=== PATIENT | female | born 1965 | race Caucasian/White ===

== ENCOUNTER 2016-12-18 11:28 | Inpatient (IN) | payer OTHER ==
[~2016-12-18] VITALS: Ht 152.4 cm; Wt 53.6 kg
[~2016-12-18 11:28] MED LIST: ALBU8.5H3 INH; AZIT500T3 PO; FURO-109 PO; GUAI120S26 PO; IBUP-1542 PO; POTA8CAP PO; SENN-8 PO; TRAM50TA2 PO
--- NOTE | 2016-12-18 11:39 | ERA ---
ER Documentation Chief Complaint Date/Time DATE: 12/18/16 TIME: 11:39 Chief Complaint chest tightness for 2 wks with no associated cough and congestion no n/v HPI The patient is a 51-year-old female, presenting to the ER because of intermittent substernal chest tightness 6/10 for the last 2 weeks, associated with dyspnea. She denies fever, chills, neck pain, chest pain with exertion or vomiting or diaphoresis. He denies abdominal pain, vomiting, dysuria, diarrhea. She does not smoke or drink Past medical history: History of left breast carcinoma undergoing chemotherapy Past surgical history: Left breast lumpectomy ROS All systems reviewed and are negative except as per history of present illness. Medications Home Meds Active Scripts Albuterol Sulfate* (Proair HFA*) 8.5 Gm Hfa.aer.ad, 2 PUFF INH Q4, #1 INHALER Prov:JENNY MEZA PA-C 10/15/16 Tramadol HCl (Tramadol HCl) 50 Mg Tablet, 50 MG PO Q6 Y for PAIN, #20 TAB Prov:COLT CANTU NP 10/03/16 Ibuprofen* (Motrin*) 600 Mg Tab, 600 MG PO Q6H Y for PAIN AND OR ELEVATED TEMP, #30 TAB Prov:COLT CANTU NP 10/03/16 Furosemide* (Lasix*) 40 Mg Tablet, 40 MG PO DAILY, #20 TAB Prov:SOY KC MD 12/21/15 Sennosides/Docusate Sodium* (Senna-S*) 1 Tab Tablet, 2 TAB PO DAILY for 30 Days , TAB Prov:POLO ALEXANDER 10/19/15 Potassium Chloride* (Potassium Chloride*) 8 Meq Capsule.er, 8 MEQ PO DAILY for 30 Days, CAP Prov:BRITANY MEJIAS MD 10/17/15 Discontinued Scripts Ghbalafdhqj-C-Fwpavemhao Hb* (Guaifenesin* DM Syrup) 120 Ml Syrup, 10 ML PO Q4H Y for COUGH, #120 ML Prov:JENNY MEZA PA-C 10/15/16 Ibuprofen* (Motrin*) 600 Mg Tab, 600 MG PO Q6, #30 TAB Prov:JENNY MEZA PA-C 10/15/16 Albuterol Sulfate* (Proair HFA*) 8.5 Gm Hfa.aer.ad, 2 PUFF INH Q4, #1 INHALER Prov:MALLORIE SOUZA 09/15/16 Azithromycin* (Zithromax*) 500 Mg Tablet, 500 MG PO DAILY for 5 Days, TAB Prov:MALLORIE SOUZA 09/15/16 Ibuprofen* (Motrin*) 600 Mg Tab, 600 MG PO Q6H Y for PAIN AND OR ELEVATED TEMP, #30 TAB Prov:MOISSÉ TONY [employer] ATTENDANT 06/07/16 Allergies Allergies: Coded Allergies: No Known Allergy (Verified , 09/15/16) PMhx/Soc History of Surgery: Yes (left sided mastectomy) Anesthesia Reaction: No Hx Neurological Disorder: No Hx Respiratory Disorders: No Hx Cardiac Disorders: No Hx Psychiatric Problems: No Hx Miscellaneous Medical Probl: Yes (breast cancer) Hx Alcohol Use: No Hx Substance Use: No Hx Tobacco Use: No Physical Exam Vitals Vital Signs Date Time Temp Pulse Resp B/P Pulse Ox O2 Delivery O2 Flow Rate FiO2 12/18/16 12:34 97.8 79 18 114/74 98 Room Air 12/18/16 11:30 98.8 45 20 122/81 99 Physical Exam Const: No acute distress. Head: Atraumatic. Eyes: Normal Conjunctiva. ENT: Normal External Ears, Nose and Mouth. Neck: Full range of motion. No meningismus. Resp: Clear to auscultation bilaterally. Cardio: Regular rate and rhythm, no murmurs. Abd: Soft, non distended, normal bowel sounds, non tender. Skin: No petechiae or rashes. Back: No midline or flank tenderness. Ext: No cyanosis, or edema. Neur: Awake and alert. No focal deficit Psych: Normal Mood and Affect. Result Diagram: 12/18/16 1230 12/18/16 1230 Results 24 hrs Laboratory Tests Test 12/18/16 12:30 Activated Partial Thromboplast Time 24.9Sec Anion Gap 17 Basophils # 0.010^3/ul Basophils % 0.6% Blood Urea Nitrogen 14mg/dl Calcium Level 9.3mg/dl Carbon Dioxide Level 26mmol/L Chloride Level 104mmol/L Creatinine 0.61mg/dl Eosinophils # 0.110^3/ul Eosinophils % 1.7% Glucose Level 91mg/dl Hematocrit 41.0% Hemoglobin 13.6g/dl INR International Normalized Ratio 1.01 Lymphocytes # 1.510^3/ul Lymphocytes % 32.3% Magnesium Level 2.2mg/dl Mean Corpuscular Hemoglobin 28.7pg Mean Corpuscular Hemoglobin Concent 33.2g/dl Mean Corpuscular Volume 86.5fl Mean Platelet Volume 9.9fl Monocytes # 0.410^3/ul Monocytes % 7.9% Neutrophils # 2.710^3/ul Neutrophils % 57.3% Nucleated Red Blood Cells # 0.010^3/ul Nucleated Red Blood Cells % 0.0/100WBC Platelet Count 99828^3/UL Potassium Level 4.0mmol/L Prothrombin Time 13.3Sec Prothrombin Time Ratio 1.0 Red Blood Count 4.7410^6/ul Red Cell Distribution Width 17.7% Serum HCG, Qualitative NEGATIVE Sodium Level 143mmol/L Troponin I < 0.012ng/ml White Blood Count 4.710^3/ul Current Medications Medications (Trade) Dose Ordered Sig/Katerin Route PRN Reason Start Time Stop Time Status Last Admin Dose Admin IV Flush 10 ml 10 ml STK-MED ONCE .ROUTE 12/18/16 13:29 12/18/16 13:30 DC 12/18/16 13:52 Sodium Chloride (NS) 100 ml @ ud STK-MED ONCE .ROUTE 12/18/16 13:29 12/18/16 13:30 DC 12/18/16 13:53 Iodixanol (Visipaque Locm) 100 ml STK-MED ONCE .ROUTE 12/18/16 13:29 12/18/16 13:30 DC 12/18/16 13:48 Iodixanol (Visipaque Locm) 50 ml STK-MED ONCE .ROUTE 12/18/16 13:29 12/18/16 13:30 DC 12/18/16 13:48 Procedures/MDM EKG: Read by emergency physician at 11:38 PM Rate/Rhythm: Normal Sinus Rhythm 86 beats/min QRS, ST, T-waves: No ST elevation, no T inversion, PVC, bigeminy Impression: Abnormal EKG EKG: Read by emergency physician at 12:15 PM Rate/Rhythm: Normal Sinus Rhythm 78 beats/min QRS, ST, T-waves: No ST elevation, no T inversion, PVC, low voltage Impression: Abnormal EKG [place] [address] Radiology Main Line: [phone] DIAGNOSTIC IMAGING REPORT Patient: TRINI CARRERA : 1965 Age: 51 Sex: F MR #: [id number] DOS: 12/18/16 1137 Ordering MD: LOULOU CONNELLY MD Location: E/R Room/Bed: PROCEDURE: Chest Radiograph. CLINICAL INDICATION: Chest pain. TECHNIQUE: Single frontal chest radiograph. COMPARISON: Chest radiograph 10/15/2016 FINDINGS: A right chest wall port infusion catheter remains in place. There are small to moderate bilateral pleural effusions with adjacent atelectasis/infiltrate, stable to slightly worsened. Heart size is poorly evaluated. Right axillary clips are present. The bones are intact. IMPRESSION: 1. Bilateral pleural effusions with adjacent atelectasis/infiltrate, stable to slightly worsened when compared to 10/15/2016. 2. Otherwise stable radiographic appearance of the chest. RPTAT: KK .Ranjeet Blakely MD, MD Date Time Electronically viewed and signed by .Ranjeet Blakely MD, MD on 2016 12:34 .B/ CC: LOULOU CONNELLY MD [place] [address] Radiology Main Line: [phone] DIAGNOSTIC IMAGING REPORT Patient: TRINI CARRERA : 1965 Age: 51 Sex: F MR #: [id number] DOS: 12/18/16 1146 Ordering MD: LOULOU CONNELLY MD Location: E/R Room/Bed: PROCEDURE: CT ANGIOGRAPHY CHEST CLINICAL INDICATION: Shortness of breath TECHNIQUE: Volumetrically acquired images of the thorax obtained with intravenous contrast were reformatted in the axial, coronal, and sagittal planes. CTDI = 6.0 mGy; DLP = 212 mGy-cm. 100 cc of Omnipaque 350 was administered. 3D MIP multiplanar reconstructions were performed and evaluated on the workstation. One or more of the following dose reduction technique were used: Automatic exposure control, adjustment of the mA and/or kV according to patient size, and use of iterative reconstruction technique. COMPARISON: Chest x-ray from 12/18/2016. FINDINGS: LOWER NECK AND CHEST WALL: Normal. AIRWAYS: The trachea and large airways are normal. Minimal bronchial wall thickening is seen. LUNGS: There is mild lung scarring seen at the lung bases. Dependent atelectasis is seen. The lungs otherwise clear. No suspicious nodules, masses, or consolidation. PLEURA: Moderate bilateral pleural effusion with associated atelectasis.. LYMPH NODES: No significant axillary, hilar, or mediastinal lymphadenopathy by CT size criteria. CARDIAC: The heart size is normal. No pericardial effusion. VASCULAR: Technically adequate opacification of the pulmonary arteries; no fill defects are seen. The aorta and main pulmonary artery are normal in caliber. OSSEOUS: No suspicious osseous lesions. Limited evaluation of the upper abdomen is unremarkable. IMPRESSION: 1. No pulmonary embolism. 2. Moderate bilateral effusions with associated atelectasis. Minimal bronchial wall thickening may be sequela of bronchitis, asthma, or other nonspecific airway inflammation. RPTAT:PP .Abhishek Gaming MD, MD Date Time Electronically viewed and signed by .Ahbishek Gaming MD, MD on 12/18/2016 13:58 .V/ CC: LOULOU CONNELLY MD MEDICAL MAKING DECISION: The patient is a 51-year-old female, presenting with acute chest pain. She was treated with aspirin 325 mg p.o. and 1 inch of nitroglycerin with good response. The differential diagnoses considered include but are not limited to acute coronary syndrome, acute myocardial infarction, pericarditis, pulmonary embolism, aortic dissection, pneumonia, pleural effusion, pneumothorax, GERD, chest wall pain. Departure Diagnosis: Primary Impression: Chest pain Additional Impression: Bilateral pleural effusion Condition: Stable Comments I discussed the findings with the patient. I discussed the patient with the on- call hospitalist Dr. Rueda who was made aware of the lab, the treatment, the patient condition. The patient is admitted to telemetry at 2:20 PM LOULOU CONNELLY MD Dec 18, 2016 11:39
[2016-12-18 12:34] VITALS: TEMP 97.8
--- NOTE | 2016-12-18 12:34 | RADRPT ---
PROCEDURE: Chest Radiograph. CLINICAL INDICATION: Chest pain. TECHNIQUE: Single frontal chest radiograph. COMPARISON: Chest radiograph 10/15/2016 FINDINGS: A right chest wall port infusion catheter remains in place. There are small to moderate bilateral p leural effusions with adjacent atelectasis/infiltrate, stable to slightly worsened. Heart size is p oorly evaluated. Right axillary clips are present. The bones are intact. IMPRESSION: 1. Bilateral pleural effusions with adjacent atelectasis/infiltrate, stable to slightly worsened wh en compared to 10/15/2016. 2. Otherwise stable radiographic appearance of the chest. RPTAT: KK .Ranjeet Blakely MD, MD Date Time Electronically viewed and signed by .Ranjeet Blakely MD, on 12/18/2016 12:34 .B/
[2016-12-18 12:42] LABS: ADD SCAN DIFF NO
[2016-12-18 12:50] LABS: BASOPHILS % 0.6 % (0.0-2.0); EOSINOPHILS # 0.1 10^3/ul (0.0-0.5); EOSINOPHILS % 1.7 % (0.0-7.0); HEMOGLOBIN 13.6 g/dl (12.0-16.0); LYMPHOCYTES # 1.5 10^3/ul (0.8-2.9); LYMPHOCYTES % 32.3 % (15.0-51.0); MEAN CORPUSCULAR HEMOGLOBIN 28.7 pg (29.0-33.0); MEAN CORPUSCULAR HGB CONC 33.2 g/dl (32.0-37.0); MEAN CORPUSCULAR VOLUME 86.5 fl (82.0-101.0); MEAN PLATELET VOLUME 9.9 fl (7.4-10.4); MONOCYTE # 0.4 10^3/ul (0.3-0.9); MONOCYTES % 7.9 % (0.0-11.0); NEUTROPHIL # 2.7 10^3/ul (1.6-7.5); NEUTROPHILS % 57.3 % (39.0-77.0); PLATELET COUNT 289 10^3/UL (140-415); RED BLOOD COUNT 4.74 10^6/ul (4.20-5.40); RED CELL DISTRIBUTION WIDTH 17.7 % (11.5-14.5); WHITE BLOOD COUNT 4.7 10^3/ul (4.8-10.8)
[2016-12-18 12:55] LABS: CHLORIDE 104 mmol/L (97-110)
[2016-12-18 12:56] LABS: INR 1.01; PROTIME 13.3 Sec (12.2-14.2); SODIUM 143 mmol/L (135-144)
[2016-12-18 12:57] LABS: PARTIAL THROMBOPLASTIN TIME 24.9 Sec (25.0-35.0)
[2016-12-18 12:58] LABS: CREATININE 0.61 mg/dl (0.44-1.00)
[2016-12-18 12:59] LABS: ANION GAP 17 (8-16); BLOOD UREA NITROGEN 14 mg/dl (7-20); CALCIUM 9.3 mg/dl (8.4-10.2); CARBON DIOXIDE 26 mmol/L (21-31); GLUCOSE 91 mg/dl (70-220)
[2016-12-18 13:19] LABS: TROPONIN-I < 0.012 ng/ml (0.00-0.12)
[2016-12-18] MEDS ORDERED: IODIXANOL LOCM 100 ML BTL ONE (13:29)
[2016-12-18] MEDS ORDERED: IODIXANOL LOCM 50 ML BTL ONE (13:29)
[2016-12-18] MEDS ORDERED: SOD CHLORIDE 0.9% 100 ML ONE (13:29)
--- NOTE | 2016-12-18 13:58 | RADRPT ---
PROCEDURE: CT ANGIOGRAPHY CHEST CLINICAL INDICATION: Shortness of breath TECHNIQUE: Volumetrically acquired images of the thorax obtained with intravenous contrast were re formatted in the axial, coronal, and sagittal planes. CTDI = 6.0 mGy; DLP = 212 mGy-cm. 100 cc of O mnipaque 350 was administered. 3D MIP multiplanar reconstructions were performed and evaluated on t workstation. One or more of the following dose reduction technique were used: Automatic exposure control, adjustment of the mA and/or kV according to patient size, and use of iterative reconstructi on technique. COMPARISON: Chest x-ray from 12/18/2016. FINDINGS: LOWER NECK AND CHEST WALL: Normal. AIRWAYS: The trachea and large airways are normal. Minimal bronchial wall thickening is seen. LUNGS: There is mild lung scarring seen at the lung bases. Dependent atelectasis is seen. The lung s otherwise clear. No suspicious nodules, masses, or consolidation. PLEURA: Moderate bilateral pleural effusion with associated atelectasis.. LYMPH NODES: No significant axillary, hilar, or mediastinal lymphadenopathy by CT size criteria. CARDIAC: The heart size is normal. No pericardial effusion. VASCULAR: Technically adequate opacification of the pulmonary arteries; no fill defects are seen. T aorta and main pulmonary artery are normal in caliber. OSSEOUS: No suspicious osseous lesions. Limited evaluation of the upper abdomen is unremarkable. IMPRESSION: 1. No pulmonary embolism. 2. Moderate bilateral effusions with associated atelectasis. Minimal bronchial wall thickening may b e sequela of bronchitis, asthma, or other nonspecific airway inflammation. RPTAT:PP .Abhishek Gaming MD, Date Time Electronically viewed and signed by .Abhishek Gaming MD, MD on 12/18/2016 13:58 .V/
[2016-12-18] MEDS ORDERED: NITROGLYCERIN 2% 1 GM OINT PKT TD ONE (14:30)
[2016-12-18] MEDS ORDERED: SOD CHLORIDE 0.9% 1,000 ML IV ONE (14:30)
[2016-12-18] MEDS ORDERED: ASPIRIN 325 MG TAB PO ONE (14:30)
[2016-12-18 17:12] VITALS: PULSE 77
[2016-12-18 17:47] VITALS: Ht 152.4 cm; Wt 53.6 kg
[2016-12-18] MEDS ORDERED: IBUPROFEN 600 MG TAB PO PRN (18:30)
[2016-12-18] MEDS ORDERED: ONDANSETRON 4 MG INJ IV PRN (18:30)
[2016-12-18] MEDS ORDERED: traMADol 50 MG TAB PO PRN (18:30)
[2016-12-18] MEDS ORDERED: NACL 0.9% 3 ML SYG IV SCH (18:30)
[2016-12-18] MEDS ORDERED: morphine 2 MG INJ IV PRN (18:30)
[2016-12-18] MEDS ORDERED: ZOLPIDEM 5 MG TAB PO PRN (18:30)
[2016-12-18] MEDS ORDERED: HYDROCODONE/APAP (5/325) TAB PO PRN (18:30)
[2016-12-18] MEDS ORDERED: ACETAMINOPHEN 325 MG TAB PO PRN (18:30)
[2016-12-18] MEDS ORDERED: VANCOMYCIN IV PER PHARMACY XX SCH (18:30)
[2016-12-18 18:49] LABS: CREATINE KINASE 65 IU/L (23-200)
[2016-12-18 18:59] LABS: CK-MB 0.41 ng/ml (0.0-2.4)
[2016-12-18 19:06] LABS: TROPONIN-I < 0.012 ng/ml (0.00-0.12)
[2016-12-18 20:00] VITALS: PULSE 82
[2016-12-18] MEDS ORDERED: VANCOMYCIN 1 GM in NS 250 ML IVPB SCH (20:00)
[2016-12-18 20:01] VITALS: BP 111/76; RESP 16
[2016-12-18] MEDS: ALBUTEROL HFA 8 GM INHALER INH SCH (20:36)
--- NOTE | 2016-12-18 20:40 | HP ---
DATE OF ADMISSION: 12/18/2016 CHIEF COMPLAINT: Chest pain. HISTORY OF PRESENT ILLNESS: The patient is a 51-year-old female with a history of left-sided breast cancer as well as a left upper extremity cellulitis. The patient presents with chest pain. She st ates it has been going on for 2 weeks. She has no cardiac history. She has no other complaints. PAST MEDICAL HISTORY: As per HPI. HOME MEDICATIONS: 1. Albuterol. 2. Tramadol. 3. Ibuprofen. 4. Furosemide. 5. Senna. 6. Potassium. ALLERGIES: NO KNOWN DRUG ALLERGIES. FAMILY HISTORY: Noncontributory. SOCIAL HISTORY: No alcohol, tobacco or drug use. REVIEW OF SYSTEMS: A 12-point review of systems negative except as in HPI. PHYSICAL EXAMINATION: VITAL SIGNS: Temperature is 97.8, pulse 79, respirations 18, BP is 114/74, saturation 98% room air. GENERAL: No acute distress, alert and oriented. HEENT: Normocephalic, atraumatic. Pupils equal, round, and reactive to light. CHEST: Clear to auscultation. CARDIOVASCULAR: Regular rate and rhythm. ABDOMEN: Nondistended, nontender. EXTREMITIES: No clubbing, cyanosis, or edema. MUSCULOSKELETAL: Tenderness to palpation in the chest. LABORATORIES: White count 4.7, hemoglobin 13.6. Chemistry within normal limits. Troponins were ne gative x2. DIAGNOSTICS: Chest x-ray shows bilateral pleural effusions with adjacent atelectasis infiltrate, st able, slightly worsened compared to 10/15/2016. CT of the chest shows no pulmonary embolism, modera te bilateral effusions with associated atelectasis, possible bronchitis. ASSESSMENT AND PLAN: 1. Chest pain is atypical, likely musculoskeletal. It is reproducible with palpation. First set o f troponins are negative. EKG shows no signs of ischemia, sinus rhythm. We will follow up on third troponin. If stable, we will discharge. 2. History of breast cancer, stable. 3. History of left arm cellulitis, stable, no acute issues. 4. Prophylaxis: Lovenox. Dictated By: YASMINE SAHU MD BS/NTS Conf#: [id number] DID#: [id number]
[2016-12-19] VITALS (7 sets, daily range): BP systolic 101–119; BP diastolic 59–73; PULSE 82–87; RESP 16–20
[2016-12-19 00:03] LABS: CREATINE KINASE 54 IU/L (23-200)
[2016-12-19 00:16] LABS: CK-MB < 0.22 ng/ml (0.0-2.4)
[2016-12-19 00:17] LABS: TROPONIN-I < 0.012 ng/ml (0.00-0.12)
[2016-12-19] MEDS: ALBUTEROL HFA 8 GM INHALER INH SCH ×3 (01:00→08:43)
[2016-12-19] MEDS ORDERED: VANCOMYCIN 750 MG in SOD CHLORIDE 0.9% 150 ML IVPB SCH (08:00)
[2016-12-19] MEDS ORDERED: FUROSEMIDE 40 MG TAB PO SCH (09:00)
[2016-12-19] MEDS ORDERED: INFLUENZA VIRUS VACCINE 0.5 ML (DISPENSING) IM* ONE (09:00)
[2016-12-19] MEDS ORDERED: SENNA/DOCUSATE NA (8.6MG/50MG) TAB PO SCH (09:00)
[2016-12-19] MEDS ORDERED: POTASSIUM CHLORIDE (SR) 8 MEQ CAP PO SCH (09:00)
[2016-12-19] MEDS ORDERED: ENOXAPARIN 40 MG/0.4 ML SYG SC SCH (09:00)
[2016-12-19 10:02] LABS: ADD SCAN DIFF NO
[2016-12-19 10:04] LABS: BASOPHILS % 0.4 % (0.0-2.0); EOSINOPHILS # 0.1 10^3/ul (0.0-0.5); EOSINOPHILS % 2.4 % (0.0-7.0); HEMATOCRIT 39.9 % (37.0-47.0); HEMOGLOBIN 13.1 g/dl (12.0-16.0); LYMPHOCYTES # 1.3 10^3/ul (0.8-2.9); LYMPHOCYTES % 28.2 % (15.0-51.0); MEAN CORPUSCULAR HEMOGLOBIN 28.1 pg (29.0-33.0); MEAN CORPUSCULAR HGB CONC 32.8 g/dl (32.0-37.0); MEAN CORPUSCULAR VOLUME 85.4 fl (82.0-101.0); MEAN PLATELET VOLUME 9.7 fl (7.4-10.4); MONOCYTE # 0.3 10^3/ul (0.3-0.9); MONOCYTES % 5.7 % (0.0-11.0); NEUTROPHIL # 2.9 10^3/ul (1.6-7.5); NEUTROPHILS % 63.1 % (39.0-77.0); PLATELET COUNT 270 10^3/UL (140-415); RED BLOOD COUNT 4.67 10^6/ul (4.20-5.40); WHITE BLOOD COUNT 4.5 10^3/ul (4.8-10.8)
[2016-12-19 10:17] LABS: POTASSIUM 3.8 mmol/L (3.5-5.1)
[2016-12-19 10:19] LABS: CREATININE 0.54 mg/dl (0.44-1.00)
[2016-12-19 10:20] LABS: CALCIUM 8.8 mg/dl (8.4-10.2); MAGNESIUM 2.2 mg/dl (1.7-2.5); PHOSPHORUS 2.8 mg/dl (2.5-4.9)
--- NOTE | 2016-12-19 10:39 | PDOCDIS ---
Discharge Instructions CONDITION Patient Condition: Good HOME CARE INSTRUCTIONS: Diet Instructions: Regular ACTIVITY: Activity Restrictions: No Restrictions FOLLOW UP/APPOINTMENTS Appointments F/U WITH YOUR PCP IN 1-2 WEEKS YASMINE SAHU Dec 19, 2016 10:38
--- NOTE | 2016-12-19 15:34 | DS ---
DATE OF ADMISSION: 12/18/2016 DATE OF DISCHARGE: 12/19/2016 DISCHARGE DIAGNOSES: 1. Chest pain, musculoskeletal in origin, ACS ruled out. 2. History of breast cancer, stable. 3. History of left arm cellulitis, stable. No acute issues. HOSPITAL COURSE: The patient is a 51-year-old female with history of left-sided breast cancer statu s post chemotherapy and what sounds like either a lumpectomy or mastectomy. The patient has recurre nt left upper extremity cellulitis in the past, but at this time, she presented with chest pain. No reports of any cellulitis in the arm. The patient's chest pain was reproducible with palpation. S he was admitted to rule out any ACS. Troponins are negative x3. Of note, her EKG showed no signs o f ischemia, sinus rhythm. The patient's chest pain was improved on day of discharge. She was recom mended to take ibuprofen for chest pain. On the day of discharge, the patient's vitals and labs wer e stable. She had no acute complaints. Questions were answered. CONDITION ON DISCHARGE: Stable. DISPOSITION: To home. MEDICATIONS: The patient is to continue her usual home medications. No new medications prescribed. FOLLOWUP: The patient is to follow up with PCP in 1 to 2 weeks. Greater than 30 minutes was spent coordinating discharge of patient. Dictated By: YASMINE SAHU MD BS/NTS Conf#: [id number] DID#: [id number]
== END 2016-12-19 13:12 | disposition home or self-care (01) | DRG 313 ==
LOC: E/R 11:28 → MS4 14:25
PROVIDERS: ADMIT Internal Medicine; ATTEND Internal Medicine
DX: R07.89 Other chest pain (principal); Z85.3 Personal history of malignant neoplasm of breast
CPT/HCPCS: 36415; 71010; 71275; 80048; 82550; 82553; 83735; 84100; 84484; 84703; 85025; 85610; 85730; 90686; 93005; J1650; J3370; J7030; Q9967

== ENCOUNTER 2017-01-13 10:30 | Emergency (ER) | payer OTHER ==
[~2017-01-13] VITALS: Ht 152.4 cm; Wt 54.5 kg
[~2017-01-13 10:30] MED LIST changes: -AZIT500T3 PO; -GUAI120S26 PO
[2017-01-13 10:33] VITALS: Ht 152.4 cm; Wt 54.5 kg
[2017-01-13] MEDS ORDERED: PROM5SYR2 PO (11:00)
[2017-01-13] MEDS ORDERED: AZIT250T94 PO (11:00)
--- NOTE | 2017-01-13 11:09 | ERD ---
ER Documentation Chief Complaint Date/Time DATE: 01/13/17 TIME: 11:06 Chief Complaint Complains of cough x 1 week HPI Patient is a 51-year-old female who presents complaining of cough with some yellow phlegm for the past week. She states during the first few days she has had fever but she no longer has fever. Cough is worse at night. Denies any shortness of breath or palpitations. Denies any nausea or vomiting or diarrhea. She has been taking NyQuil to help with the symptoms. ROS All systems reviewed and are negative except as per history of present illness. Medications Home Meds Active Scripts Promethazine HCl/Codeine (Prometh-Codein 6.25-10 mg/5 ml) 5 Ml Syrup, 5 ML PO Q6 , #4 OZ Prov:STEVO MAXWELL PA-C 01/13/17 Azithromycin* (Zithromax*) 250 Mg Tablet, 250 MG PO .ZPACK DIRECTED, #6 TAB TAKE 500 MG (2 TABS) THE FIRST DAY THEN 250 MG (1 TAB) DAYS 2-5 Prov:STEVO MAXWELL PA-C 01/13/17 Albuterol Sulfate* (Proair HFA*) 8.5 Gm Hfa.aer.ad, 2 PUFF INH Q4, #1 INHALER Prov:JENNY MEZA PA-C 10/15/16 Tramadol HCl (Tramadol HCl) 50 Mg Tablet, 50 MG PO Q6 Y for PAIN, #20 TAB Prov:COLT CANTU NP 10/03/16 Ibuprofen* (Motrin*) 600 Mg Tab, 600 MG PO Q6H Y for PAIN AND OR ELEVATED TEMP, #30 TAB Prov:COLT CANTU NP 10/03/16 Furosemide* (Lasix*) 40 Mg Tablet, 40 MG PO DAILY, #20 TAB Prov:SOY KC MD 12/21/15 Sennosides/Docusate Sodium* (Senna-S*) 1 Tab Tablet, 2 TAB PO DAILY for 30 Days , TAB Prov:POLO ALEXANDER 10/19/15 Potassium Chloride* (Potassium Chloride*) 8 Meq Capsule.er, 8 MEQ PO DAILY for 30 Days, CAP Prov:BRITANY MEJIAS MD 10/17/15 Allergies Allergies: Coded Allergies: No Known Allergy (Verified , 09/15/16) PMhx/Soc History of Surgery: Yes (LEFT MASTECTOMY) Anesthesia Reaction: No Hx Neurological Disorder: No Hx Respiratory Disorders: No Hx Cardiac Disorders: No Hx Psychiatric Problems: No Hx Miscellaneous Medical Probl: Yes (BREAST CANCER) Hx Alcohol Use: No Hx Substance Use: No Hx Tobacco Use: No FmHx Family History: No diabetes Physical Exam Vitals Vital Signs Date Time Temp Pulse Resp B/P Pulse Ox O2 Delivery O2 Flow Rate FiO2 01/13/17 10:33 98.0 94 20 118/75 97 Physical Exam General: well developed, well nourished, alert, nontoxic, no distress Head: normocephalic, atraumatic Eyes: PERRL, normal conjunctiva Neck: Supple, nontender, no lymphadenopathy, no midline tenderness Oropharynx: no tonsilar erythema or edema, uvula midline, no exudates, no kissing tonsils, no drooling Respiratory: Clear to auscaultation bilaterally, speaks in full sentences, no use of accesory muscles or labored breathing, no rales, ronchi, or wheezing Cardiovascular: RRR, No murmurs GI: soft, non tender, non distended, negative murphys sign, negative mcburneys point tenderness, no cva tenderness bilaterally, no rebound or guarding Procedures/MDM 51-year-old female presents with cough and congestion. Vital signs are all within normal limits that she is well-appearing in no distress. Her lungs are clear and I doubt pneumonia. Patient is discharged with azithromycin and cough syrup. Recommended this patient follow up with her primary care doctor within 48 hours or return to the emergency room for any worsening of symptoms. However this time I do believe there is suitable for outpatient management. I answered all their questions and they agreed with the plan and were discharged home. Departure Diagnosis: Primary Impression: Bronchitis Condition: Stable Patient Instructions: Bronchitis, Antiobiotic Treatment (Adult) Additional Instructions: Llame al doctor LULU y kathi alexey JOANIE PARA DENTRO DE 1-2 ABRAMS.Dgale a la secretaria que nosotros le instruimos hacer esta joanie.Avise o llame si isaac condicin se empeora antes de la joanie. Regresa aqui si peor o no mejor. STEVO MAXWELL PA-C Jan 13, 2017 11:09
== END 2017-01-13 11:33 | disposition home or self-care (01) ==
LOC: FTE 10:30
DX: J20.9 Acute bronchitis, unspecified (principal); Z85.3 Personal history of malignant neoplasm of breast
CPT/HCPCS: 99284

== ENCOUNTER 2017-02-25 10:28 | Emergency (ER) | payer OTHER ==
[~2017-02-25] VITALS: Ht 154.9 cm; Wt 56.0 kg
[~2017-02-25 10:28] MED LIST changes: +AZIT250T94 PO; +PROM5SYR2 PO
[2017-02-25 10:34] VITALS: Ht 154.9 cm; Wt 56.0 kg
--- NOTE | 2017-02-25 11:17 | ERA ---
ER Documentation Chief Complaint Date/Time DATE: 02/25/17 TIME: 11:17 Chief Complaint CHEST PAIN , SOB X 1 WEEK HPI The patient is a 51-year-old female, presenting to the ER because of intermittent substernal chest pain and dyspnea for 1 week. She has similar symptoms previously. The chest pain is worse with movement. She denies pleuritic chest pain, chest pain with exertion of vomiting or diaphoresis. She denies abdominal pain, dysuria, diarrhea. She does not smoke or drink Past medical history: History of left breast cancer, undergoing chemotherapy Past surgical history: Left lumpectomy ROS All systems reviewed and are negative except as per history of present illness. Medications Home Meds Active Scripts Promethazine HCl/Codeine (Prometh-Codein 6.25-10 mg/5 ml) 5 Ml Syrup, 5 ML PO Q6 , #4 OZ Prov:STEVO MAXWELL PA-C 01/13/17 Azithromycin* (Zithromax*) 250 Mg Tablet, 250 MG PO .ZPACK DIRECTED, #6 TAB TAKE 500 MG (2 TABS) THE FIRST DAY THEN 250 MG (1 TAB) DAYS 2-5 Prov:STEVO MAXWELL PA-C 01/13/17 Albuterol Sulfate* (Proair HFA*) 8.5 Gm Hfa.aer.ad, 2 PUFF INH Q4, #1 INHALER Prov:JENNY MEZA PA-C 10/15/16 Tramadol HCl (Tramadol HCl) 50 Mg Tablet, 50 MG PO Q6 Y for PAIN, #20 TAB Prov:COLT CANTU NP 10/03/16 Ibuprofen* (Motrin*) 600 Mg Tab, 600 MG PO Q6H Y for PAIN AND OR ELEVATED TEMP, #30 TAB Prov:COLT CANTU NP 10/03/16 Furosemide* (Lasix*) 40 Mg Tablet, 40 MG PO DAILY, #20 TAB Prov:SOY KC MD 12/21/15 Sennosides/Docusate Sodium* (Senna-S*) 1 Tab Tablet, 2 TAB PO DAILY for 30 Days , TAB Prov:POLO ALEXANDER 10/19/15 Potassium Chloride* (Potassium Chloride*) 8 Meq Capsule.er, 8 MEQ PO DAILY for 30 Days, CAP Prov:BRITANY MEJIAS MD 10/17/15 Reported Medications Capecitabine (Capecitabine) 500 Mg Tablet, 500 MG ORAL BID, #56 02/25/17 Allergies Allergies: Coded Allergies: No Known Allergy (Verified , 09/15/16) PMhx/Soc History of Surgery: Yes (LEFT MASTECTOMY) Anesthesia Reaction: No Hx Neurological Disorder: No Hx Respiratory Disorders: No Hx Cardiac Disorders: No Hx Psychiatric Problems: No Hx Miscellaneous Medical Probl: Yes (BREAST CANCER) Hx Alcohol Use: No Hx Substance Use: No Hx Tobacco Use: No Physical Exam Vitals Vital Signs Date Time Temp Pulse Resp B/P Pulse Ox O2 Delivery O2 Flow Rate FiO2 02/25/17 10:34 96.0 90 18 142/74 98 Physical Exam Const: No acute distress. Head: Atraumatic. Eyes: Normal Conjunctiva. ENT: Normal External Ears, Nose and Mouth. Neck: Full range of motion. No meningismus. Resp: Clear to auscultation bilaterally. Cardio: Regular rate and rhythm, no murmurs. Abd: Soft, non distended, normal bowel sounds, non tender. Skin: No petechiae or rashes. Back: No midline or flank tenderness. Ext: No cyanosis, or edema. Neur: Awake and alert. No focal deficit Psych: Normal Mood and Affect. Result Diagram: 02/25/17 1137 02/25/17 1137 Results 24 hrs Laboratory Tests Test 02/25/17 11:37 02/25/17 15:00 White Blood Count 3.510^3/ul Red Blood Count 4.3910^6/ul Hemoglobin 12.9g/dl Hematocrit 38.3% Mean Corpuscular Volume 87.2fl Mean Corpuscular Hemoglobin 29.4pg Mean Corpuscular Hemoglobin Concent 33.7g/dl Red Cell Distribution Width 18.8% Platelet Count 73386^3/UL Mean Platelet Volume 10.3fl Neutrophils % 77.1% Lymphocytes % 17.4% Monocytes % 2.0% Eosinophils % 2.6% Basophils % 0.6% Nucleated Red Blood Cells % 0.0/100WBC Neutrophils # 2.710^3/ul Lymphocytes # 0.610^3/ul Monocytes # 0.110^3/ul Eosinophils # 0.110^3/ul Basophils # 0.010^3/ul Nucleated Red Blood Cells # 0.010^3/ul Prothrombin Time 13.1Sec Prothrombin Time Ratio 1.0 INR International Normalized Ratio 0.99 Activated Partial Thromboplast Time 24.8Sec D-Dimer 674.40ng/ml D-Dimer Comment Sodium Level 138mmol/L Potassium Level 3.8mmol/L Chloride Level 100mmol/L Carbon Dioxide Level 26mmol/L Anion Gap 16 Blood Urea Nitrogen 20mg/dl Creatinine 0.52mg/dl Glucose Level 109mg/dl Calcium Level 9.2mg/dl Troponin I < 0.012ng/ml < 0.012ng/ml Current Medications Medications (Trade) Dose Ordered Sig/Katerin Route PRN Reason Start Time Stop Time Status Last Admin Dose Admin IV Flush 10 ml 10 ml STK-MED ONCE .ROUTE 02/25/17 14:12 02/25/17 14:13 DC 02/25/17 14:34 Sodium Chloride (NS) 100 ml @ ud STK-MED ONCE .ROUTE 02/25/17 14:12 02/25/17 14:13 DC 02/25/17 14:33 Iodixanol (Visipaque Locm) 100 ml STK-MED ONCE .ROUTE 02/25/17 14:12 02/25/17 14:13 DC 02/25/17 14:34 Procedures/MDM EKG: At 10:40 AM read by emergency physician Rate/Rhythm: Normal Sinus Rhythm 99 beats/min QRS, ST, T-waves: No ST elevation, no T inversion, low voltage, nonspecific T abnormality, prolonged QT Impression: Abnormal EKG EKG: At 12:09 PM read by emergency physician Rate/Rhythm: Normal Sinus Rhythm 86 beats/min QRS, ST, T-waves: No ST elevation, no T inversion, low voltage, nonspecific T abnormality Impression: Abnormal EKG [place] [id number] Radiology Main Line: [phone] DIAGNOSTIC IMAGING REPORT Patient: TRINI CARRERA : 1965 Age: 51 Sex: F MR #: [id number] DOS: 02/25/17 1125 Ordering MD: LOULOU CONNELLY MD Location: E/R Room/Bed: PROCEDURE: XR Chest. CLINICAL INDICATION: chest pain TECHNIQUE: Single frontal view of the chest was obtained COMPARISON: 12/18/2016 FINDINGS: The heart and mediastinum are within normal limits. There are bibasilar atelectatic changes and infiltrates with small to moderate bilateral pleural effusions. There is a right chest wall port in place. There is no pneumothorax. RPTAT: AA IMPRESSION: Small to moderate bilateral pleural effusions with underlying atelectasis/ infiltrates. .Javier Real MD, MD Date Time Electronically viewed and signed by .Javier Real MD, on 02/25/2017 11: 58 .S/ CC: LOULOU CONNELLY MD [place] [id number] Radiology Main Line: [phone] DIAGNOSTIC IMAGING REPORT Patient: TRINI CARRERA : 1965 Age: 51 Sex: F MR #: [id number] DOS: 02/25/17 1401 Ordering MD: LOULOU CONNELLY MD Location: E/R Room/Bed: PROCEDURE: CTA Chest and pulmonary angiogram. CLINICAL INDICATION: Chest pain and shortness of breath. History of breast cancer. TECHNIQUE: CT scan of the chest and CT pulmonary angiogram was performed on a multidetector high-resolution CT scanner. High-resolution thin slice coronal and sagittal imaging was obtained from the axial source images. 3-D volumetric rendered post processing was performed as well. The patient was examined following the uncomplicated intravenous administration of 99 cc of Visipaque 320. The images were reviewed on a PACS workstation. The total exam CTDI equals 16.90, and 8.37 and the total exam DLP equals 306.06 mGy-cm. One or more of the following dose reduction techniques were used: Automated exposure control. Adjustment of the mA and/or kV according to patient size. Use of iterative reconstruction technique. COMPARISON: CTA chest 12/18/2016 , and 03/06/2016. FINDINGS: CT chest: There are bilateral moderate pleural effusions with partial atelectasis of the lower lobes. There is atelectasis with significant volume loss of the right middle lobe. There is a calcified granuloma in the left upper lobe. There is diffuse mild bronchial wall thickening. The mediastinum is unremarkable without evidence for mass or lymphadenopathy. Right IJ Port-A-Cath remains in satisfactory position. The vascular structures of the mediastinum are normal in course and caliber. The heart size is normal without pericardial thickening or effusion. The axillary, subpectoral, and supraclavicular regions are unremarkable. Surgical clips are seen in the left axilla. Imaging obtained through the upper abdomen is equally unremarkable. The adrenal glands are symmetrically normal. The surrounding chest wall is unremarkable. The osseous structures are remarkable for a small lytic focus in the left posterior aspect of the T6 vertebral body. CT pulmonary angiogram: No thrombus, clot, filling defect, or pulmonary web is identified. The pulmonary arteries are normal in caliber and morphology. No filling defect is present to suggest pulmonary embolism. There is no evidence for pulmonary arterial hypertension. IMPRESSION: 1. No evidence for pulmonary embolism. 2. Moderate bilateral pleural effusions with partial atelectasis of the lower lobes. Volume loss of the right middle lobe with atelectasis of the middle segment. 3. Diffuse mild bronchial wall thickening which is frequently seen with bronchitis, asthma or other nonspecific airway inflammation. RPTAT: BB .Arik Patten MD, Date Time Electronically viewed and signed by .Arik Patten MD, MD on 02/25/2017 15:55 .O/ CC: LOULOU CONNELLY MD MEDICAL MAKING DECISION: The patient is a 51-year-old, presenting with acute chest pain and acute dyspnea, most likely related to her chemo and bilateral pleural effusion. She remains well emergency department She is going to have ultrasound-guided thoracentesis by radiologist prior to being discharged The differential diagnoses acute chest pain considered include but are not limited to acute coronary syndrome, acute myocardial infarction, pericarditis, pulmonary embolism, aortic dissection, pneumonia, pleural effusion, pneumothorax , GERD, chest wall pain. The differential diagnoses acute dyspnea considered include but are not limited to asthma, COPD, pneumonia, pulmonary embolus, pleural effusion, congestive heart failure. Departure Diagnosis: Primary Impression: Chest pain Additional Impression: Pleural effusion Condition: Good Comments The patient presents with chest pain and I considered pulmonary embolism, aortic dissection, pneumothorax among other diagnoses. Evaluation for acute coronary syndrome was performed. The HEART score (www.mdcalc.com) was utilized for risk stratification and found to be <= 3. Repeat EKG and troponin @ 3 hours were unchanged. Based on this evaluation the patients risk of major adverse cardiac events is <1%. Shared decision making occurred with patient and the decision has been made to discharge the patient for outpatient evaluation and functional study within 72 hours. The patient's blood pressure was elevated (>120/80) but appears stable without evidence of hypertension emergency or urgency. The patient was counseled about the risks of hypertension and urged to pursue outpatient monitoring and therapy within a week with their primary care physician. LOULOU CONNELLY MD February 25, 2017 11:17
[2017-02-25] MEDS ORDERED: CAPE500T13 ORAL (11:33)
[2017-02-25 11:57] LABS: ADD SCAN DIFF NO
--- NOTE | 2017-02-25 11:59 | RADRPT ---
PROCEDURE: XR Chest. CLINICAL INDICATION: chest pain TECHNIQUE: Single frontal view of the chest was obtained COMPARISON: 12/18/2016 FINDINGS: The heart and mediastinum are within normal limits. There are bibasilar atelectatic changes and infiltrates with small to moderate bilateral pleural eff usions. There is a right chest wall port in place. There is no pneumothorax. RPTAT: AA IMPRESSION: Small to moderate bilateral pleural effusions with underlying atelectasis/infiltrates. .Javier Real MD, MD Date Time Electronically viewed and signed by .Javier Real MD, on 02/25/2017 11:58 .S/
[2017-02-25 12:06] LABS: BASOPHILS % 0.6 % (0.0-2.0); EOSINOPHILS # 0.1 10^3/ul (0.0-0.5); EOSINOPHILS % 2.6 % (0.0-7.0); HEMATOCRIT 38.3 % (37.0-47.0); HEMOGLOBIN 12.9 g/dl (12.0-16.0); LYMPHOCYTES # 0.6 10^3/ul (0.8-2.9); LYMPHOCYTES % 17.4 % (15.0-51.0); MEAN CORPUSCULAR HEMOGLOBIN 29.4 pg (29.0-33.0); MEAN CORPUSCULAR HGB CONC 33.7 g/dl (32.0-37.0); MEAN CORPUSCULAR VOLUME 87.2 fl (82.0-101.0); MEAN PLATELET VOLUME 10.3 fl (7.4-10.4); MONOCYTE # 0.1 10^3/ul (0.3-0.9); NEUTROPHIL # 2.7 10^3/ul (1.6-7.5); NEUTROPHILS % 77.1 % (39.0-77.0); PLATELET COUNT 182 10^3/UL (140-415); RED BLOOD COUNT 4.39 10^6/ul (4.20-5.40); RED CELL DISTRIBUTION WIDTH 18.8 % (11.5-14.5); WHITE BLOOD COUNT 3.5 10^3/ul (4.8-10.8)
[2017-02-25 12:17] LABS: CHLORIDE 100 mmol/L (97-110)
[2017-02-25 12:18] LABS: POTASSIUM 3.8 mmol/L (3.5-5.1); SODIUM 138 mmol/L (135-144)
[2017-02-25 12:20] LABS: ANION GAP 16 (8-16); CARBON DIOXIDE 26 mmol/L (21-31); CREATININE 0.52 mg/dl (0.44-1.00)
[2017-02-25 12:21] LABS: BLOOD UREA NITROGEN 20 mg/dl (7-20); CALCIUM 9.2 mg/dl (8.4-10.2); GLUCOSE 109 mg/dl (70-220)
[2017-02-25 12:22] LABS: INR 0.99; PROTIME 13.1 Sec (12.2-14.2)
[2017-02-25 12:23] LABS: PARTIAL THROMBOPLASTIN TIME 24.8 Sec (25.0-35.0)
[2017-02-25 12:25] LABS: D-DIMER 674.4 ng/ml (<460)
[2017-02-25 12:40] LABS: TROPONIN-I < 0.012 ng/ml (0.00-0.12)
[2017-02-25] MEDS ORDERED: SOD CHLORIDE 0.9% 100 ML ONE (14:12)
[2017-02-25] MEDS ORDERED: IODIXANOL LOCM 100 ML BTL ONE (14:12)
--- NOTE | 2017-02-25 15:56 | RADRPT ---
PROCEDURE: CTA Chest and pulmonary angiogram. CLINICAL INDICATION: Chest pain and shortness of breath. History of breast cancer. TECHNIQUE: CT scan of the chest and CT pulmonary angiogram was performed on a multidetector high-r esolution CT scanner. High-resolution thin slice coronal and sagittal imaging was obtained from the axial source images. 3-D volumetric rendered post processing was performed as well. The patient w as examined following the uncomplicated intravenous administration of 99 cc of Visipaque 320. The im ages were reviewed on a PACS workstation. The total exam CTDI equals 16.90, and 8.37 and the total e xam DLP equals 306.06 mGy-cm. One or more of the following dose reduction techniques were used: Automated exposure control. Adjustment of the mA and/or kV according to patient size. Use of iterative reconstruction technique. COMPARISON: CTA chest 12/18/2016 , and 03/06/2016. FINDINGS: CT chest: There are bilateral moderate pleural effusions with partial atelectasis of the lower lobes. There is atelectasis with significant volume loss of the right middle lobe. There is a calcified granuloma i n the left upper lobe. There is diffuse mild bronchial wall thickening. The mediastinum is unremarkable without evidence for mass or lymphadenopathy. Right IJ Port-A-Cath r emains in satisfactory position. The vascular structures of the mediastinum are normal in course and caliber. The heart size is normal without pericardial thickening or effusion. The axillary, subpe ctoral, and supraclavicular regions are unremarkable. Surgical clips are seen in the left axilla. Imaging obtained through the upper abdomen is equally unremarkable. The adrenal glands are symmetri brittany normal. The surrounding chest wall is unremarkable. The osseous structures are remarkable fo r a small lytic focus in the left posterior aspect of the T6 vertebral body. CT pulmonary angiogram: No thrombus, clot, filling defect, or pulmonary web is identified. The pulmonary arteries are parish l in caliber and morphology. No filling defect is present to suggest pulmonary embolism. There is no evidence for pulmonary arterial hypertension. IMPRESSION: 1. No evidence for pulmonary embolism. 2. Moderate bilateral pleural effusions with partial atelectasis of the lower lobes. Volume loss o f the right middle lobe with atelectasis of the middle segment. 3. Diffuse mild bronchial wall thickening which is frequently seen with bronchitis, asthma or other nonspecific airway inflammation. RPTAT: BB .Arik Patten MD, MD Date Time Electronically viewed and signed by .Arik Patten MD, MD on 02/25/2017 15:55 .O/
[2017-02-25 17:19] LABS: CREATINE KINASE 38 IU/L (23-200)
[2017-02-25 17:31] LABS: CK-MB < 0.22 ng/ml (0.0-2.4)
[2017-02-25 17:36] LABS: TROPONIN-I < 0.012 ng/ml (0.00-0.12)
[2017-02-25 18:01] VITALS: BP 129/78; PULSE 71; RESP 18
== END 2017-02-25 18:12 | disposition home or self-care (01) ==
LOC: E/R 10:28
DX: R07.2 Precordial pain (principal); J90 Pleural effusion, not elsewhere classified; R07.9 Chest pain, unspecified; Z85.3 Personal history of malignant neoplasm of breast
CPT/HCPCS: 36415; 71010; 71275; 80048; 82550; 82553; 84484; 85025; 85378; 85610; 85730; 93005; Q9967; Z7502; Z7610

== ENCOUNTER 2017-02-26 09:10 | Emergency (ER) | payer OTHER ==
[~2017-02-26] VITALS: Ht 160 cm; Wt 57.0 kg
[~2017-02-26 09:10] MED LIST changes: +CAPE500T13 ORAL
[2017-02-26 09:13] VITALS: Ht 160 cm; Wt 57.0 kg
[2017-02-26] MEDS ORDERED: LIDOCAINE 1% (MPF) 5 ML VIAL ONE (11:41)
--- NOTE | 2017-02-26 11:56 | RADRPT ---
PROCEDURE: US guided left thoracentesis. CLINICAL INDICATION: Shortness of breath. Left pleural effusion. TECHNIQUE: Prior to the procedure, informed consent was obtained. The risks, benefits, and alternatives were e xplained to the patient or the patient's family, including but not limited to bleeding, infection, p ain, visceral or vascular damage, shock, pneumothorax, chest tube placement, air embolism, and . The patient or the patient's family understood the risks and the alternatives and wished to proce ed with the study. Informed written consent was obtained. A procedural pause was performed. The patient's name, date of , and procedure to be performed were verified. Ultrasound of the left hemithorax was performed in the axial and sagittal planes. A left pleural eff usion is noted. Utilizing ultrasound guidance, optimal location for entry to the pleural cavity was ascertained. The overlying skin was prepped and draped in the usual sterile fashion. Approximately 10 ml of 1% Xylocaine was injected locally for pain control. Using ultrasound guidance, a 5-Romanian Yueh catheter was introduced into the left pleural space without difficulty. Fluid was aspirated. COMPARISON: None. FINDINGS: Initial ultrasound demonstrates fluid in the left pleural space. Approximately 0.930 liters of sero us fluid was aspirated and sent with the patient to the emergency department. IMPRESSION: 1. Satisfactory ultrasound-guided left thoracentesis. RPTAT: QQ .Lawrence Reynoso MD, MD Date Time Electronically viewed and signed by .Lawrence Reynoso MD, on 02/26/2017 11:56 .R/
--- NOTE | 2017-02-26 12:13 | RADRPT ---
PROCEDURE: XR Chest. CLINICAL INDICATION: Status post thoracentesis TECHNIQUE: Single portable view of the chest was obtained COMPARISON: 02/25/2017 FINDINGS: There is decreased left pleural effusion.. The heart, lungs and mediastinum are otherwise unchanged. There is no evidence of pneumothorax status post thoracentesis. There is a small residual left pleu ral effusion. There is a moderate right pleural effusion. There is a right chest wall port in plac e. The heart is normal in size. RPTAT:AA IMPRESSION: Decreased left pleural effusion. No pneumothorax status post thoracentesis. .Javier Real MD, MD Date Time Electronically viewed and signed by .Javier Real MD, on 02/26/2017 12:13 .S/
[2017-02-26 12:40] VITALS: BP 138/68; PULSE 92; RESP 18; TEMP 98.5
--- NOTE | 2017-02-26 13:16 | ERD ---
ER Documentation Chief Complaint Date/Time DATE: 02/26/17 TIME: 13:13 Chief Complaint SEEN YESTERDAY DISCHARGED TOLD TO COME BACK TODAY FOR FLUID REMOVAL HPI Patient is a 51-year-old female with breast cancer presents with shortness of breath. She was seen yesterday for chest pain shortness of breath and was told to return for a thoracentesis. The thoracentesis could not be performed yesterday because of the radiology availability. The patient does receive chemotherapy. She is speaking in full sentences and has no trouble with ambulation. ROS All systems reviewed and are negative except as per history of present illness. Medications Home Meds Reported Medications Capecitabine (Capecitabine) 500 Mg Tablet, 500 MG ORAL BID, #56 02/25/17 Discontinued Scripts Promethazine HCl/Codeine (Prometh-Codein 6.25-10 mg/5 ml) 5 Ml Syrup, 5 ML PO Q6 , #4 OZ Prov:STEVO MAXWELL PA-C 01/13/17 Azithromycin* (Zithromax*) 250 Mg Tablet, 250 MG PO .BereketPACK DIRECTED, #6 TAB TAKE 500 MG (2 TABS) THE FIRST DAY THEN 250 MG (1 TAB) DAYS 2-5 Prov:STEVO MAXWELL PA-C 01/13/17 Albuterol Sulfate* (Proair HFA*) 8.5 Gm Hfa.aer.ad, 2 PUFF INH Q4, #1 INHALER Prov:JENNY MEZA PA-C 10/15/16 Tramadol HCl (Tramadol HCl) 50 Mg Tablet, 50 MG PO Q6 Y for PAIN, #20 TAB Prov:COLT CANTU NP 10/03/16 Ibuprofen* (Motrin*) 600 Mg Tab, 600 MG PO Q6H Y for PAIN AND OR ELEVATED TEMP, #30 TAB Prov:COLT CANTU NP 10/03/16 Furosemide* (Lasix*) 40 Mg Tablet, 40 MG PO DAILY, #20 TAB Prov:SOY KC MD 12/21/15 Sennosides/Docusate Sodium* (Senna-S*) 1 Tab Tablet, 2 TAB PO DAILY for 30 Days , TAB Prov:POLO ALEXANDER 10/19/15 Potassium Chloride* (Potassium Chloride*) 8 Meq Capsule.er, 8 MEQ PO DAILY for 30 Days, CAP Prov:BRITANY MEJIAS MD 10/17/15 Allergies Allergies: Coded Allergies: No Known Allergy (Verified , 02/26/17) PMhx/Soc History of Surgery: Yes (LEFT MASTECTOMY) Anesthesia Reaction: No Hx Neurological Disorder: No Hx Respiratory Disorders: No Hx Cardiac Disorders: No Hx Psychiatric Problems: No Hx Miscellaneous Medical Probl: Yes (BREAST CANCER) Hx Alcohol Use: No Hx Substance Use: No Hx Tobacco Use: No Smoking Status: Current every day smoker FmHx Family History: No diabetes Physical Exam Vitals Vital Signs Date Time Temp Pulse Resp B/P Pulse Ox O2 Delivery O2 Flow Rate FiO2 02/26/17 12:40 98.5 92 18 138/68 98 Room Air 02/26/17 09:13 97.8 110 20 122/74 94 Physical Exam Const: No acute distress Head: Atraumatic Eyes: Normal Conjunctiva ENT: Normal External Ears, Nose and Mouth. Neck: Full range of motion..~ No meningismus. Resp: Decreased breath sounds bilaterally Cardio: Regular rate and rhythm, no murmurs Abd: Soft, non tender, non distended. Normal bowel sounds Skin: No petechiae or rashes Back: No midline or flank tenderness Ext: No cyanosis, or edema Neur: Awake and alert Psych: Normal Mood and Affect Results 24 hrs Current Medications Medications (Trade) Dose Ordered Sig/Katerin Route PRN Reason Start Time Stop Time Status Last Admin Dose Admin Lidocaine (Xylocaine 1% (Mpf)) 5 ml STK-MED ONCE .ROUTE 02/26/17 11:41 02/26/17 11:42 DC 02/26/17 11:50 Procedures/MDM Patient is a 51-year-old female with breast cancer presents for thoracentesis. She had an ultrasound-guided thoracentesis done by radiology. She feels better. At this point believe outpatient management is appropriate. I doubt pneumonia, pneumothorax, pulmonary embolism, or acute coronary syndrome. I believe outpatient management is appropriate but the patient will need close follow-up with her primary doctor within 24-48 hours. She can return sooner for any worsening symptoms. Departure Diagnosis: Primary Impression: Pleural effusion Additional Impression: Shortness of breath Condition: Fair Patient Instructions: Pleural Effusion Referrals: Your doctor Additional Instructions: Llame al doctor LULU y kathi alexey JOANIE PARA DENTRO DE 1-2 ABRAMS.Dgale a la secretaria que nosotros le instruimos hacer esta joanie.Avise o llame si isaac condicin se empeora antes de la joanie. Regresa aqui si peor o no mejor. SOY KC MD February 26, 2017 13:16
== END 2017-02-26 12:45 | disposition home or self-care (01) ==
LOC: E/R 09:10
DX: J90 Pleural effusion, not elsewhere classified (principal); R40.2252 Coma scale, best verbal response, oriented, at arrival to emergency department; F17.210 Nicotine dependence, cigarettes, uncomplicated; R40.2142 Coma scale, eyes open, spontaneous, at arrival to emergency department; R40.2362 Coma scale, best motor response, obeys commands, at arrival to emergency department; Z85.3 Personal history of malignant neoplasm of breast
CPT/HCPCS: 32555; 71010; Z7502; Z7610

== ENCOUNTER 2017-03-13 10:45 | Inpatient (IN) | payer OTHER ==
[~2017-03-13] VITALS: Ht 147.3 cm; Wt 55.6 kg
[~2017-03-13 10:45] MED LIST changes: -ALBU8.5H3 INH; -AZIT250T94 PO; -FURO-109 PO; -IBUP-1542 PO; -POTA8CAP PO; -PROM5SYR2 PO; -SENN-8 PO; -TRAM50TA2 PO
[2017-03-13] MEDS ORDERED: ONDANSETRON 4 MG INJ IV STA (10:58)
[2017-03-13] MEDS ORDERED: morphine 4 MG/ML VIAL IV STA (10:58)
--- NOTE | 2017-03-13 11:28 | ERA ---
ER Documentation Chief Complaint Date/Time DATE: 03/13/17 TIME: 11:25 Chief Complaint chest pain and difficulty breathing x 4 days HPI 51-year-old female history of breast cancer last chemotherapy approximately 20 days ago who presents with chest pain and difficulty breathing for 4 days. She has had a history of malignant pleural effusion requiring thoracentesis. The patient does describe mild pleuritic discomfort. She has left upper extremity swelling. She states remote history of DVT but no anticoagulants or IVC filter. No exertional symptoms. ROS All systems reviewed and are negative except as per history of present illness. Medications Home Meds Reported Medications Capecitabine (Capecitabine) 500 Mg Tablet, 500 MG ORAL BID, #56 02/25/17 Allergies Allergies: Coded Allergies: No Known Allergy (Verified , 02/26/17) PMhx/Soc History of Surgery: Yes (LEFT MASTECTOMY) Anesthesia Reaction: No Hx Neurological Disorder: No Hx Respiratory Disorders: No Hx Cardiac Disorders: No Hx Psychiatric Problems: No Hx Miscellaneous Medical Probl: Yes (BREAST CANCER) Hx Alcohol Use: No Hx Substance Use: No Hx Tobacco Use: No Smoking Status: Never smoker Physical Exam Vitals Vital Signs Date Time Temp Pulse Resp B/P Pulse Ox O2 Delivery O2 Flow Rate FiO2 03/13/17 13:17 85 20 111/87 99 Room Air 03/13/17 11:10 Nasal Cannula 2 03/13/17 10:47 98.2 89 18 117/74 97 Physical Exam General: Well developed, well nourished, no acute distress Head: Normocephalic, atraumatic. Eyes: Pupils equally reactive, EOM intact ENT: Moist mucous membranes Neck: Supple, no lymphadenopathy Respiratory: Lungs clear bilaterally, no distress Cardiovascular: RRR, no murmurs, rubs, or gallops Abdominal: Soft, non-tender, non-distended, no peritoneal signs : Deferred MSK: Left upper extremity edema, no unilateral swelling, 5/5 strength Neurologic: Alert and oriented, moving all extremities, normal speech, no focal weakness, no cerebellar signs Skin: No rash Psych: Normal mood Result Diagram: 03/13/17 1115 03/13/17 1115 Results 24 hrs Laboratory Tests Test 03/13/17 11:15 White Blood Count 9.410^3/ul Red Blood Count 4.1810^6/ul Hemoglobin 12.1g/dl Hematocrit 36.9% Mean Corpuscular Volume 88.3fl Mean Corpuscular Hemoglobin 28.9pg Mean Corpuscular Hemoglobin Concent 32.8g/dl Red Cell Distribution Width 18.5% Platelet Count 32731^3/UL Mean Platelet Volume 9.2fl Neutrophils % 76.4% Lymphocytes % 15.1% Monocytes % 7.3% Eosinophils % 0.4% Basophils % 0.4% Nucleated Red Blood Cells % 0.0/100WBC Neutrophils # 7.210^3/ul Lymphocytes # 1.410^3/ul Monocytes # 0.710^3/ul Eosinophils # 0.010^3/ul Basophils # 0.010^3/ul Nucleated Red Blood Cells # 0.010^3/ul Prothrombin Time 13.4Sec Prothrombin Time Ratio 1.0 INR International Normalized Ratio 1.02 Activated Partial Thromboplast Time 26.3Sec Sodium Level 140mmol/L Potassium Level 3.7mmol/L Chloride Level 101mmol/L Carbon Dioxide Level 27mmol/L Anion Gap 16 Blood Urea Nitrogen 9mg/dl Creatinine 0.59mg/dl Glucose Level 117mg/dl Calcium Level 9.0mg/dl Troponin I < 0.012ng/ml B-Type Natriuretic Peptide 100PG/ML Current Medications Medications (Trade) Dose Ordered Sig/Katerin Route PRN Reason Start Time Stop Time Status Last Admin Dose Admin Morphine Sulfate (morphine) 4 mg ONCE STAT IV 03/13/17 10:58 03/13/17 11:00 DC 03/13/17 11:21 Ondansetron HCl (Zofran Inj) 4 mg ONCE STAT IV 03/13/17 10:58 03/13/17 11:00 DC 03/13/17 11:21 IV Flush 10 ml 10 ml STK-MED ONCE .ROUTE 03/13/17 12:03 03/13/17 12:04 DC Sodium Chloride (NS) 100 ml @ ud STK-MED ONCE .ROUTE 03/13/17 12:03 03/13/17 12:04 DC Iodixanol (Visipaque Locm) 100 ml STK-MED ONCE .ROUTE 03/13/17 12:03 03/13/17 12:04 DC Iodixanol (Visipaque Locm) 50 ml STK-MED ONCE .ROUTE 03/13/17 12:03 03/13/17 12:04 DC Ondansetron HCl (Zofran Inj) 4 mg ER BRIDGE PRN IV NAUSEA AND/OR VOMITING 03/13/17 13:30 03/14/17 13:29 Acetaminophen (Tylenol Tab) 650 mg ER BRIDGE PRN PO MILD PAIN/FEVER 03/13/17 13:30 03/14/17 13:29 Procedures/MDM EKG, MONITORS, & DIAGNOSTIC IMAGING: EKG: I reviewed and interpreted a 12-lead EKG. Rhythm: Normal sinus rhythm Ectopy: None Intervals: No abnormalities ST segments: No elevations or depressions T waves: No contiguous inversions Chest x-ray: I reviewed and interpreted a 1 view of the chest Mediastinum: No enlargement Cardiac silhouette: No cardiomegaly Airspace: Bilateral effusions right greater than left Bones: No evidence of fracture CTA PE IMPRESSION: 1. No major pulmonary emboli. Opacification of the distal segmental/ subsegmental branches is not adequate for the evaluation. 2. Slightly increased right-sided moderate to large volume pleural effusion with near complete atelectasis of the right lower and middle lobes. 3. Slightly decreased moderate left pleural effusion with partial atelectasis of the left lower lobe. 4. Unchanged small lytic lesion in the T6 vertebral body. LAB INTERPRETATION: Negative troponin MEDICAL DECISION MAKING: The patient presents with chest pain. Broad differential including cardiac etiology such as acute coronary syndrome, pulmonary embolism given malignancy history or pleural effusion. Given that the patient is not anticoagulated she would benefit from CTPA. The patient will be given pain control medications. Low threshold for hospitalization. ER COURSE: I do not believe the chest pain is related to cardiac etiology. However, given the patient's age she is at slight risk for this. I believe this is more likely secondary to the patient's malignancy and likely right-sided pleural effusion. The patient is significant compressive atelectasis and would benefit from likely thoracentesis. Given the recurrent need for thoracentesis the patient may benefit from cardiothoracic surgery consultation for possible VATS or pleurodesis I kept the patient and/or family informed of laboratory and diagnostic imaging results throughout the emergency room course. DISPOSITION PLAN: Telemetry admission for management of malignant right-sided pleural effusion with compressive atelectasis CONSULTATION: Accepting care team and consultations: I discussed the current laboratory data, diagnostic imaging and emergency care provided. Admitting team: Dr. Mohit Admitting team indication: Insurance directed Departure Diagnosis: Primary Impression: Chest pain Qualified Code: R07.9 - Chest pain, unspecified type Additional Impressions: Pleural effusion Metastatic breast cancer Condition: Stable TUAN ALTAMIRANO MD March 13, 2017 11:28
[2017-03-13 11:31] LABS: ADD SCAN DIFF NO
[2017-03-13 11:34] LABS: BASOPHILS % 0.4 % (0.0-2.0); EOSINOPHILS % 0.4 % (0.0-7.0); HEMATOCRIT 36.9 % (37.0-47.0); HEMOGLOBIN 12.1 g/dl (12.0-16.0); LYMPHOCYTES # 1.4 10^3/ul (0.8-2.9); LYMPHOCYTES % 15.1 % (15.0-51.0); MEAN CORPUSCULAR HEMOGLOBIN 28.9 pg (29.0-33.0); MEAN CORPUSCULAR HGB CONC 32.8 g/dl (32.0-37.0); MEAN CORPUSCULAR VOLUME 88.3 fl (82.0-101.0); MEAN PLATELET VOLUME 9.2 fl (7.4-10.4); MONOCYTE # 0.7 10^3/ul (0.3-0.9); MONOCYTES % 7.3 % (0.0-11.0); NEUTROPHIL # 7.2 10^3/ul (1.6-7.5); NEUTROPHILS % 76.4 % (39.0-77.0); PLATELET COUNT 441 10^3/UL (140-415); RED BLOOD COUNT 4.18 10^6/ul (4.20-5.40); RED CELL DISTRIBUTION WIDTH 18.5 % (11.5-14.5); WHITE BLOOD COUNT 9.4 10^3/ul (4.8-10.8)
[2017-03-13 11:48] LABS: CHLORIDE 101 mmol/L (97-110); INR 1.02; PROTIME 13.4 Sec (12.2-14.2); SODIUM 140 mmol/L (135-144)
[2017-03-13 11:49] LABS: PARTIAL THROMBOPLASTIN TIME 26.3 Sec (25.0-35.0); POTASSIUM 3.7 mmol/L (3.5-5.1)
[2017-03-13 11:51] LABS: ANION GAP 16 (8-16); BLOOD UREA NITROGEN 9 mg/dl (7-20); CARBON DIOXIDE 27 mmol/L (21-31); CREATININE 0.59 mg/dl (0.44-1.00)
[2017-03-13 11:52] LABS: GLUCOSE 117 mg/dl (70-220)
[2017-03-13 12:00] LABS: B-TYPE NATRIURETIC PEPTIDE 100 PG/ML (0-125)
[2017-03-13] MEDS ORDERED: SOD CHLORIDE 0.9% 100 ML ONE (12:03)
[2017-03-13] MEDS ORDERED: IODIXANOL LOCM 100 ML BTL ONE (12:03)
[2017-03-13] MEDS ORDERED: IODIXANOL LOCM 50 ML BTL ONE (12:03)
[2017-03-13 12:04] LABS: TROPONIN-I < 0.012 ng/ml (0.00-0.12)
--- NOTE | 2017-03-13 12:04 | RADRPT ---
PROCEDURE: XR Chest. CLINICAL INDICATION: Chest pain TECHNIQUE: Anterior chest x-ray. COMPARISON: 12/18/2016 FINDINGS: Right-sided Port-A-Cath catheter demonstrates stable and satisfactory position. There is mild bibasilar compressive atelectasis, unchanged. There are small bilateral pleural effusions, unchanged. There is no evidence of pneumothorax. The cardiomediastinal silhouette is unremarkable. The soft tissues are normal. Osseous structures are unremarkable. IMPRESSION: 1. Small bilateral pleural effusions with mild bibasilar compressive atelectasis, unchanged. 2. Port-A-Cath catheter with stable and satisfactory position. RPTAT: QQ .Earl Fish MD, Date Time Electronically viewed and signed by .Earl Fish MD, on 03/13/2017 12:04 .Surya/
--- NOTE | 2017-03-13 12:53 | RADRPT ---
PROCEDURE: CTA Chest and pulmonary angiogram. CLINICAL INDICATION: Chest pain and shortness of breath. History of breast cancer. TECHNIQUE: CT scan of the chest and CT pulmonary angiogram was performed on a multidetector high-r [employer] CT scanner. High-resolution thin slice coronal and sagittal imaging was obtained from the axial source images. 3-D volumetric rendered post processing was performed as well. The patient w as examined following the uncomplicated intravenous administration of 100 cc of Omnipaque-350. The images were reviewed on a PACS workstation. The total exam CTDI equals 28.17, and 7.78 and the total exam DLP equals 287.54 mGy-cm. One or more of the following dose reduction techniques were used: Automated exposure control. Adjustment of the mA and/or kV according to patient size. Use of iterative reconstruction technique. COMPARISON: CT chest 02/25/2017 FINDINGS: CT chest: There has been slight interval increase in moderate to large volume right pleural effusion and sligh tly decreased moderate left pleural effusions with associated lower lobe atelectasis. There is incr eased atelectasis of the right middle lobe. The mediastinum is unremarkable without evidence for mass or lymphadenopathy. Right IJ Port-A-Cath r emains in satisfactory position. Multiple surgical clips are seen in the left axilla. The vascular structures of the mediastinum are normal in course and caliber. The heart size is normal without pe ricardial thickening or effusion. The axillary, subpectoral, and supraclavicular regions are unrema rkable. Imaging obtained through the upper abdomen is equally unremarkable. The adrenal glands are symmetri brittany normal. The surrounding chest wall is unremarkable. Redemonstrated is a small lytic lesion i n the inferior aspect of the T6 vertebral body. CT pulmonary angiogram: No thrombus, clot, filling defect, or pulmonary web is identified. The pulmonary arteries are parish l in caliber and morphology. No filling defect is present to suggest pulmonary embolism. There is no evidence for pulmonary arterial hypertension. IMPRESSION: 1. No major pulmonary emboli. Opacification of the distal segmental/subsegmental branches is not a dequate for the evaluation. 2. Slightly increased right-sided moderate to large volume pleural effusion with near complete atel ectasis of the right lower and middle lobes. 3. Slightly decreased moderate left pleural effusion with partial atelectasis of the left lower lob e. 4. Unchanged small lytic lesion in the T6 vertebral body. RPTAT: BB .Arik Patten MD, Date Time Electronically viewed and signed by .Arik Patten MD, on 03/13/2017 12:53 .O/
[2017-03-13] MEDS ORDERED: ACETAMINOPHEN 325 MG TAB PO PRN ×2 (13:30→15:30)
[2017-03-13] MEDS ORDERED: ONDANSETRON 4 MG INJ IV PRN ×2 (13:30→15:30)
[2017-03-13] MEDS ORDERED: MAGNESIUM HYDROXIDE 30ML CUP PO PRN (15:30)
[2017-03-13] MEDS ORDERED: NA PHOSPHATE/BIPHOS 133 ML ENEMA PR PRN (15:30)
[2017-03-13] MEDS ORDERED: VANCOMYCIN IV PER PHARMACY XX SCH (15:30)
[2017-03-13] MEDS ORDERED: NACL 0.9% 3 ML SYG IV SCH (15:30)
[2017-03-13] MEDS ORDERED: ALBUTEROL/IPRATROPIUM (NEB) 3 ML AMP HHN PRN (15:30)
[2017-03-13] MEDS ORDERED: LORAZEPAM 2 MG INJ IV PRN (15:30)
[2017-03-13] MEDS ORDERED: DOCUSATE SODIUM 100 MG CAP PO PRN (15:30)
[2017-03-13] MEDS ORDERED: hydrALAzine 20 MG INJ IV PRN (15:30)
[2017-03-13] MEDS ORDERED: NITROGLYCERIN (SL) 0.4 MG TAB SL PRN (15:30)
[2017-03-13] MEDS ORDERED: HYDROCODONE/APAP (5/325) TAB PO PRN (15:30)
[2017-03-13] MEDS ORDERED: VANCOMYCIN 1.25 GM in SOD CHLORIDE 0.9% 250 ML IVPB SCH (16:30)
[2017-03-13 16:31] LABS: CREATINE KINASE 41 IU/L (23-200)
[2017-03-13] MEDS ORDERED: LIDOCAINE 1% (MPF) 5 ML VIAL ONE (16:32)
--- NOTE | 2017-03-13 16:37 | HP ---
DATE OF ADMISSION: 03/13/2017 CHIEF COMPLAINT: Chest pain and shortness of breath. HISTORY OF PRESENT ILLNESS: A 51-year-old female with past medical history of breast cancer status post chemotherapy 20 days ago who has been having chest pain and shortness of breath for the last 4 days. Apparently she has had a history of malignant pleural effusion requiring thoracentesis in the past. She had some subjective fevers and chills as well and also some mild pleuritic discomfort. No upper or lower GI bleeding. No nausea, no vomiting, no changes in her bowel movements. When she came in today, she had imaging studies performed including a chest x-ray and a CT of the chest whic h showed slightly increased right-sided moderate to large volume pleural effusion with near complete atelectasis at the right lower and middle lobes, slightly decreased moderate left pleural effusion with partial atelectasis at the left lower lobe. Apparently her cancer doctor as an outpatient is Randy Astorga. PAST MEDICAL HISTORY: As stated above. ALLERGIES: NO KNOWN DRUG ALLERGIES. MEDICATIONS AT HOME: Capecitabine 500 mg b.i.d., chemotherapy medication. PAST SURGICAL HISTORY: She has had a left mastectomy in the past. SOCIAL HISTORY: Negative for smoking, drinking, or IV drug abuse. FAMILY HISTORY: Noncontributory. PHYSICAL EXAMINATION: VITAL SIGNS: T-max 98.2, pulse 85 to 89, respirations 18 to 20, blood pressure is 111/87, saturatin g at 97% on 2 liters nasal cannula. GENERAL: The patient is lying in bed, answering questions appropriately. No acute distress. HEENT: Pupils equal, round, react to light. Extraocular muscles are intact. NECK: Supple, no thyromegaly. LUNGS: Slightly decreased breath sounds bilaterally, no wheezes. CARDIOVASCULAR: S1, S2 heard. No rubs or gallops. ABDOMEN: Soft, nontender, nondistended. Normal bowel sounds. No rebound or guarding. MUSCULOSKELETAL: She has some mild left upper extremity swelling but otherwise no lower extremity e randy bilaterally. NEUROLOGIC: No focal deficits. LABORATORIES: CBC is normal. The basic metabolic panel is normal. Troponin is negative as well x1 . We mentioned CT chest findings above. ASSESSMENT AND PLAN: A 51-year-old female coming in with chest pain and shortness of breath symptom s, likely secondary to pleural effusion with a prior history of malignant pleural effusion, status p ost thoracentesis in the past. 1. Shortness of breath, chest pain. The patient is presently being ruled out for acute coronary sy ndrome, so we will admit to telemetry floor, check troponins q. 6 hours x3. First one has been nega tive. Consider aspirin, morphine, oxygen, and nitrates as well. More importantly, we will order fo r thoracentesis bilaterally and send the fluid for fluid studies as I suspect that is the most likel y source of the patient's shortness of breath and chest pain, especially given her history. We will also check TSH, A1c, lipid panel. We will get a hematology/oncology consult with Dr. Astorga. Billie parham is the patient's hematology/oncology doctor. 2. Gastrointestinal prophylaxis, PPI. 3. Deep venous thrombosis prophylaxis, heparin subcutaneously. 4. Consider PT consult as well. Dictated By: EMMANUEL QUEEN/TRAM Conf#: [id number] DID#: [id number]
[2017-03-13 16:46] LABS: CK-MB < 0.22 ng/ml (0.0-2.4); TROPONIN-I < 0.012 ng/ml (0.00-0.12)
--- NOTE | 2017-03-13 17:10 | RADRPT ---
PROCEDURE: US guided right thoracentesis. CLINICAL INDICATION: Shortness of breath. Right pleural effusion. TECHNIQUE: Prior to the procedure, informed consent was obtained. The risks, benefits, and alternatives were e xplained to the patient or the patient's family, including but not limited to bleeding, infection, p ain, visceral or vascular damage, shock, pneumothorax, chest tube placement, air embolism, and . The patient or the patient's family understood the risks and the alternatives and wished to proce ed with the study. Informed written consent was obtained. A procedural pause was performed. The patient's name, date of , and procedure to be performed were verified. Ultrasound of the right hemithorax was performed in the axial and sagittal planes. A right pleural e ffusion is noted. Utilizing ultrasound guidance, optimal location for entry to the pleural cavity wa s ascertained. The overlying skin was prepped and draped in the usual sterile fashion. Approximate ly 10 ml of 1% Xylocaine was injected locally for pain control. Using ultrasound guidance, a 5-Fren Yueh catheter was introduced into the right pleural space without difficulty. Fluid was aspirated . COMPARISON: None. FINDINGS: Initial ultrasound demonstrates fluid in the right pleural space. Approximately 1.475 liters of ser ous fluid was aspirated and sent to the laboratory. IMPRESSION: 1. Satisfactory ultrasound-guided right thoracentesis. RPTAT: QQ .Lawrence Reynoso MD, Date Time Electronically viewed and signed by .Lawrence Reynoso MD, on 03/13/2017 17:09 .R/
--- NOTE | 2017-03-13 17:32 | RADRPT ---
PROCEDURE: Chest Radiograph. CLINICAL INDICATION: Post thoracentesis TECHNIQUE: Single frontal chest radiograph. COMPARISON: Chest radiograph 03/13/2017 11:40 a.m. FINDINGS: A right chest wall port infusion catheter remains in place. Heart size is within normal limits. Th ere is decreased right pleural fluid and improved aeration of the right lung without evidence of pne umothorax post thoracentesis . There is a stable small to moderate left pleural effusion with adjac ent atelectasis. The bones are intact. IMPRESSION: 1. Decreased right pleural fluid and improved aeration of the right lung without evidence of pneumo thorax post thoracentesis. RPTAT: HJBF .Ranjeet Blakely MD, MD Date Time Electronically viewed and signed by .Ranjeet Blakely MD, on 03/13/2017 17:32 .B/
[2017-03-13 17:42] VITALS: Ht 147.3 cm; Wt 55.6 kg
[2017-03-13 18:00] VITALS: PULSE 86
[2017-03-13] MEDS: PIPER-TAZO 3.375 GM IV (PMX) 100 ML IVPB SCH ×2 (18:15→23:28)
[2017-03-13 18:48] LABS: FLUID GLUCOSE 34 mg/dl; FLUID TYPE PLEURAL FLUID
[2017-03-13 18:49] LABS: FLUID TOTAL PROTEIN 5.1 g/dl
[2017-03-13 19:58] VITALS: BP 112/68; RESP 18
[2017-03-13 20:01] LABS: FLUID APPEARANCE BLOODY; FLUID WBC'S 950 /cmm
[2017-03-13 20:02] LABS: FLUID RBC EST 1+
[2017-03-13 20:08] VITALS: PULSE 83
[2017-03-13] MEDS: HEPARIN 5,000 UNIT/0.5 ML VIAL SC SCH (21:27)
[2017-03-13 21:39] LABS: FLUID LYMPHOCYTES 23 %; FLUID MONOCYTES 26 %; FLUID NEUTROPHILS 3 %
[2017-03-13 23:55] LABS: CREATINE KINASE 44 IU/L (23-200)
[2017-03-14] VITALS (13 sets, daily range): BP systolic 91–120; BP diastolic 53–79; PULSE 89–102; RESP 18–20
[2017-03-14 00:08] LABS: CK-MB < 0.22 ng/ml (0.0-2.4); TROPONIN-I < 0.012 ng/ml (0.00-0.12)
[2017-03-14] MEDS: morphine 2 MG INJ IV PRN ×3 (02:04→21:42)
[2017-03-14] MEDS: VANCOMYCIN 750 MG in SOD CHLORIDE 0.9% 150 ML IVPB SCH ×2 (04:23→17:17)
[2017-03-14] MEDS: PANTOPRAZOLE (EC) 40 MG TAB PO SCH (06:24)
[2017-03-14] MEDS: PIPER-TAZO 3.375 GM IV (PMX) 100 ML IVPB SCH ×3 (06:24→17:17)
[2017-03-14 08:05] LABS: CHOL/HDL RATIO 3.7 RATIO
[2017-03-14 08:15] LABS: THYROID STIMULATING HORMONE 0.559 MIU/L (0.465-4.680)
[2017-03-14] MEDS: HEPARIN 5,000 UNIT/0.5 ML VIAL SC SCH ×2 (08:21→21:43)
[2017-03-14 08:59] LABS: ADD SCAN DIFF NO
[2017-03-14 09:02] LABS: BASOPHILS % 0.5 % (0.0-2.0); EOSINOPHILS # 0.1 10^3/ul (0.0-0.5); HEMATOCRIT 35.3 % (37.0-47.0); HEMOGLOBIN 11.7 g/dl (12.0-16.0); LYMPHOCYTES # 1.4 10^3/ul (0.8-2.9); LYMPHOCYTES % 16.2 % (15.0-51.0); MEAN CORPUSCULAR HEMOGLOBIN 29.4 pg (29.0-33.0); MEAN CORPUSCULAR HGB CONC 33.1 g/dl (32.0-37.0); MEAN CORPUSCULAR VOLUME 88.7 fl (82.0-101.0); MEAN PLATELET VOLUME 9.9 fl (7.4-10.4); MONOCYTE # 0.8 10^3/ul (0.3-0.9); MONOCYTES % 9.1 % (0.0-11.0); NEUTROPHIL # 6.3 10^3/ul (1.6-7.5); NEUTROPHILS % 72.9 % (39.0-77.0); PLATELET COUNT 419 10^3/UL (140-415); RED BLOOD COUNT 3.98 10^6/ul (4.20-5.40); RED CELL DISTRIBUTION WIDTH 18.1 % (11.5-14.5); WHITE BLOOD COUNT 8.6 10^3/ul (4.8-10.8)
[2017-03-14 09:04] LABS: POTASSIUM 3.8 mmol/L (3.5-5.1)
[2017-03-14 09:07] LABS: CREATININE 0.61 mg/dl (0.44-1.00)
[2017-03-14 09:08] LABS: CALCIUM 8.4 mg/dl (8.4-10.2); MAGNESIUM 2.2 mg/dl (1.7-2.5); PHOSPHORUS 3.8 mg/dl (2.5-4.9)
--- NOTE | 2017-03-14 12:01 | PN ---
Date/Time of Note Date/Time of Note DATE: 03/14/17 TIME: 11:56 Assessment/Plan VTE Prophylaxis VTE Prophylaxis Intervention: heparin Lines/Catheters IV [facility] Assessment/Plan Chief Complaint/Hosp Course ASSESSMENT AND PLAN: 51-year-old female coming in with chest pain and shortness of breath symptoms, likely secondary to pleural effusion with a prior history of malignant pleural effusion, status post thoracentesis in the past. 1. Shortness of breath, chest pain - s/p thoracentesis, less SOB now. has ruled out for acute coronary syndrome. - continue telemetry floor, f/u pleural fluid studies - f/u TSH, A1c, lipid panel, and hematology/oncology consult with Dr. Astorga. That is the patient's hematology/oncology doctor. 2. Gastrointestinal prophylaxis, PPI. 3. Deep venous thrombosis prophylaxis, heparin subcutaneously. 4. Consider PT consult as well. Problems: Subjective 24 Hr Interval Summary Free Text/Dictation Pt had thoracentesis performed yesterday. Less SOB now. Awaiting Heme/onc consult. Exam/Review of Systems Vital Signs Vitals Vital Signs Date Time Temp Pulse Resp B/P Pulse Ox O2 Delivery O2 Flow Rate FiO2 03/14/17 11:23 98.1 89 18 94/61 94 03/13/17 15:22 Room Air 03/13/17 11:10 2 Intake and Output 03/13/17 03/13/17 03/14/17 15:00 23:00 07:00 Intake Total 100 ml 750 ml Balance 100 ml 750 ml Exam GENERAL: The patient is lying in bed, answering questions appropriately. No acute distress. HEENT: Pupils equal, round, react to light. Extraocular muscles are intact. NECK: Supple, no thyromegaly. LUNGS: Slightly decreased breath sounds bilaterally, no wheezes. CARDIOVASCULAR: S1, S2 heard. No rubs or gallops. ABDOMEN: Soft, nontender, nondistended. Normal bowel sounds. No rebound or guarding. MUSCULOSKELETAL: She has some mild left upper extremity swelling but otherwise no lower extremity edema bilaterally. NEUROLOGIC: No focal deficits. Results Result Diagram: 03/14/17 0636 03/14/17 0636 Results 24 hrs Laboratory Tests Test 03/13/17 15:45 03/13/17 16:45 03/13/17 23:00 03/14/17 06:36 Creatine Kinase 41 44 Creatine Kinase Index 0.5 0.5 Creatinine Kinase MB (Mass) < 0.22 < 0.22 Troponin I < 0.012 < 0.012 Free Thyroxine 1.14 Body Fluid Type Body Fluid Volume 950.0 Body Fluid Color RED Body Fluid Appearance BLOODY Body Fluid WBC 950 Body Fluid RBC 1+ Body Fluid Neutrophils % 3 Body Fluid Lymphocytes (%) 23 Body Fluid Monocytes % 26 Body Fluid Other Cells (%) 48 Body Fluid Glucose 34 Body Fluid Total Protein 5.1 Body Fluid Lactate Dehydrogenase White Blood Count 8.6 Red Blood Count 3.98 L Hemoglobin 11.7 L Hematocrit 35.3 L Mean Corpuscular Volume 88.7 Mean Corpuscular Hemoglobin 29.4 Mean Corpuscular Hemoglobin Concent 33.1 Red Cell Distribution Width 18.1 H Platelet Count 419 H Mean Platelet Volume 9.9 Neutrophils % 72.9 Lymphocytes % 16.2 Monocytes % 9.1 Eosinophils % 1.0 Basophils % 0.5 Nucleated Red Blood Cells % 0.0 Neutrophils # 6.3 Lymphocytes # 1.4 Monocytes # 0.8 Eosinophils # 0.1 Basophils # 0.0 Nucleated Red Blood Cells # 0.0 Sodium Level 138 Potassium Level 3.8 Chloride Level 103 Carbon Dioxide Level 24 Anion Gap 15 Blood Urea Nitrogen 10 Creatinine 0.61 Glucose Level 96 Hemoglobin A1c 6.2 H Calcium Level 8.4 Phosphorus Level 3.8 Magnesium Level 2.2 Triglycerides Level 74 Cholesterol Level 166 LDL Cholesterol, Calculated 107 HDL Cholesterol 44 Cholesterol/HDL Ratio 3.7 Thyroid Stimulating Hormone (TSH) 0.559 Medications Medications Current Medications Ondansetron HCl (Zofran Inj) 4 mg Q6H PRN IV NAUSEA AND/OR VOMITING; Start at 15:30 Acetaminophen (Tylenol Tab) 650 mg Q6H PRN PO PAIN LEVEL 1-3 OR FEVER; Start at 15:30 Acetaminophen/ Hydrocodone Bitart ([place] (5/325)) 1 tab Q6H PRN PO MODERATE PAIN LEVEL 4-6; Start 03/13/17 at 15:30 Morphine Sulfate (morphine) 2 mg Q4H PRN IV SEVERE PAIN LEVEL 7-10 Last administered on 03/14/17 08:30; Admin Dose 2 MG; Start 03/13/17 at 15:30 Docusate Sodium (Colace) 100 mg Q12H PRN PO CONSTIPATION; Start 03/13/17 at 15: 30 Magnesium Hydroxide (Milk Of Mag) 30 ml DAILY PRN PO CONSTIPATION; Start at 15:30 Sodium Biphosphate/ Sodium Phosphate (Fleet Enema) 133 ml DAILY PRN [place] CONSTIPATION; Start 03/13/17 at 15:30 Pantoprazole (Protonix Tab) 40 mg DAILY@06 PO Last administered on 03/14/17 06 :24; Admin Dose 40 MG; Start 03/14/17 at 06:00 Heparin Sodium (Porcine) (Heparin (5000 Units/0.5 ml)) 5,000 unit Q12 SC Last administered on 03/14/17 08:21; Admin Dose 5,000 UNIT; Start 03/13/17 at 21:00 Lorazepam 0.5 mg 0.5 mg Q6H PRN IV ANXIETY; Start 03/13/17 at 15:30 Piperacillin Sod/ Tazobactam Sod (Zosyn 3.375gm/ 100 ml (Pmx)) 100 ml @ 200 mls /hr Q6 IVPB Last administered on 03/14/17 11:53; Admin Dose 200 MLS/HR; Start 03/13/17 at 18:00 Vancomycin HCl (Vanco Iv Per Pharmacy) VANCOMYCIN PER PHARMACY NOTE XX ; Start 03/13/17 at 15:30 Hydralazine HCl (Apresoline) 10 mg Q6H PRN IV ELEVATED BLOOD PRESSURE; Start at 15:30 Nitroglycerin 1 tab 1 tab Q5M PRN SL ANGINA; Start 03/13/17 at 15:30 Vancomycin HCl/ Sodium Chloride (Vancocin/NS) 150 ml @ 75 mls/hr Q12H IVPB Last administered on 03/14/17 04:23; Admin Dose 75 MLS/HR; Start 03/14/17 at 05 :00 EMMANUEL CHRISTIAN March 14, 2017 12:01
[2017-03-14] MEDS ORDERED: BARIUM SULF 2% 450 ML BTL (BERRY SMOOTHIE) PO ONE (15:30)
--- NOTE | 2017-03-14 15:34 | CONS ---
Date/Time of Note Date/Time of Note DATE: 03/14/17 TIME: 15:20 Assessment/Plan Assessment/Plan Chief Complaint/Hosp Course Ms. Tan is a 51-year-old female with metastatic ER/WI positive and HER-2 negative breast cancer, which is currently involving her bones, pleura and lymph nodes. The patient has per records progressed through Taxotere, Adriamycin, Cytoxan, Aromasin, Afinitor, and Gemzar. The patient is currently on Xeloda and Ixempra with stabilization of her CA 27-29. #Pleural Effusion -f/u pleural fluid cytology. I would like to confirm if the patient still has ER +/WI+/Her2 negative disease. I just spoke with pathology who does see suspicious cells concerning for malignant pleural effusion -agree with continuing Vancomycin and Zosyn in the case this is a parapneumonic effusion # Metastatic Breast cancer -pt appears to be progressing though Ixempra/ Xeloda -will order CT A/P to complete the restaging -also will order bone given her diffuse bone pain to re-valuate the extent of her bony disease -if she is confirmed to still have ER+/WI+ disease, I may consider switching her therapy to Ibrance/ Faslodex as an out patient -will need to continue our out patient bisphosphonate therapy # Dizziness and Blurry Vision -Brain MRI unremarkable Problems: Consultation Date/Type/Reason Admit Date/Time March 13, 2017 at 13:22 Date of Consultation: March 14, 2017 Type of Consultation: oncology Reason for Consultation ER+/WI+ Her 2 negative breast cancer Referring Provider: EMMANUEL CHRISTIAN of Present Illness Ms. Mitzi Tan is a very pleasant 51-year-old female who was first diagnosed with left-sided breast cancer in 2009 when she was diagnosed with T2, N2 stage IIIA left-sided breast cancer that is ER/WI positive and HER-2 negative. The patient went on to receive surgery followed by chemotherapy with Taxotere, Adriamycin, and Cytoxan followed by radiotherapy. The patient was then on tamoxifen, but after one year, she states she was switched to an aromatase inhibitor given that she was told the Tamoxifen was not working. In 2013, she recurred with metastatic disease to her chest, her lungs, and her bones. At that time, she was started on chemotherapy. Per Dr. Goldsteins records, the patient has since progressed through Aromasin, Afinitor, Taxotere, Cytoxan, and Gemzar. She is now on Ixempra 55 mg q. three weeks and Xeloda 1000 mg p.o. b.i.d. Last chemotherapy was given on 02/21/2017. She is due for her next dose on 03/21/2017. She is also receiving Zometa given that she has bone metastasis. The patient now presents with shortness of breath and chest pain. A CT of the chest was done which reveals slightly increased right-sided moderate to large volume pleural effusion with near complete atelectasis at the right lower and middle lobes, slightly decreased moderate left pleural effusion with partial atelectasis at the left lower lobe. Patient has since undergone a thoracentesis and states her shortness of breath has improved. She also c/o bilateral lower extremity pain. Constitutional: poor po Eyes: no complaints ENT: no complaints Respiratory: cough, pleuritic pain, shortness of breath Cardiovascular: chest pain Gastrointestinal: no complaints Genitourinary: no complaints Musculoskeletal: back pain, bone/joint pain Skin: no complaints Neurologic: no complaints Past Medical History breast surgery in 2009 Family History Significant Family History: no pertinent family hx Social History Alcohol Use: none Smoking Status: Never smoker Drug Use: none Exam/Review of Systems Vital Signs Vitals Vital Signs Date Time Temp Pulse Resp B/P Pulse Ox O2 Delivery O2 Flow Rate FiO2 03/14/17 12:00 90 03/14/17 11:23 98.1 18 94/61 94 03/13/17 15:22 Room Air 03/13/17 11:10 2 Intake and Output 03/13/17 03/13/17 03/14/17 15:00 23:00 07:00 Intake Total 100 ml 750 ml Balance 100 ml 750 ml Exam Constitutional: alert, oriented Psych: no complaints Head: atraumatic, normocephalic Eyes: nl conjunctiva ENMT: nl external ears & nose Neck: non-tender, supple Respiratory: diminished breath sounds Cardiovascular: nl pulses, regular rate and rhythm Gastrointestinal: soft Musculoskeletal: nl extremities to inspection, nl gait and stance Extremities: normal pulses Results Result Diagram: 03/14/17 0636 03/14/17 0636 Results 24 hrs Laboratory Tests Test 03/13/17 15:45 03/13/17 16:45 03/13/17 23:00 03/14/17 06:36 Creatine Kinase 41 44 Creatine Kinase Index 0.5 0.5 Creatinine Kinase MB (Mass) < 0.22 < 0.22 Troponin I < 0.012 < 0.012 Free Thyroxine 1.14 Body Fluid Type Body Fluid Volume 950.0 Body Fluid Color RED Body Fluid Appearance BLOODY Body Fluid WBC 950 Body Fluid RBC 1+ Body Fluid Neutrophils % 3 Body Fluid Lymphocytes (%) 23 Body Fluid Monocytes % 26 Body Fluid Other Cells (%) 48 Body Fluid Glucose 34 Body Fluid Total Protein 5.1 Body Fluid Lactate Dehydrogenase White Blood Count 8.6 Red Blood Count 3.98 L Hemoglobin 11.7 L Hematocrit 35.3 L Mean Corpuscular Volume 88.7 Mean Corpuscular Hemoglobin 29.4 Mean Corpuscular Hemoglobin Concent 33.1 Red Cell Distribution Width 18.1 H Platelet Count 419 H Mean Platelet Volume 9.9 Neutrophils % 72.9 Lymphocytes % 16.2 Monocytes % 9.1 Eosinophils % 1.0 Basophils % 0.5 Nucleated Red Blood Cells % 0.0 Neutrophils # 6.3 Lymphocytes # 1.4 Monocytes # 0.8 Eosinophils # 0.1 Basophils # 0.0 Nucleated Red Blood Cells # 0.0 Sodium Level 138 Potassium Level 3.8 Chloride Level 103 Carbon Dioxide Level 24 Anion Gap 15 Blood Urea Nitrogen 10 Creatinine 0.61 Glucose Level 96 Hemoglobin A1c 6.2 H Calcium Level 8.4 Phosphorus Level 3.8 Magnesium Level 2.2 Triglycerides Level 74 Cholesterol Level 166 LDL Cholesterol, Calculated 107 HDL Cholesterol 44 Cholesterol/HDL Ratio 3.7 Thyroid Stimulating Hormone (TSH) 0.559 Medications Medications Current Medications Ondansetron HCl (Zofran Inj) 4 mg Q6H PRN IV NAUSEA AND/OR VOMITING; Start at 15:30 Acetaminophen (Tylenol Tab) 650 mg Q6H PRN PO PAIN LEVEL 1-3 OR FEVER; Start at 15:30 Acetaminophen/ Hydrocodone Bitart ([place] (5/325)) 1 tab Q6H PRN PO MODERATE PAIN LEVEL 4-6; Start 03/13/17 at 15:30 Morphine Sulfate (morphine) 2 mg Q4H PRN IV SEVERE PAIN LEVEL 7-10 Last administered on 03/14/17t 08:30; Admin Dose 2 MG; Start 03/13/17 at 15:30 Docusate Sodium (Colace) 100 mg Q12H PRN PO CONSTIPATION; Start 03/13/17 at 15: 30 Magnesium Hydroxide (Milk Of Mag) 30 ml DAILY PRN PO CONSTIPATION; Start at 15:30 Sodium Biphosphate/ Sodium Phosphate (Fleet Enema) 133 ml DAILY PRN [place] CONSTIPATION; Start 03/13/17 at 15:30 Pantoprazole (Protonix Tab) 40 mg DAILY@06 PO Last administered on 03/14/17 06 :24; Admin Dose 40 MG; Start 03/14/17 at 06:00 Heparin Sodium (Porcine) (Heparin (5000 Units/0.5 ml)) 5,000 unit Q12 SC Last administered on 03/14/17 08:21; Admin Dose 5,000 UNIT; Start 03/13/17 at 21:00 Lorazepam 0.5 mg 0.5 mg Q6H PRN IV ANXIETY; Start 03/13/17 at 15:30 Piperacillin Sod/ Tazobactam Sod (Zosyn 3.375gm/ 100 ml (Pmx)) 100 ml @ 200 mls /hr Q6 IVPB Last administered on 03/14/17 11:53; Admin Dose 200 MLS/HR; Start 03/13/17 at 18:00 Vancomycin HCl (Vanco Iv Per Pharmacy) VANCOMYCIN PER PHARMACY NOTE XX ; Start 03/13/17 at 15:30 Hydralazine HCl (Apresoline) 10 mg Q6H PRN IV ELEVATED BLOOD PRESSURE; Start at 15:30 Nitroglycerin 1 tab 1 tab Q5M PRN SL ANGINA; Start 03/13/17 at 15:30 Vancomycin HCl/ Sodium Chloride (Vancocin/NS) 150 ml @ 75 mls/hr Q12H IVPB Last administered on 03/14/17 04:23; Admin Dose 75 MLS/HR; Start 03/14/17 at 05 :00 Miscellaneous Information (*Rx Drug Level Order Reminder*) 1 ONCE ONCE XX ; Start 03/15/17 at 04:00; Stop 03/15/17 at 04:01 ELIN GARCIA M.D. March 14, 2017 15:33
[2017-03-14 17:36] LABS: FLUID TYPE PLEURAL
--- NOTE | 2017-03-14 23:37 | RADRPT ---
PROCEDURE: MRI Brain without and with contrast. CLINICAL INDICATION: Altered mental status. Concern for intracranial metastatic disease. Abnorma l CT chest. TECHNIQUE: MRI of the brain was performed with the following sequences obtained: Sagittal, coronal and axial T1-weighted, axial T2-weighted, axial FLAIR, axial diffusion weighted (with ADC map), and coronal GRE. Following the uneventful intravenous injection of 10 cc Magnevist, postcontrast axial, sagittal and coronal T1 weighted sequences are performed COMPARISON: None available FINDINGS: The diffusion sequence is normal with no evidence for acute infarct. No hemorrhage, mass effect or mass lesion is present. The extraaxial spaces are clear of collections. The ventricular system and sulci are normal. No abnormal foci of enhancement are present No signal alteration is present within the brainstem or cerebellum. The fourth ventricle is midline and the craniocervical junction lesion is intact. The area of the sella is normal. No abnormal foc i of enhancement are present In the right parietal bone there is an enhancing lesion of approximately 3 x 0.6 cm. This finding m ay reflect an hemangioma but a metastatic focus is difficult to exclude. The remainder of the maricel rium and skull base appears intact. Mild mucosal thickening of the maxillary and ethmoid sinuses is present. The remaining paranasal sinuses and mastoid air cells are clear. Physiologic flow voids within the internal carotid and vertebral arteries are maintained. RPTAT:HJJR IMPRESSION: 1. Unremarkable MRI the brain without with contrast without evidence of intracranial metastases. 2. In the right parietal bone there is an enhancing lesion of approximately 3 x 0.6 cm which may re flect an incidental hemangioma but a solitary metastatic calvarial focus given the provided history is difficult to exclude. The patient may benefit from a total body bone scan Physician Ayah Date Time Electronically viewed and signed by Physician Ayah on 03/14/2017 23:37 /
[2017-03-15] VITALS (12 sets, daily range): BP systolic 106–121; BP diastolic 61–76; PULSE 72–116; RESP 18–20
[2017-03-15] MEDS: PIPER-TAZO 3.375 GM IV (PMX) 100 ML IVPB SCH ×5 (00:20→23:36)
[2017-03-15 03:53] LABS: ADD SCAN DIFF NO
[2017-03-15 04:13] LABS: POTASSIUM 3.8 mmol/L (3.5-5.1)
[2017-03-15 04:15] LABS: CREATININE 0.55 mg/dl (0.44-1.00)
[2017-03-15 04:16] LABS: CALCIUM 8.5 mg/dl (8.4-10.2)
[2017-03-15 04:28] LABS: BASOPHILS % 0.5 % (0.0-2.0); EOSINOPHILS # 0.1 10^3/ul (0.0-0.5); EOSINOPHILS % 1.2 % (0.0-7.0); HEMATOCRIT 34.6 % (37.0-47.0); HEMOGLOBIN 11.5 g/dl (12.0-16.0); LYMPHOCYTES # 1.5 10^3/ul (0.8-2.9); LYMPHOCYTES % 22.9 % (15.0-51.0); MEAN CORPUSCULAR HGB CONC 33.2 g/dl (32.0-37.0); MEAN CORPUSCULAR VOLUME 87.4 fl (82.0-101.0); MEAN PLATELET VOLUME 9.4 fl (7.4-10.4); MONOCYTE # 0.6 10^3/ul (0.3-0.9); MONOCYTES % 8.9 % (0.0-11.0); NEUTROPHIL # 4.4 10^3/ul (1.6-7.5); NEUTROPHILS % 65.7 % (39.0-77.0); PLATELET COUNT 391 10^3/UL (140-415); RED BLOOD COUNT 3.96 10^6/ul (4.20-5.40); RED CELL DISTRIBUTION WIDTH 17.6 % (11.5-14.5); WHITE BLOOD COUNT 6.6 10^3/ul (4.8-10.8)
[2017-03-15] MEDS: VANCOMYCIN 1 GM in NS 250 ML IVPB SCH ×2 (05:17→17:28)
[2017-03-15] MEDS: PANTOPRAZOLE (EC) 40 MG TAB PO SCH (06:46)
[2017-03-15] MEDS: HEPARIN 5,000 UNIT/0.5 ML VIAL SC SCH ×2 (08:26→20:00)
[2017-03-15] MEDS: morphine 2 MG INJ IV PRN ×2 (08:27→19:54)
--- NOTE | 2017-03-15 12:18 | PN ---
Date/Time of Note Date/Time of Note DATE: 03/15/17 TIME: 12:15 Assessment/Plan VTE Prophylaxis VTE Prophylaxis Intervention: heparin Lines/Catheters IV [facility]ter Type (from [facility]): [place] Assessment/Plan Chief Complaint/Hosp Course ASSESSMENT AND PLAN: 51-year-old female coming in with chest pain and shortness of breath symptoms, likely secondary to pleural effusion with a prior history of malignant pleural effusion, status post thoracentesis in the past. 1. Shortness of breath, chest pain - s/p thoracentesis, per Heme Onc, there is concern for possible malignant cells in this fluid. But Heme Onc would like to confirm if the patient still has ER+/AR+/Her2 negative disease. Pt has less SOB now. has ruled out for acute coronary syndrome. - continue telemetry floor, f/u pleural fluid studies and cytology - f/u CT A/P results - f/u hematology/oncology consult rec's. 2. Gastrointestinal prophylaxis, PPI. 3. Deep venous thrombosis prophylaxis, heparin subcutaneously. 4. Consider PT consult as well. Problems: Subjective 24 Hr Interval Summary Free Text/Dictation No present SOB. Awaiting CT C/A/P scan (pending). Exam/Review of Systems Vital Signs Vitals Vital Signs Date Time Temp Pulse Resp B/P Pulse Ox O2 Delivery O2 Flow Rate FiO2 03/15/17 12:05 93 03/15/17 11:43 98.0 18 106/64 98 03/13/17 15:22 Room Air 03/13/17 11:10 2 Intake and Output 03/14/17 03/14/17 03/15/17 15:00 23:00 07:00 Intake Total 600 ml Balance 600 ml Exam GENERAL: The patient is lying in bed, answering questions appropriately. No acute distress. HEENT: Pupils equal, round, react to light. Extraocular muscles are intact. NECK: Supple, no thyromegaly. LUNGS: Slightly decreased breath sounds bilaterally, no wheezes. CARDIOVASCULAR: S1, S2 heard. No rubs or gallops. ABDOMEN: Soft, nontender, nondistended. Normal bowel sounds. No rebound or guarding. MUSCULOSKELETAL: She has some mild left upper extremity swelling but otherwise no lower extremity edema bilaterally. NEUROLOGIC: No focal deficits. Results Result Diagram: 03/15/17 0345 03/15/17 0345 Results 24 hrs Laboratory Tests Test 03/14/17 23:43 03/15/17 03:45 Urine Test NEGATIVE White Blood Count 6.6 # Red Blood Count 3.96 L Hemoglobin 11.5 L Hematocrit 34.6 L Mean Corpuscular Volume 87.4 Mean Corpuscular Hemoglobin 29.0 Mean Corpuscular Hemoglobin Concent 33.2 Red Cell Distribution Width 17.6 H Platelet Count 391 Mean Platelet Volume 9.4 Neutrophils % 65.7 Lymphocytes % 22.9 Monocytes % 8.9 Eosinophils % 1.2 Basophils % 0.5 Nucleated Red Blood Cells % 0.0 Neutrophils # 4.4 Lymphocytes # 1.5 Monocytes # 0.6 Eosinophils # 0.1 Basophils # 0.0 Nucleated Red Blood Cells # 0.0 Sodium Level 140 Potassium Level 3.8 Chloride Level 105 Carbon Dioxide Level 25 Anion Gap 14 Blood Urea Nitrogen 8 Creatinine 0.55 Glucose Level 123 Calcium Level 8.5 Vancomycin Level Trough 8.2 L Medications Medications Current Medications Ondansetron HCl (Zofran Inj) 4 mg Q6H PRN IV NAUSEA AND/OR VOMITING; Start at 15:30 Acetaminophen (Tylenol Tab) 650 mg Q6H PRN PO PAIN LEVEL 1-3 OR FEVER; Start at 15:30 Acetaminophen/ Hydrocodone Bitart ([place] (5/325)) 1 tab Q6H PRN PO MODERATE PAIN LEVEL 4-6; Start 03/13/17 at 15:30 Morphine Sulfate (morphine) 2 mg Q4H PRN IV SEVERE PAIN LEVEL 7-10 Last administered on 03/15/17 08:27; Admin Dose 2 MG; Start 03/13/17 at 15:30 Docusate Sodium (Colace) 100 mg Q12H PRN PO CONSTIPATION; Start 03/13/17 at 15: 30 Magnesium Hydroxide (Milk Of Mag) 30 ml DAILY PRN PO CONSTIPATION; Start at 15:30 Sodium Biphosphate/ Sodium Phosphate (Fleet Enema) 133 ml DAILY PRN [place] CONSTIPATION; Start 03/13/17 at 15:30 Pantoprazole (Protonix Tab) 40 mg DAILY@06 PO Last administered on 03/15/17 06 :46; Admin Dose 40 MG; Start 03/14/17 at 06:00 Heparin Sodium (Porcine) (Heparin (5000 Units/0.5 ml)) 5,000 unit Q12 SC Last administered on 03/15/17 08:26; Admin Dose 5,000 UNIT; Start 03/13/17 at 21:00 Lorazepam 0.5 mg 0.5 mg Q6H PRN IV ANXIETY; Start 03/13/17 at 15:30 Piperacillin Sod/ Tazobactam Sod (Zosyn 3.375gm/ 100 ml (Pmx)) 100 ml @ 200 mls /hr Q6 IVPB Last administered on 03/15/17 11:36; Admin Dose 200 MLS/HR; Start 03/13/17 at 18:00 Vancomycin HCl (Vanco Iv Per Pharmacy) VANCOMYCIN PER PHARMACY NOTE XX ; Start 03/13/17 at 15:30 Hydralazine HCl (Apresoline) 10 mg Q6H PRN IV ELEVATED BLOOD PRESSURE; Start at 15:30 Nitroglycerin 1 tab 1 tab Q5M PRN SL ANGINA; Start 03/13/17 at 15:30 Vancomycin HCl (Vancocin) 250 ml @ 125 mls/hr Q12H IVPB Last administered on 05:17; Admin Dose 125 MLS/HR; Start 03/15/17 at 05:00 EMMANUEL CHRISTIAN March 15, 2017 12:18
[2017-03-15] MEDS ORDERED: IOHEXOL 300MG/ML 150 ML BTL ONE ×2 (15:00→15:19)
[2017-03-15] MEDS ORDERED: SOD CHLORIDE 0.9% 100 ML ONE ×2 (15:00→15:19)
--- NOTE | 2017-03-15 16:00 | RADRPT ---
PROCEDURE: CT scan of the abdomen and pelvis with and without IV contrast. CLINICAL INDICATION: 51-year-old female with suspected metastatic disease. TECHNIQUE: Thin section axial, coronal and sagittal images were performed through the abdomen and pelvis without contrast and then following the injection of 100 cc of Omnipaque-300. Low-dose protoc ol imaging was utilized. One or more of the following dose reduction techniques were used: - Automated exposure control. - Adjustment of the mA and/or kV according to patient size. Use of iterative reconstruction technique. Radiation Dose: CTDI: 6.5 and DLP: 353 COMPARISON: CT chest 03/13/2017 yoli FINDINGS: Lungs and pleural space: There are bilateral pleural effusions. The left pleural effusion is larger than the right. There are consolidative infiltrates in the medial aspect of the right middle lobe. There is plate-like atelectasis in the lingula. There is compressive atelectasis in the bases of the lungs with peribronchial thickening. Heart: Normal. No pericardial effusion is identified. The liver, common bile duct and gallbladder: The hepatic and portal veins are patent. No intrahepat ic biliary ductal dilatation is identified and no hepatic mass is present. The gallbladder and gall bladder wall are normal. Pancreas: The extrahepatic common bile duct and pancreas are normal. Gastrointestinal: There is no hiatal hernia. The stomach is incompletely distended and contains sma ll amounts of fluid. There is a tiny midline umbilical hernia. The small bowel loops have a normal caliber. Vermiform appendix is normal. There is fecal material in the rectal ampulla. The no tiara dence of diverticulosis or diverticulitis. Kidneys and bladder : Normal. Adrenal glands: Normal. Spleen: Normal. Lymph nodes: Normal. Reproductive system: Normal. Bony elements: A 1.8 cm osteolytic lesions noted in the medial right ilium. A 1.2 cm osteolytic lesi ons noted to the left of midline in the body of L5. A second osteolytic lesions noted toward midlin e in the dorsal body of L5 measuring 7.6 mm. A Schmorl's node impinges on the inferior plate of L4. Vasculature: There are vascular calcifications in the proximal left common iliac artery. No aneurys m or stenosis is identified. IMPRESSION: 1. There are bone metastasis at L1, L5, possibly S1 and in the medial right ilium. A bone scan is r ecommended as additional bone metastasis may be present at T12 and other lower thoracic vertebral. 2. Bilateral pleural effusions with compressive atelectasis in the right left lower lobes. 3. Extensive peribronchial thickening which is unchanged. Right middle lobe atelectasis. Bibasilar atelectasis. RPTAT:AAJJ Physician Jannette Date Time Electronically viewed and signed by Milton Milan Physician on 03/15/2017 16:00 SINDHU/
--- NOTE | 2017-03-15 16:42 | RADRPT ---
PROCEDURE: Whole body bone scan study CLINICAL INDICATION: 51 -year-old patient with breast cancer, for evaluation for skeletal metastas es. TECHNIQUE: Following the intravenous injection of 25.0 mCi of Tc-99m MDP, whole body anterior and posterior planar images were obtained along with spot views of the head, neck, chest, pelvis and fem ur bilaterally. COMPARISON: No prior bone scans are available for comparison. CT scan of the abdomen and pelvis da tereso March 15, 2017. FINDINGS: Slightly elongated area of increased activity is seen in the right anterior approximately 8th rib, w hich may be related to prior trauma. Focus of increased activity is seen in the right iliac bone, likely corresponding to 1.8 cm lytic le diya on the CT scan. No definite abnormal areas of increased activity are seen at the vertebral body of L5 corresponding to an additional lytic lesion on the CT scan. Questionable area of low level activity is seen in the right distal femur. No other definite abnormal areas of increased activity or asymmetries are visualized in the study an d distribution of radionuclide is homogeneous in the skull, spine, rib cages, sternum, pelvis and vi sualized portions of the upper and lower extremities. Of incidental note, there is no evidence of mass abnormalities of the kidneys. IMPRESSION: 1. Focus of increased tracer activity in the right iliac bone corresponding to a lucent bony lesion s on the CT scan dated March 15, 2017, worrisome for a skeletal metastases. 2. Focus of increased tracer activity in the right anterior approximately 8th rib possibly related to prior trauma; skeletal metastasis cannot be ruled out. 3. Questionable area of low level tracer activity in the right distal femur; please correlate furth er with x-ray to this could the bony lesion. 4. No other definite abnormal areas of increased tracer activity. RPTAT: HH .Anjelica Jung MD, MD Date Time Electronically viewed and signed by .Anjelcia Jung MD, on 03/15/2017 16:42 .L/
[2017-03-16] VITALS (12 sets, daily range): BP systolic 92–114; BP diastolic 56–74; PULSE 77–94; RESP 16–20
[2017-03-16] MEDS: VANCOMYCIN 1 GM in NS 250 ML IVPB SCH ×2 (04:26→16:31)
[2017-03-16] MEDS: morphine 2 MG INJ IV PRN ×3 (04:26→20:21)
[2017-03-16] MEDS: PANTOPRAZOLE (EC) 40 MG TAB PO SCH (06:32)
[2017-03-16] MEDS: PIPER-TAZO 3.375 GM IV (PMX) 100 ML IVPB SCH ×4 (06:32→23:01)
[2017-03-16] MEDS: HEPARIN 5,000 UNIT/0.5 ML VIAL SC SCH ×2 (09:00→20:26)
[2017-03-16 10:27] LABS: ADD SCAN DIFF NO
[2017-03-16 10:32] LABS: BASOPHILS % 0.4 % (0.0-2.0); EOSINOPHILS # 0.1 10^3/ul (0.0-0.5); EOSINOPHILS % 1.1 % (0.0-7.0); HEMATOCRIT 34.9 % (37.0-47.0); HEMOGLOBIN 11.6 g/dl (12.0-16.0); LYMPHOCYTES # 1.3 10^3/ul (0.8-2.9); LYMPHOCYTES % 17.6 % (15.0-51.0); MEAN CORPUSCULAR HEMOGLOBIN 29.2 pg (29.0-33.0); MEAN CORPUSCULAR HGB CONC 33.2 g/dl (32.0-37.0); MEAN CORPUSCULAR VOLUME 87.9 fl (82.0-101.0); MEAN PLATELET VOLUME 9.5 fl (7.4-10.4); MONOCYTE # 0.5 10^3/ul (0.3-0.9); MONOCYTES % 6.7 % (0.0-11.0); NEUTROPHIL # 5.4 10^3/ul (1.6-7.5); NEUTROPHILS % 73.2 % (39.0-77.0); PLATELET COUNT 386 10^3/UL (140-415); RED BLOOD COUNT 3.97 10^6/ul (4.20-5.40); RED CELL DISTRIBUTION WIDTH 17.3 % (11.5-14.5); WHITE BLOOD COUNT 7.3 10^3/ul (4.8-10.8)
[2017-03-16 10:49] LABS: POTASSIUM 3.5 mmol/L (3.5-5.1)
[2017-03-16 10:51] LABS: CREATININE 0.67 mg/dl (0.44-1.00)
[2017-03-16 10:52] LABS: CALCIUM 8.3 mg/dl (8.4-10.2)
--- NOTE | 2017-03-16 11:37 | PN ---
Date/Time of Note Date/Time of Note DATE: 03/16/17 TIME: 11:31 Assessment/Plan VTE Prophylaxis VTE Prophylaxis Intervention: heparin Lines/Catheters IV Catheter Type (from Rust): Saline Lock Assessment/Plan Chief Complaint/Hosp Course ASSESSMENT AND PLAN: 51-year-old female coming in with chest pain and shortness of breath symptoms, likely secondary to pleural effusion with a prior history of malignant pleural effusion, status post thoracentesis in the past. 1. Shortness of breath, chest pain - s/p thoracentesis, per Heme Onc, there is concern for possible malignant cells in this fluid. But Heme Onc would like to confirm if the patient still has ER+/UT+/Her2 negative disease. Pt has less SOB now. has ruled out for acute coronary syndrome. - continue telemetry floor, f/u pleural fluid studies and cytology - Need to discuss CT and bone scan results with Heme/Onc team (see results below) - f/u hematology/oncology consult rec's. 2. Gastrointestinal prophylaxis, PPI. 3. Deep venous thrombosis prophylaxis, heparin subcutaneously. Problems: Subjective 24 Hr Interval Summary Free Text/Dictation Pt had CT and bone scans performed yesterday. Exam/Review of Systems Vital Signs Vitals Vital Signs Date Time Temp Pulse Resp B/P Pulse Ox O2 Delivery O2 Flow Rate FiO2 03/16/17 11:00 98.2 87 20 92/56 94 03/13/17 15:22 Room Air 03/13/17 11:10 2 Intake and Output 03/15/17 03/15/17 03/16/17 15:00 23:00 07:00 Intake Total 100 ml Balance 100 ml Exam GENERAL: The patient is lying in bed, answering questions appropriately. No acute distress. HEENT: Pupils equal, round, react to light. Extraocular muscles are intact. NECK: Supple, no thyromegaly. LUNGS: Slightly decreased breath sounds bilaterally, no wheezes. CARDIOVASCULAR: S1, S2 heard. No rubs or gallops. ABDOMEN: Soft, nontender, nondistended. Normal bowel sounds. No rebound or guarding. MUSCULOSKELETAL: She has some mild left upper extremity swelling but otherwise no lower extremity edema bilaterally. NEUROLOGIC: No focal deficits. Results Result Diagram: 03/16/17 1015 03/16/17 1015 Results 24 hrs Laboratory Tests Test 03/16/17 10:15 White Blood Count 7.3 Red Blood Count 3.97 L Hemoglobin 11.6 L Hematocrit 34.9 L Mean Corpuscular Volume 87.9 Mean Corpuscular Hemoglobin 29.2 Mean Corpuscular Hemoglobin Concent 33.2 Red Cell Distribution Width 17.3 H Platelet Count 386 Mean Platelet Volume 9.5 Neutrophils % 73.2 Lymphocytes % 17.6 Monocytes % 6.7 Eosinophils % 1.1 Basophils % 0.4 Nucleated Red Blood Cells % 0.0 Neutrophils # 5.4 Lymphocytes # 1.3 Monocytes # 0.5 Eosinophils # 0.1 Basophils # 0.0 Nucleated Red Blood Cells # 0.0 Sodium Level 140 Potassium Level 3.5 Chloride Level 106 Carbon Dioxide Level 24 Anion Gap 14 Blood Urea Nitrogen 6 L Creatinine 0.67 Glucose Level 175 Calcium Level 8.3 L Medications Medications Current Medications Ondansetron HCl (Zofran Inj) 4 mg Q6H PRN IV NAUSEA AND/OR VOMITING; Start at 15:30 Acetaminophen (Tylenol Tab) 650 mg Q6H PRN PO PAIN LEVEL 1-3 OR FEVER; Start at 15:30 Acetaminophen/ Hydrocodone Bitart ([place] (5/325)) 1 tab Q6H PRN PO MODERATE PAIN LEVEL 4-6; Start 03/13/17 at 15:30 Morphine Sulfate (morphine) 2 mg Q4H PRN IV SEVERE PAIN LEVEL 7-10 Last administered on 03/16/17 08:56; Admin Dose 2 MG; Start 03/13/17 at 15:30 Docusate Sodium (Colace) 100 mg Q12H PRN PO CONSTIPATION; Start 03/13/17 at 15: 30 Magnesium Hydroxide (Milk Of Mag) 30 ml DAILY PRN PO CONSTIPATION; Start at 15:30 Sodium Biphosphate/ Sodium Phosphate (Fleet Enema) 133 ml DAILY PRN [place] CONSTIPATION; Start 03/13/17 at 15:30 Pantoprazole (Protonix Tab) 40 mg DAILY@06 PO Last administered on 03/16/17 06 :32; Admin Dose 40 MG; Start 03/14/17 at 06:00 Heparin Sodium (Porcine) (Heparin (5000 Units/0.5 ml)) 5,000 unit Q12 SC Last administered on 03/16/17 09:00; Admin Dose 5,000 UNIT; Start 03/13/17 at 21:00 Lorazepam 0.5 mg 0.5 mg Q6H PRN IV ANXIETY; Start 03/13/17 at 15:30 Piperacillin Sod/ Tazobactam Sod (Zosyn 3.375gm/ 100 ml (Pmx)) 100 ml @ 200 mls /hr Q6 IVPB Last administered on 03/16/17 06:32; Admin Dose 200 MLS/HR; Start 03/13/17 at 18:00 Vancomycin HCl (Vanco Iv Per Pharmacy) VANCOMYCIN PER PHARMACY NOTE XX ; Start 03/13/17 at 15:30 Hydralazine HCl (Apresoline) 10 mg Q6H PRN IV ELEVATED BLOOD PRESSURE; Start at 15:30 Nitroglycerin 1 tab 1 tab Q5M PRN SL ANGINA; Start 03/13/17 at 15:30 Vancomycin HCl (Vancocin) 250 ml @ 125 mls/hr Q12H IVPB Last administered on 04:26; Admin Dose 125 MLS/HR; Start 03/15/17 at 05:00 Procedures Procedures A. Bone scan: IMPRESSION: 1. Focus of increased tracer activity in the right iliac bone corresponding to a lucent bony lesions on the CT scan dated March 15, 2017, worrisome for a skeletal metastases. 2. Focus of increased tracer activity in the right anterior approximately 8th rib possibly related to prior trauma; skeletal metastasis cannot be ruled out. 3. Questionable area of low level tracer activity in the right distal femur; please correlate further with x-ray to this could the bony lesion. 4. No other definite abnormal areas of increased tracer activity. B. CT A/P: IMPRESSION: 1. There are bone metastasis at L1, L5, possibly S1 and in the medial right ilium. A bone scan is recommended as additional bone metastasis may be present at T12 and other lower thoracic vertebral. 2. Bilateral pleural effusions with compressive atelectasis in the right left lower lobes. 3. Extensive peribronchial thickening which is unchanged. Right middle lobe atelectasis. Bibasilar atelectasis. EMMANUEL CHRISTIAN March 16, 2017 11:37
--- NOTE | 2017-03-16 13:26 | CONS ---
Date/Time of Note Date/Time of Note DATE: 03/16/17 TIME: 13:24 Assessment/Plan Assessment/Plan Chief Complaint/Hosp Course Ms. Tan is a 51-year-old female with metastatic ER/AZ positive and HER-2 negative breast cancer, which is currently involving her bones, pleura and lymph nodes. The patient has per records progressed through Taxotere, Adriamycin, Cytoxan, Aromasin, Afinitor, and Gemzar. The patient is currently on Xeloda and Ixempra with stabilization of her CA 27-29. #Pleural Effusion -f/u pleural fluid cytology. I would like to confirm if the patient still has ER +/AZ+/Her2 negative disease.Per pathologist, there is suspicious cells concerning for malignant pleural effusion -agree with continuing Vancomycin and Zosyn in the case this is a parapneumonic effusion # Metastatic Breast cancer -pt appears to be progressing though Ixempra/ Xeloda -CT A/P and bone scan reveal evidence of bone mets but no evidence of disease in abdomen or pelvis -if she is confirmed to still have ER+/AZ+ disease on cytology from pleural fluid, I may consider switching her therapy to Ibrance/ Faslodex as an out patient -will need to continue our out patient bisphosphonate therapy # Dizziness and Blurry Vision -Brain MRI unremarkable ok for dc from hematology standpoint Problems: Consultation Date/Type/Reason Admit Date/Time March 13, 2017 at 13:22 Initial Consult Date 03/14/17 Type of Consultation: oncology Reason for Consultation metastatic breast cancer Referring Provider: EMMANUEL CHRISTIAN 24 HR Interval Summary Free Text/Dictation no acute overnight events Exam/Review of Systems Vital Signs Vitals Vital Signs Date Time Temp Pulse Resp B/P Pulse Ox O2 Delivery O2 Flow Rate FiO2 03/16/17 12:19 86 03/16/17 11:00 98.2 20 92/56 94 03/13/17 15:22 Room Air 03/13/17 11:10 2 Intake and Output 03/15/17 03/15/17 03/16/17 15:00 23:00 07:00 Intake Total 100 ml Balance 100 ml Exam Constitutional: alert, oriented Psych: nl mood/affect, no complaints Head: normocephalic Eyes: nl conjunctiva ENMT: nl external ears & nose Neck: non-tender, supple Respiratory: clear to auscultation, normal air movement Cardiovascular: regular rate and rhythm Gastrointestinal: soft Musculoskeletal: nl extremities to inspection, nl gait and stance Results Result Diagram: 03/16/17 1015 03/16/17 1015 Results 24 hrs Laboratory Tests Test 03/16/17 10:15 White Blood Count 7.3 Red Blood Count 3.97 L Hemoglobin 11.6 L Hematocrit 34.9 L Mean Corpuscular Volume 87.9 Mean Corpuscular Hemoglobin 29.2 Mean Corpuscular Hemoglobin Concent 33.2 Red Cell Distribution Width 17.3 H Platelet Count 386 Mean Platelet Volume 9.5 Neutrophils % 73.2 Lymphocytes % 17.6 Monocytes % 6.7 Eosinophils % 1.1 Basophils % 0.4 Nucleated Red Blood Cells % 0.0 Neutrophils # 5.4 Lymphocytes # 1.3 Monocytes # 0.5 Eosinophils # 0.1 Basophils # 0.0 Nucleated Red Blood Cells # 0.0 Sodium Level 140 Potassium Level 3.5 Chloride Level 106 Carbon Dioxide Level 24 Anion Gap 14 Blood Urea Nitrogen 6 L Creatinine 0.67 Glucose Level 175 Calcium Level 8.3 L Medications Medications Current Medications Ondansetron HCl (Zofran Inj) 4 mg Q6H PRN IV NAUSEA AND/OR VOMITING; Start at 15:30 Acetaminophen (Tylenol Tab) 650 mg Q6H PRN PO PAIN LEVEL 1-3 OR FEVER; Start at 15:30 Acetaminophen/ Hydrocodone Bitart ([place] (5/325)) 1 tab Q6H PRN PO MODERATE PAIN LEVEL 4-6; Start 03/13/17 at 15:30 Morphine Sulfate (morphine) 2 mg Q4H PRN IV SEVERE PAIN LEVEL 7-10 Last administered on 03/16/17 08:56; Admin Dose 2 MG; Start 03/13/17 at 15:30 Docusate Sodium (Colace) 100 mg Q12H PRN PO CONSTIPATION; Start 03/13/17 at 15: 30 Magnesium Hydroxide (Milk Of Mag) 30 ml DAILY PRN PO CONSTIPATION; Start at 15:30 Sodium Biphosphate/ Sodium Phosphate (Fleet Enema) 133 ml DAILY PRN [place] CONSTIPATION; Start 03/13/17 at 15:30 Pantoprazole (Protonix Tab) 40 mg DAILY@06 PO Last administered on 5/27/17at 06 :32; Admin Dose 40 MG; Start 03/14/17 at 06:00 Heparin Sodium (Porcine) (Heparin (5000 Units/0.5 ml)) 5,000 unit Q12 SC Last administered on 03/16/17 09:00; Admin Dose 5,000 UNIT; Start 03/13/17 at 21:00 Lorazepam 0.5 mg 0.5 mg Q6H PRN IV ANXIETY; Start 03/13/17 at 15:30 Piperacillin Sod/ Tazobactam Sod (Zosyn 3.375gm/ 100 ml (Pmx)) 100 ml @ 200 mls /hr Q6 IVPB Last administered on 03/16/17 13:08; Admin Dose 200 MLS/HR; Start 03/13/17 at 18:00 Vancomycin HCl (Vanco Iv Per Pharmacy) VANCOMYCIN PER PHARMACY NOTE XX ; Start 03/13/17 at 15:30 Hydralazine HCl (Apresoline) 10 mg Q6H PRN IV ELEVATED BLOOD PRESSURE; Start at 15:30 Nitroglycerin 1 tab 1 tab Q5M PRN SL ANGINA; Start 03/13/17 at 15:30 Vancomycin HCl (Vancocin) 250 ml @ 125 mls/hr Q12H IVPB Last administered on 04:26; Admin Dose 125 MLS/HR; Start 03/15/17 at 05:00 ELIN GARCIA M.D. March 16, 2017 13:26
[2017-03-17] VITALS (7 sets, daily range): BP systolic 94–105; BP diastolic 63–69; PULSE 75–84; RESP 20
[2017-03-17] MEDS: morphine 2 MG INJ IV PRN ×2 (02:14→08:18)
[2017-03-17 04:26] LABS: ADD SCAN DIFF NO
[2017-03-17 04:32] LABS: BASOPHIL # 0.1 10^3/ul (0.0-0.1); BASOPHILS % 0.6 % (0.0-2.0); EOSINOPHILS # 0.1 10^3/ul (0.0-0.5); EOSINOPHILS % 1.5 % (0.0-7.0); HEMATOCRIT 34.2 % (37.0-47.0); HEMOGLOBIN 11.5 g/dl (12.0-16.0); LYMPHOCYTES # 1.5 10^3/ul (0.8-2.9); LYMPHOCYTES % 18.8 % (15.0-51.0); MEAN CORPUSCULAR HEMOGLOBIN 29.1 pg (29.0-33.0); MEAN CORPUSCULAR HGB CONC 33.6 g/dl (32.0-37.0); MEAN CORPUSCULAR VOLUME 86.6 fl (82.0-101.0); MEAN PLATELET VOLUME 9.1 fl (7.4-10.4); MONOCYTE # 0.8 10^3/ul (0.3-0.9); MONOCYTES % 9.6 % (0.0-11.0); NEUTROPHIL # 5.4 10^3/ul (1.6-7.5); NEUTROPHILS % 68.6 % (39.0-77.0); PLATELET COUNT 374 10^3/UL (140-415); RED BLOOD COUNT 3.95 10^6/ul (4.20-5.40); RED CELL DISTRIBUTION WIDTH 17.1 % (11.5-14.5); WHITE BLOOD COUNT 7.9 10^3/ul (4.8-10.8)
[2017-03-17 05:00] LABS: CALCIUM 8.6 mg/dl (8.4-10.2); CREATININE 0.68 mg/dl (0.44-1.00); POTASSIUM 3.5 mmol/L (3.5-5.1)
[2017-03-17] MEDS: PANTOPRAZOLE (EC) 40 MG TAB PO SCH (05:18)
[2017-03-17] MEDS: PIPER-TAZO 3.375 GM IV (PMX) 100 ML IVPB SCH ×2 (05:20→12:00)
[2017-03-17] MEDS: VANCOMYCIN 1 GM in NS 250 ML IVPB SCH (05:46)
[2017-03-17] MEDS: HEPARIN 5,000 UNIT/0.5 ML VIAL SC SCH (08:21)
[2017-03-17] MEDS ORDERED: LEVO750T8 PO (10:58)
--- NOTE | 2017-03-17 10:58 | PDOCDIS ---
Discharge Instructions CONDITION Patient Condition: Stable HOME CARE INSTRUCTIONS: Special Diet: regular diet ACTIVITY: Activity Restrictions: Slowly Increase Activity FOLLOW UP/APPOINTMENTS Appointments Please see your doctor in the clinic in 1 week, and take your medications as prescribed. EMMANUEL CHRISTIAN March 17, 2017 10:58
[2017-03-17] MEDS ORDERED: ALBU8.5H3 INH (10:59)
--- NOTE | 2017-03-17 11:31 | DS ---
DATE OF ADMISSION: 03/13/2017 DATE OF DISCHARGE: 03/16/2017 HOSPITAL COURSE: This is a 51-year-old female originally admitted on 03/13/2017, being discharged h ome on 03/16/2007. The patient came in initially with shortness of breath and chest pain. She was admitted to telemetry floor. She was found initially with a pleural effusion. She has a prior hist ory of malignant pleural effusion in the past because of her diagnosis of breast cancer and had chem otherapy 20 days prior to admission. In any event, she was found with pleural effusion. She underw ent thoracentesis. The fluid studies were sent for further evaluation as well. She was seen by hem atology/oncology team as well who was concerned about another malignant pleural effusion. When they spoke with the pathologist, there were suspicious cells concerning for malignant pleural effusion f rom the fluid that was taken on this thoracentesis. We are still waiting for the final studies for that, but the patient was placed on broad-spectrum antibiotics in the event that this was a parapneu jennifer effusion. In any event, the patient tolerated the thoracentesis well. She had less shortness of breath and chest pain symptoms as well. She was able to ambulate and tolerate a p.o. diet. The re was a CT abdomen and pelvis and a bone scan performed that did reveal evidence of bone metastasis but no evidence of any disease in the abdomen or pelvis. Since the patient is hemodynamically stab le, her vital signs are stable, she is able to ambulate and tolerate a p.o. diet, after getting shahana kimble from the hematology/oncology team, she is cleared for discharge today in improved condition. She will need to take the following medications, however: 1. ProAir HFA 2 puffs inhaled q.4 hours p.r.n. 2. Levaquin 750 mg p.o. daily for 5 more days. 3. Capecitabine 500 mg b.i.d. She can follow up with hematology/oncology team in the clinic in the next 1 to 2 weeks as well. Of note, she had MRI of the brain that was performed that was unremarkable, although on the right parie kaylee bone area there was an enhancing lesion of approximately 3 x 0.6 cm which may reflect an inciden kaylee hemangioma, but a solitary metastatic calvarial focus given by the provided history is difficult to exclude. FINAL DIAGNOSES: 1. Chest pain, shortness of breath secondary to pleural effusion, status post thoracentesis, awaiti ng final results of the pleural fluid studies with concern for possible malignant pleural effusion. 2. History of metastatic breast cancer on prior treatment with Ixempra and Xeloda with prior histor y of metastatic ER/AL positive and HER2 negative breast cancer. Time spent discharging the patient, 45 minutes. Dictated By: EMMANUEL ARCEO Conf#: [id number] DID#: [id number]
[2017-03-19 03:06] LABS: BODY FLUID Pleural fluid
== END 2017-03-17 14:11 | disposition home or self-care (01) | DRG 181 ==
LOC: E/R 10:45 → TEL 13:22
PROVIDERS: ADMIT Internal Medicine; ATTEND Internal Medicine
PROC: 0W993ZZ Drainage of Right Pleural Cavity, Percutaneous Approach (ICD-10-PCS; principal; 2017-03-13)
DX: C78.2 Secondary malignant neoplasm of pleura (principal); C79.51 Secondary malignant neoplasm of bone; J91.0 Malignant pleural effusion; C78.00 Secondary malignant neoplasm of unspecified lung; C79.89 Secondary malignant neoplasm of other specified sites; R42 Dizziness and giddiness; H53.8 Other visual disturbances; Z17.0 Estrogen receptor positive status [ER+]; Z85.3 Personal history of malignant neoplasm of breast
CPT/HCPCS: 32555; 36415; 70552; 71010; 71275; 74177; 78306; 80048; 80061; 80202; 82042; 82550; 82553; 82945; 83036; 83615; 83735; 83880; 83986; 84100; 84157; 84439; 84443; 84484; 84703; 85025; 85610; 85730; 87070; 87102; 87116; 88104; 88305; 89050; 89060; 93005; 96374; 96375; 97161; A9503; J1644; J2270; J2405; J2543; J3370; J7050; Q9967

== ENCOUNTER 2017-04-03 16:35 | Inpatient (IN) | payer OTHER ==
[~2017-04-03] VITALS: Ht 121.9 cm; Wt 55.5 kg
[~2017-04-03 16:35] MED LIST changes: +ALBU8.5H3 INH; +LEVO750T8 PO
[2017-04-03] MEDS ORDERED: OXYC-481 PO (19:24)
[2017-04-03 19:46] LABS: ADD SCAN DIFF NO
[2017-04-03 19:48] LABS: BASOPHILS % 0.6 % (0.0-2.0); EOSINOPHILS # 0.3 10^3/ul (0.0-0.5); EOSINOPHILS % 4.7 % (0.0-7.0); HEMATOCRIT 37.9 % (37.0-47.0); HEMOGLOBIN 12.8 g/dl (12.0-16.0); LYMPHOCYTES # 1.6 10^3/ul (0.8-2.9); LYMPHOCYTES % 23.4 % (15.0-51.0); MEAN CORPUSCULAR HEMOGLOBIN 29.2 pg (29.0-33.0); MEAN CORPUSCULAR HGB CONC 33.8 g/dl (32.0-37.0); MEAN CORPUSCULAR VOLUME 86.5 fl (82.0-101.0); MEAN PLATELET VOLUME 9.8 fl (7.4-10.4); MONOCYTE # 0.5 10^3/ul (0.3-0.9); MONOCYTES % 7.8 % (0.0-11.0); NEUTROPHIL # 4.2 10^3/ul (1.6-7.5); NEUTROPHILS % 63.2 % (39.0-77.0); PLATELET COUNT 369 10^3/UL (140-415); RED BLOOD COUNT 4.38 10^6/ul (4.20-5.40); WHITE BLOOD COUNT 6.6 10^3/ul (4.8-10.8)
[2017-04-03 20:11] LABS: ALBUMIN 4.6 g/dl (3.3-4.9); ALBUMIN/GLOBULIN RATIO 1.43; BILIRUBIN,INDIRECT 0.1 mg/dl (0-1.1); BILIRUBIN,TOTAL 0.1 mg/dl (0.2-1.3); CALCIUM 9.5 mg/dl (8.4-10.2); CREATININE 0.59 mg/dl (0.44-1.00); INR 0.97; POTASSIUM 3.7 mmol/L (3.5-5.1); PROTIME 12.9 Sec (12.2-14.2); TOTAL PROTEIN 7.8 g/dl (6.1-8.1)
[2017-04-03 20:12] LABS: PARTIAL THROMBOPLASTIN TIME 27.1 Sec (25.0-35.0)
--- NOTE | 2017-04-03 21:26 | RADRPT ---
PROCEDURE: Portable chest x-ray. CLINICAL INDICATION: Chest pain. TECHNIQUE: Portable AP view of the chest. COMPARISON: 03/13/2017. FINDINGS: The catheter tip of a right chest wall port lies at the superior cavoatrial junction. Small to moder ate bilateral pleural effusions are stable on the right and slightly increased on the left. The car diac silhouette is obscured. There is no pneumothorax. IMPRESSION: 1. Small to moderate bilateral pleural effusions, stable on the right and slightly increased on the left. Underlying bibasilar atelectasis or pneumonia is not excluded. RPTAT: HTAR .Aaron Arias MD, MD Date Time Electronically viewed and signed by .Aaron Arias MD, on 04/03/2017 21:26 .R/
[2017-04-03] MEDS ORDERED: morphine 4 MG/ML VIAL IV STA (21:45)
--- NOTE | 2017-04-03 22:39 | ERA ---
ER Documentation Chief Complaint Date/Time DATE: 04/03/17 TIME: 19:10 Chief Complaint CHEST PAIN FOR 4 DAYS. NON PROVOKED NO DIAPHORESIS OR SOB NOTED. HPI 51-year-old female with a history of breast cancer and recurrent pleural effusions presents the ED complaining of four-day history of increasing shortness of breath, orthopnea, exertional dyspnea and generalized, sharp, nonradiating chest pain. Denies leg pain or swelling. No cough or hemoptysis. Denies abdominal pain, nausea or vomiting. No fevers or chills. She was admitted for similar symptoms 03/13/2017 at which time a thoracentesis was performed and CT pulmonary angiogram was unremarkable for pulmonary embolism. ROS All systems reviewed and are negative except as per history of present illness. Medications Home Meds Reported Medications Oxycodone Hcl* (IR) (Roxicodone*) 5 Mg Tab, 5 MG PO Q4H Y for PAIN, TAB 04/03/17 Discontinued Reported Medications Capecitabine (Capecitabine) 500 Mg Tablet, 500 MG ORAL BID, #56 02/25/17 Discontinued Scripts Albuterol Sulfate* (Proair HFA*) 8.5 Gm Hfa.aer.ad, 2 PUFF INH Q4H Y for WHEEZING AND SOB, #1 INHALER 1 Refill Prov:EMMANUEL CHRISTIAN S. 03/17/17 Levofloxacin* (Levofloxacin*) 750 Mg Tablet, 750 MG PO DAILY for 5 Days, TAB Prov:EMMANUEL CHRISTIAN S. 03/17/17 Allergies Allergies: Coded Allergies: No Known Allergy (Verified , 04/03/17) PMhx/Soc Reviewed in chart. As per HPI. History of Surgery: Yes (l. breast tumor removal, port a cath placed) Anesthesia Reaction: No Hx Neurological Disorder: No Hx Respiratory Disorders: Yes (.lg pleural effusion this admit, sob) Hx Cardiac Disorders: No Hx Psychiatric Problems: No Hx Miscellaneous Medical Probl: Yes (BREAST CA, CHEMOTHERAPY) Hx Alcohol Use: No Hx Substance Use: No Hx Tobacco Use: No Smoking Status: Never smoker FmHx Reviewed in chart. No stroke or cancer Physical Exam Vitals Vital Signs Date Time Temp Pulse Resp B/P Pulse Ox O2 Delivery O2 Flow Rate FiO2 04/03/17 22:20 98.0 80 22 129/95 97 Room Air 04/03/17 20:33 87 114/87 04/03/17 19:24 98.5 92 20 116/89 96 Room Air 04/03/17 16:42 98.6 101 20 111/72 96 Physical Exam Const: Alert, moderate distress. Head: Atraumatic Eyes: Normal Conjunctiva ENT: Normal External Ears, Nose and Mouth. Neck: Full range of motion. No JVD. Resp: Decreased breath sounds right greater than left base. Cardio: Regular rate and rhythm, no murmurs Abd: Soft, non tender, non distended. Normal bowel sounds Skin: No petechiae or rashes Back: No midline or flank tenderness Ext: No cyanosis, or edema no calf tenderness, swelling or erythema. Neur: Awake and alert Psych: Normal Mood and Affect Result Diagram: 04/03/17192304/03/171923 Results 24 hrs Laboratory Tests Test 04/03/17 19:24 White Blood Count 6.610^3/ul Red Blood Count 4.3810^6/ul Hemoglobin 12.8g/dl Hematocrit 37.9% Mean Corpuscular Volume 86.5fl Mean Corpuscular Hemoglobin 29.2pg Mean Corpuscular Hemoglobin Concent 33.8g/dl Red Cell Distribution Width 15.0% Platelet Count 88953^3/UL Mean Platelet Volume 9.8fl Neutrophils % 63.2% Lymphocytes % 23.4% Monocytes % 7.8% Eosinophils % 4.7% Basophils % 0.6% Nucleated Red Blood Cells % 0.0/100WBC Neutrophils # 4.210^3/ul Lymphocytes # 1.610^3/ul Monocytes # 0.510^3/ul Eosinophils # 0.310^3/ul Basophils # 0.010^3/ul Nucleated Red Blood Cells # 0.010^3/ul Prothrombin Time 12.9Sec Prothrombin Time Ratio 1.0 INR International Normalized Ratio 0.97 Activated Partial Thromboplast Time 27.1Sec Sodium Level 140mmol/L Potassium Level 3.7mmol/L Chloride Level 108mmol/L Carbon Dioxide Level 25mmol/L Anion Gap 11 Blood Urea Nitrogen 14mg/dl Creatinine 0.59mg/dl Glucose Level 119mg/dl Calcium Level 9.5mg/dl Total Bilirubin 0.1mg/dl Direct Bilirubin 0.00mg/dl Indirect Bilirubin 0.1mg/dl Aspartate Amino Transf (AST/SGOT) 35IU/L Alanine Aminotransferase (ALT/SGPT) 21IU/L Alkaline Phosphatase 62IU/L Total Protein 7.8g/dl Albumin 4.6g/dl Globulin 3.20g/dl Albumin/Globulin Ratio 1.43 Current Medications Medications (Trade) Dose Ordered Sig/Katerin Route PRN Reason Start Time Stop Time Status Last Admin Dose Admin Morphine Sulfate (morphine) 4 mg ONCE STAT IV 04/03/17 21:45 04/03/17 21:46 DC 04/03/17 21:51 PROCEDURE: Portable chest x-ray. CLINICAL INDICATION: Chest pain. TECHNIQUE: Portable AP view of the chest. COMPARISON: 03/13/2017. FINDINGS: The catheter tip of a right chest wall port lies at the superior cavoatrial junction. Small to moderate bilateral pleural effusions are stable on the right and slightly increased on the left. The cardiac silhouette is obscured. There is no pneumothorax. IMPRESSION: 1. Small to moderate bilateral pleural effusions, stable on the right and slightly increased on the left. Underlying bibasilar atelectasis or pneumonia is not excluded. RPTAT: HTAR .Aaron Arias MD, MD Date Time Electronically viewed and signed by .Aaron Arias MD, MD on 04/03/2017 21:26 .R/ ECG: Time:16:49. Sinus tachycardia. Ventricular rate 122. Right axis deviation. Nonspecific T-wave changes. No acute ST segment elevation or depression. No ectopy. EP interpretation: Abnormal ECG. Procedures/MDM DOCUMENTS REVIEWED: ED nurse, prior ED, prior records including most recent admission 03/13/2070 [facility] DECISION MAKIN-year-old female with a history of breast cancer and recurrent pleural effusions presents the ED complaining of four-day history of increasing shortness of breath, orthopnea, exertional dyspnea and generalized, sharp, nonradiating chest pain. Presentation consistent with recurrent pleural effusions. Atypical chest pain without ischemic EKG changes and acute coronary syndrome is unlikely. Considering her history of pulmonary embolism is considered however most recent CT pulmonary angiogram was unremarkable. Patient be admitted to [facility] for pain control, thoracentesis, further evaluation and management. Counseled patient regarding diagnosis, diagnostic results and plan for admission. CALLS/CONSULTS: Time 21:50, Dr. Conroy, Recommends admission to [facility]. PATIENT CARE TRANSITIONED: Time: 21:55, Dr. Conroy Critical Care Time: 35 minutes Treatments/Evaluations: Close monitoring and treatment of unstable vital signs, cardiorespiratory, and neurologic status, while maintaining tight balance of fluid, respiratory, and cardiac interventions. This time includes discussing the case with the patient and the patient's family. This time does not include all procedures stated elsewhere in this record. This time also includes reviewing old records, labs and radiological studies. This time includes examining and re-examining the patient. Additionally, this time also includes arranging care with admitting and consulting physicians. . Departure Diagnosis: Primary Impression: Chest pain Qualified Code: R07.9 - Chest pain, unspecified type Additional Impressions: Bilateral pleural effusion Breast cancer Qualified Code: C50.919 - Malignant neoplasm of female breast, unspecified laterality, unspecified site of breast TERENCE HCA MD Apr 03, 2017 22:39
[2017-04-03] MEDS ORDERED: NACL 0.9% 3 ML SYG IV SCH (23:00)
[2017-04-03] MEDS ORDERED: BISACODYL (EC) 5 MG TAB PO PRN (23:00)
[2017-04-03] MEDS ORDERED: DOCUSATE SODIUM 100 MG CAP PO PRN (23:00)
[2017-04-04] VITALS (10 sets, daily range): BP systolic 100–116; BP diastolic 71–80; PULSE 69–81; RESP 17–20; TEMP 97.8; Ht 121.9 cm; Wt 55.5 kg
--- NOTE | 2017-04-04 04:01 | HP ---
Date/Time of Note Date/Time of Note DATE: 04/04/17 TIME: 03:56 Assessment/Plan VTE Prophylaxis VTE Prophylaxis Intervention: LMWH Lines/Catheters IV C[facility]ter Type [facility]from [facility]): Saline Lock Assessment/Plan Chief Complaint/Hosp Course This is a 51-year-old female being admitted to the telemetry floor for: 1. Bilateral pleural effusions: Likely metastatic secondary to patient's history of breast cancer. At the current time will order ultrasound-guided thoracentesis to help alleviate the patient's symptoms. She had a thoracentesis done during her last admission for pleural effusion. Patient states that her pain typically occurs on inspiration and expiration. She also has reproducible chest pain to palpation at the middle chest. 2. shortness of breath, chest pain. The symptoms likely appear to be secondary to #1. However since she is in a hypercoagulable state at the current time will trend troponins 3. Consider CTA. She had a CTA of the chest from her last admission on 03/13 which was negative for PE, patient currently right now is satting 97% on room air and is not tachycardic. Will order d-dimer, though with her cancer history the test may not be accurate. Will consider CTA of the chest if d-dimer is elevated or if patient's symptoms do not resolve after the thoracentesis Or if her symptoms worsen or she becomes tachycardic or her saturations fall. #3 metastatic breast cancer: At the current time patient is going through treatments with her cancer doctor Dr. Astorga. Will consult hematology if indicated. #4 DVT and GI prophylaxis: Lovenox, Protonix. Further treatment strategy will be implemented as per the clinical course Problems: HPI/ROS Admit Date/Time Admit Date/Time Hx of Present Illness 51-year-old female with a history of breast cancer and recurrent pleural effusions presents the ED complaining of four-day history of increasing shortness of breath, orthopnea, exertional dyspnea and generalized, sharp, nonradiating chest pain. Denies leg pain or swelling. No cough or hemoptysis. Denies abdominal pain, nausea or vomiting. No fevers or chills. She was admitted for similar symptoms 03/13/2017 at which time a thoracentesis was performed and CT pulmonary angiogram was unremarkable for pulmonary embolism. On my exam patient is currently in no acute distress she is satting at 97% on room air. Allergies: NKDA Medications: See DEC ROS Const: As per HPI Eyes : No pain discharge or redness or change in visual acuity ENT: No pain, sore throat, congestion, congestion, dysphagia or discharge Respiratory: As per HPI Cardiovascular: As per HPI GI : no change in appetite, abdominal pain, nausea, vomiting, diarrhea, constipation, or change in the color his stool Genitourinary: No dysuria, hematuria, flank pain , discharge or CVA tenderness Musculoskeletal: No joint pain, back pain, neck pain, restricted range of motion in neck or joints Skin: No rash, bruising or hives Neuro: No headache, dizziness, syncope, seizure, focal weakness Endocrine: No polyuria, polydipsia, temperature intolerance Psych: No hallucination, depression, anxiety or suicidal ideation PMH/Family/Social Past Medical History metastatic ER/VA positive and HER-2 negative breast cancer status post chemo approx 6 weeks ago Past Surgical History Left breast mastectomy Family History Significant Family History: no pertinent family hx Social History Alcohol Use: none Smoking Status: Never smoker Drug Use: none Exam/Review of Systems Vital Signs Vitals Vital Signs Date Time Temp Pulse Resp B/P Pulse Ox O2 Delivery O2 Flow Rate FiO2 04/04/17 02:00 98.0 67 16 106/72 95 Room Air Exam Exam General: This is a pleasant 51-year-old female who is frail-appearing and in no acute distress HEENT: Atraumatic, normocephalic. The pupils are equal, round and reactive. Extraocular motor are intact Neck: Supple with full range of motion. No rigidity or meningismus Chest: Reproducible chest pain to palpation over the middle chest. Lungs: Decreased breath sounds bilaterally at the lung bases, crackles at the lower lung shepherd bilaterally Heart: Normal S1-S2, Regular rhythm and rate. Abdomen: Soft , nontender, nondistended , bowel sounds are present. No guarding no rebound tenderness , No masses or organomegaly. Extremities: Normal to inspection, no edema no cyanosis Neurologic: Normal mental status, speech normal, cranial nerves II through XII are intact, motor and sensory are intact, no focal weakness Additional Comments PROCEDURE: Portable chest x-ray. CLINICAL INDICATION: Chest pain. TECHNIQUE: Portable AP view of the chest. COMPARISON: 03/13/2017. FINDINGS: The catheter tip of a right chest wall port lies at the superior cavoatrial junction. Small to moderate bilateral pleural effusions are stable on the right and slightly increased on the left. The cardiac silhouette is obscured. There is no pneumothorax. IMPRESSION: 1. Small to moderate bilateral pleural effusions, stable on the right and slightly increased on the left. Underlying bibasilar atelectasis or pneumonia is not excluded. RPTAT: HTAR .Aaron Arias MD, MD Date Time Electronically viewed and signed by .Aaron Arias MD, MD on 04/03/2017 21:26 .R/ ECG: Time:16:49. Sinus tachycardia. Ventricular rate 122. Right axis deviation. Nonspecific T-wave changes. No acute ST segment elevation or depression. No ectopy. EP interpretation: Abnormal ECG. Labs Result Diagram: 04/03/17192304/03/171923 Medications Medications Current Medications Docusate Sodium (Colace) 100 mg Q12H PRN PO CONSTIPATION; Start 04/03/17 at 23: 00 Bisacodyl (Dulcolax) 5 mg DAILY PRN PO CONSTIPATION; Start 04/03/17 at 23:00 Pantoprazole (Protonix Iv) 40 mg DAILY@06 IV ; Start 04/04/17 at 06:00 Enoxaparin Sodium (Lovenox) 40 mg DAILY SC ; Start 04/04/17 at 09:00 CEZAR GOLDMAN Apr 04, 2017 04:01
[2017-04-04] MEDS ORDERED: PANTOPRAZOLE 40 MG INJ IV SCH (06:00)
[2017-04-04] MEDS ORDERED: morphine 2 MG INJ ONE (06:45)
[2017-04-04] MEDS: morphine 2 MG INJ IV PRN ×2 (06:48→21:16)
[2017-04-04 09:20] LABS: ADD SCAN DIFF NO
[2017-04-04 09:22] LABS: BASOPHILS % 0.6 % (0.0-2.0); EOSINOPHILS # 0.3 10^3/ul (0.0-0.5); EOSINOPHILS % 6.4 % (0.0-7.0); HEMATOCRIT 35.3 % (37.0-47.0); LYMPHOCYTES # 1.4 10^3/ul (0.8-2.9); LYMPHOCYTES % 27.5 % (15.0-51.0); MEAN CORPUSCULAR HEMOGLOBIN 29.6 pg (29.0-33.0); MEAN CORPUSCULAR VOLUME 86.9 fl (82.0-101.0); MEAN PLATELET VOLUME 9.7 fl (7.4-10.4); MONOCYTE # 0.5 10^3/ul (0.3-0.9); MONOCYTES % 9.8 % (0.0-11.0); NEUTROPHIL # 2.8 10^3/ul (1.6-7.5); NEUTROPHILS % 55.3 % (39.0-77.0); PLATELET COUNT 342 10^3/UL (140-415); RED BLOOD COUNT 4.06 10^6/ul (4.20-5.40); WHITE BLOOD COUNT 5.1 10^3/ul (4.8-10.8)
[2017-04-04 09:43] LABS: D-DIMER 767.3 ng/ml (<460)
[2017-04-04 09:44] LABS: ALBUMIN/GLOBULIN RATIO 1.6; BILIRUBIN,INDIRECT 0.3 mg/dl (0-1.1); BILIRUBIN,TOTAL 0.3 mg/dl (0.2-1.3); CREATININE 0.62 mg/dl (0.44-1.00); POTASSIUM 4.1 mmol/L (3.5-5.1); TOTAL PROTEIN 6.5 g/dl (6.1-8.1)
[2017-04-04] MEDS: ENOXAPARIN 40 MG/0.4 ML SYG SC SCH (09:58)
--- NOTE | 2017-04-04 12:23 | PN ---
Date/Time of Note Date/Time of Note DATE: 04/04/17 TIME: 12:19 Assessment/Plan VTE Prophylaxis VTE Prophylaxis Intervention: SCD's Lines/Catheters IV Catheter Type (from Nrs): Saline Lock Assessment/Plan Assessment/Plan 51 yo F with stage 4 breast ca with previous h/o malignant pleural effusion admitted for SOB, found to have pleural effusion .Suspect recurrence of malignant effusion PLAN -US guided thora today, sent for cell count/diff, LDH, total protein, cytology -obtain CT given elevated dimer though dimer more likely 2/2 her underlying malignancy briefly discussed etio of pt's effusion with pt. given that this is her second admission for this in 1 month, consider hospice eval, re examining goals of care. can also defer this to outpatient onc setting DVT prophx discharge likely tomorrow Subjective 24 Hr Interval Summary Free Text/Dictation Pt reports pain control ok this AM. Did not recall being told the cause of her previous pleural effusion Exam/Review of Systems Vital Signs Vitals Vital Signs Date Time Temp Pulse Resp B/P Pulse Ox O2 Delivery O2 Flow Rate FiO2 04/04/17 11:32 97.8 74 20 116/72 95 04/04/17 04:02 Room Air Exam nad, laying in bed no mrg abd soft no le edema resp nonlabored Results Result Diagram: 04/04/17 0900 04/04/17 0900 Results 24 hrs Laboratory Tests Test 04/03/17 19:24 04/04/17 09:00 White Blood Count 6.6 5.1 # Red Blood Count 4.38 4.06 L Hemoglobin 12.8 12.0 Hematocrit 37.9 35.3 L Mean Corpuscular Volume 86.5 86.9 Mean Corpuscular Hemoglobin 29.2 29.6 Mean Corpuscular Hemoglobin Concent 33.8 34.0 Red Cell Distribution Width 15.0 H 15.0 H Platelet Count 369 342 Mean Platelet Volume 9.8 9.7 Neutrophils % 63.2 55.3 Lymphocytes % 23.4 27.5 Monocytes % 7.8 9.8 Eosinophils % 4.7 6.4 Basophils % 0.6 0.6 Nucleated Red Blood Cells % 0.0 0.0 Neutrophils # 4.2 2.8 Lymphocytes # 1.6 1.4 Monocytes # 0.5 0.5 Eosinophils # 0.3 0.3 Basophils # 0.0 0.0 Nucleated Red Blood Cells # 0.0 0.0 Prothrombin Time 12.9 Prothrombin Time Ratio 1.0 INR International Normalized Ratio 0.97 Activated Partial Thromboplast Time 27.1 Sodium Level 140 141 Potassium Level 3.7 4.1 Chloride Level 108 109 Carbon Dioxide Level 25 25 Anion Gap 11 11 Blood Urea Nitrogen 14 12 Creatinine 0.59 0.62 Glucose Level 119 93 Calcium Level 9.5 9.0 Total Bilirubin 0.1 L 0.3 Direct Bilirubin 0.00 0.00 Indirect Bilirubin 0.1 0.3 Aspartate Amino Transf (AST/SGOT) 35 28 Alanine Aminotransferase (ALT/SGPT) 21 25 Alkaline Phosphatase 62 54 Total Protein 7.8 6.5 # Albumin 4.6 4.0 Globulin 3.20 2.50 Albumin/Globulin Ratio 1.43 1.60 D-Dimer 767.30 H D-Dimer Comment Troponin I < 0.012 Medications Medications Current Medications Docusate Sodium (Colace) 100 mg Q12H PRN PO CONSTIPATION; Start 04/03/17 at 23: 00 Bisacodyl (Dulcolax) 5 mg DAILY PRN PO CONSTIPATION; Start 04/03/17 at 23:00 Enoxaparin Sodium (Lovenox) 40 mg DAILY SC Last administered on 04/04/17 09:58 ; Admin Dose 40 MG; Start 04/04/17 at 09:00 Morphine Sulfate (morphine) 2 mg Q2H PRN IV PAIN Last administered on 06:48; Admin Dose 2 MG; Start 04/04/17 at 07:00 CHRISTEN GRANT MD Apr 04, 2017 12:23
[2017-04-04] MEDS ORDERED: oxyCODONE 5 MG TAB PO PRN (12:30)
[2017-04-04] MEDS ORDERED: SOD CHLORIDE 0.9% 100 ML ONE (15:55)
[2017-04-04] MEDS ORDERED: IODIXANOL LOCM 100 ML BTL ONE (15:55)
[2017-04-04] MEDS ORDERED: IODIXANOL LOCM 50 ML BTL ONE (15:55)
--- NOTE | 2017-04-04 16:31 | RADRPT ---
PROCEDURE: CTA Chest with contrast and with 3-D reconstructions CLINICAL INDICATION: SOB, +dimer, cancer. r/o PE TECHNIQUE: The study was performed utilizing multidetector CT scanner. Direct spiral axial section s were obtained from the thoracic inlet to the upper abdomen with the use of intravenous contrast ma terial. Sagittal, coronal and 3-D reformations were obtained. The images were reviewed on a PACS wor kstation. DLP 341.62 mGycm CTDIvol 14.08, 8.92 mGy COMPARISON: CTA chest from 03/13/2017 FINDINGS: There are no pulmonary emboli. There are large bilateral pleural effusions with compressive bilateral atelectasis. There is no pneu mothorax. There are small calcified granulomas in the left lung (series 3, image 92). Heart size is within normal limits. There is no pericardial fluid. The aorta is within normal limi ts. There are no enlarged axillary or mediastinal lymph nodes. Left hilar calcifications are noted which are likely the sequela of prior granulomatous disease. The visualized portions of the upper abdomen are unremarkable. There is a 2 cm lytic lesion in the right side of the sternum on series 3, image 44. Small lytic les ions are identified in multiple thoracic vertebra (series 3, images 51, 62 in the left pedicle, 70 i n the spinous process, 82, 86, 135, 154, 170, 196, and 235). Surgical changes are identified in the left axilla. A right-sided Port-A-Cath is noted. IMPRESSION: No CT evidence for pulmonary embolus. Large bilateral pleural effusions with compressive bilateral atelectasis. Multiple osteolytic lesions are identified in the visualized osseous structures. A bone scan can be obtained for further evaluation. Postsurgical changes in the left axilla, likely from axillary lymph node dissection. Right-sided Port-A-Cath. RPTAT: EE Physician Santa Date Time Electronically viewed and signed by Fernando Orourke Physician on 04/04/2017 16:31 /
[2017-04-04] MEDS ORDERED: LIDOCAINE 1% (MPF) 5 ML VIAL ONE (16:40)
--- NOTE | 2017-04-04 16:59 | RADRPT ---
PROCEDURE: XR Chest. CLINICAL INDICATION: Status post thoracentesis TECHNIQUE: Single portable view of the chest was obtained COMPARISON: 03/13/2017, 04/03/2017 FINDINGS: There is decreased left pleural effusion. The heart, lungs and mediastinum are otherwise unchanged. There is no evidence of pneumothorax status post thoracentesis. The heart is normal in size. There is a moderate right pleural effusion. There is a right chest wall port in place. RPTAT:AA IMPRESSION: Decreased left pleural effusion. No pneumothorax status post thoracentesis. .Javier Real MD, MD Date Time Electronically viewed and signed by .Javier Real MD, on 04/04/2017 16:58 .S/
--- NOTE | 2017-04-04 17:42 | RADRPT ---
PROCEDURE: US guided left thoracentesis. CLINICAL INDICATION: Shortness of breath. Left pleural effusion. TECHNIQUE: Prior to the procedure, informed consent was obtained. The risks, benefits, and alternatives were e xplained to the patient or the patient's family, including but not limited to bleeding, infection, p ain, visceral or vascular damage, shock, pneumothorax, chest tube placement, air embolism, and . The patient or the patient's family understood the risks and the alternatives and wished to proce ed with the study. Informed written consent was obtained. A procedural pause was performed. The patient's name, date of , and procedure to be performed were verified. Ultrasound of the left hemithorax was performed in the axial and sagittal planes. A left pleural eff usion is noted. Utilizing ultrasound guidance, optimal location for entry to the pleural cavity was ascertained. The overlying skin was prepped and draped in the usual sterile fashion. Approximately 10 ml of 1% Xylocaine was injected locally for pain control. Using ultrasound guidance, a 5-Chinese Yueh catheter was introduced into the left pleural space without difficulty. Fluid was aspirated. COMPARISON: None. FINDINGS: Initial ultrasound demonstrates fluid in the left pleural space. Approximately 1.1 liters of serous fluid was aspirated and sent to the laboratory. IMPRESSION: 1. Satisfactory ultrasound-guided left thoracentesis. RPTAT: QQ .Lawrence Reynoso MD, Date Time Electronically viewed and signed by .Lawrence Reynoso MD, on 04/04/2017 17:42 .R/
[2017-04-04 18:10] LABS: FLUID TYPE PLEURAL FLUID
[2017-04-04 18:21] LABS: FLUID LD 392 U/L
[2017-04-04 18:22] LABS: FLUID TOTAL PROTEIN 4.7 g/dl
[2017-04-04 19:28] LABS: FLUID APPEARANCE HAZY; FLUID RBC EST 1+; FLUID TYPE PLEURAL; FLUID WBC'S 439 /cmm
[2017-04-04 20:05] LABS: FLUID LYMPHOCYTES 61 %; FLUID MONOCYTES 37 %; FLUID NEUTROPHILS 2 %
[2017-04-05] VITALS (11 sets, daily range): BP systolic 93–110; BP diastolic 60–69; PULSE 67–101; RESP 16–19
[2017-04-05] MEDS: morphine 2 MG INJ IV PRN ×2 (03:05→09:33)
--- NOTE | 2017-04-05 11:16 | PDOCDIS ---
Discharge Instructions DIAGNOSIS Discharge Diagnosis: pleural effusion CONDITION Patient Condition: Stable HOME CARE INSTRUCTIONS: Diet Instructions: Regular ACTIVITY: Activity Restrictions: No Restrictions FOLLOW UP/APPOINTMENTS Appointments follow up with your oncologist/cancer doctor this week CHRISTEN GRANT MD Apr 05, 2017 11:16
--- NOTE | 2017-04-05 11:26 | DS ---
Date/Time of Note Date/Time of Note DATE: 04/05/17 TIME: 11:20 Discharge Summary Admission/Discharge Info Admit Date/Time Apr 03, 2017 at 22:42 Discharge Date/Time Final Diagnosis pleural effusion, cytology pending Patient Condition: Stable Consults none Procedures US guided thoracentesis by IR 6.15 fluid cytology pending exudative by LDH CT PE protocol 6.15: no PE Hx of Present Illness 51-year-old female with a history of breast cancer and recurrent pleural effusions presents the ED complaining of four-day history of increasing shortness of breath, orthopnea, exertional dyspnea and generalized, sharp, nonradiating chest pain. Denies leg pain or swelling. No cough or hemoptysis. Denies abdominal pain, nausea or vomiting. No fevers or chills. She was admitted for similar symptoms 03/13/2017 at which time a thoracentesis was performed and CT pulmonary angiogram was unremarkable for pulmonary embolism. On my exam patient is currently in no acute distress she is satting at 97% on room air. Allergies: NKDA Medications: See MAR Hospital Course 51 yo F with stage 4 breast ca c/b by previous malignant pleural effusion admitted for SOB, found to have pleural effusion. Pt underwent IR guided drainage 6.15. By 6.16 breathing back to normal and pt amenable to discharge. Pt to see oncology within 7 days for f/u I notified pt's oncology office of this admission to facilitate post discharge f /u Home Meds Reported Medications Oxycodone Hcl* (IR) (Roxicodone*) 5 Mg Tab, 5 MG PO Q4H Y for PAIN, TAB 04/03/17 Discontinued Reported Medications Capecitabine (Capecitabine) 500 Mg Tablet, 500 MG ORAL BID, #56 02/25/17 Discontinued Scripts Albuterol Sulfate* (Proair HFA*) 8.5 Gm Hfa.aer.ad, 2 PUFF INH Q4H Y for WHEEZING AND SOB, #1 INHALER 1 Refill Prov:EMMANUEL CHRISTIAN S. 03/17/17 Levofloxacin* (Levofloxacin*) 750 Mg Tablet, 750 MG PO DAILY for 5 Days, TAB Prov:EMMANUEL CHRISTIAN S. 03/17/17 Primary Care Provider [facility] Pending Labs Laboratory Tests Test 04/04/17 12:15 04/04/17 16:20 04/04/17 19:10 Troponin I < 0.012ng/ml (0.00-0.12) < 0.012ng/ml (0.00-0.12) Body Fluid Type PLEURAL FLUID Body Fluid Volume 800.0ml Body Fluid Color YELLOW Body Fluid Appearance HAZY Body Fluid WBC 439/cmm Body Fluid RBC 1+ Body Fluid Neutrophils % 2% Body Fluid Lymphocytes (%) 61% Body Fluid Monocytes % 37% Body Fluid Other Cells (%) % Body Fluid Total Protein 4.7g/dl Body Fluid Lactate Dehydrogenase 392U/L Microbiology Date/Time Source Procedure Growth Status 04/04/17 16:20 Thoracentesis Fluid Gram Stain Pending Resulted 04/04/17 16:20 Thoracentesis Fluid Body Fluid Culture - Preliminary Resulted CHRISTEN GRANT MD Apr 05, 2017 11:26
[2017-04-05] MEDS: ENOXAPARIN 40 MG/0.4 ML SYG SC SCH (12:22)
== END 2017-04-05 20:05 | disposition home or self-care (01) | DRG 188 ==
LOC: E/R 16:35 → TEL 22:42 → OBSVTOIN 04-05 10:15
PROVIDERS: ADMIT Family Medicine; ATTEND Family Medicine
PROC: 0W9B3ZZ Drainage of Left Pleural Cavity, Percutaneous Approach (ICD-10-PCS; principal; 2017-04-04)
DX: J90 Pleural effusion, not elsewhere classified (principal); C50.919 Malignant neoplasm of unspecified site of unspecified female breast
CPT/HCPCS: 32555; 71010; 71275; 80053; 83615; 84157; 84484; 85025; 85378; 85610; 85730; 87070; 87102; 87116; 88104; 88305; 89050; 93005; 96374; G0378; C9113; J1650; J2270; Q9967

== ENCOUNTER 2017-04-22 12:55 | Emergency (ER) | payer OTHER ==
[~2017-04-22] VITALS: Ht 149.9 cm; Wt 55.0 kg
[~2017-04-22 12:55] MED LIST changes: -ALBU8.5H3 INH; -CAPE500T13 ORAL; -LEVO750T8 PO; +OXYC-481 PO
[2017-04-22 12:58] VITALS: Ht 149.9 cm; Wt 55.0 kg
--- NOTE | 2017-04-22 13:57 | RADRPT ---
PROCEDURE: XR Chest. CLINICAL INDICATION: Chest pain. TECHNIQUE: Single frontal view. COMPARISON: 04/04/2017. FINDINGS: The tunneled right internal jugular vein implanted port catheter remains in position. There is pulm onary edema and bilateral pleural effusions, worse than seen previously. Air space disease at the l anay bases consistent with atelectasis is worse with right worse than left. The heart is enlarged. There is no pneumothorax. IMPRESSION: 1. Worse appearance of the lungs and larger bilateral pleural effusions. RPTAT: QQ .Lawrence Reynoso MD, MD Date Time Electronically viewed and signed by .Lawrence Reynoso MD, MD on 04/22/2017 13:56 .R/
--- NOTE | 2017-04-22 14:03 | ERA ---
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 The patient has a history of breast cancer with recurrent metastatic pleural effusions. The patient presents with right-sided chest pain that is slightly pruritic and sharp and feels very similar to her pleural effusions. She recently had a hospitalization with thoracentesis. She has had multiple ultrasound-guided thoracentesis in the past. The patient denies any fevers or chills, no leg swelling she does note mild shortness of breath. ROS All systems reviewed and are negative except as per history of present illness. Medications Home Meds Reported Medications Mirtazapine* (Mirtazapine*) 15 Mg Tablet, 15 MG PO HS, TAB 04/22/17 Albuterol Sulfate* (Ventolin HFA*) 18 Gm Hfa.aer.ad, 2 PUFF INHALATION Q6H, #1 INHALER 04/22/17 Capecitabine* (Xeloda*) 500 Mg Tablet, 500 MG PO BID, TAB 04/22/17 Palbociclib (Ibrance) 125 Mg Capsule, 125 MG PO DAILY, CAP 04/22/17 Oxycodone Hcl* (IR) (Roxicodone*) 5 Mg Tab, 5 MG PO Q4H Y for PAIN, TAB 04/03/17 Allergies Allergies: Coded Allergies: No Known Allergy (Verified , 04/22/17) PMhx/Soc History of Surgery: Yes (LEFT MASTECTOMY) Anesthesia Reaction: No Hx Neurological Disorder: No Hx Respiratory Disorders: Yes (PLEURAL EFFUSION) Hx Cardiac Disorders: No Hx Psychiatric Problems: No Hx Miscellaneous Medical Probl: Yes (METASTATIC BREAST CA) Hx Alcohol Use: No Hx Substance Use: No Hx Tobacco Use: No Smoking Status: Never smoker FmHx Family History: No diabetes Physical Exam Vitals Vital Signs Date Time Temp Pulse Resp B/P Pulse Ox O2 Delivery O2 Flow Rate FiO2 04/22/17 17:05 98.0 80 18 118/87 98 Room Air 04/22/17 13:28 Nasal Cannula 2 04/22/17 12:58 98.2 91 18 113/73 97 Physical Exam General: Well developed, well nourished, no acute distress Head: Normocephalic, atraumatic. Eyes: Pupils equally reactive, EOM intact ENT: Moist mucous membranes Neck: Supple, no lymphadenopathy Respiratory: Decreased lung sounds of the right base Cardiovascular: RRR, no murmurs, rubs, or gallops Abdominal: Soft, non-tender, non-distended, no peritoneal signs : Deferred MSK: No edema, no unilateral swelling, 5/5 strength Neurologic: Alert and oriented, moving all extremities, normal speech, no focal weakness, no cerebellar signs Skin: No rash Psych: Normal mood Result Diagram: 04/22/17 1415 04/22/17 1415 Results 24 hrs Laboratory Tests Test 04/22/17 14:15 White Blood Count 5.210^3/ul Red Blood Count 4.5310^6/ul Hemoglobin 12.6g/dl Hematocrit 39.0% Mean Corpuscular Volume 86.1fl Mean Corpuscular Hemoglobin 27.8pg Mean Corpuscular Hemoglobin Concent 32.3g/dl Red Cell Distribution Width 13.5% Platelet Count 18212^3/UL Mean Platelet Volume 9.3fl Neutrophils % 50.0% Lymphocytes % 40.0% Monocytes % 4.0% Eosinophils % 6.0% Neutrophils # 2.610^3/ul Lymphocytes # 2.110^3/ul Monocytes # 0.210^3/ul Eosinophils # 0.310^3/ul Prothrombin Time 12.8Sec Prothrombin Time Ratio 1.0 INR International Normalized Ratio 0.96 Activated Partial Thromboplast Time 25.5Sec Sodium Level 142mmol/L Potassium Level 4.4mmol/L Chloride Level 102mmol/L Carbon Dioxide Level 26mmol/L Anion Gap 18 Blood Urea Nitrogen 16mg/dl Creatinine 0.77mg/dl Glucose Level 98mg/dl Calcium Level 9.3mg/dl Troponin I < 0.012ng/ml Current Medications Medications (Trade) Dose Ordered Sig/Katerin Route PRN Reason Start Time Stop Time Status Last Admin Dose Admin Lidocaine (Xylocaine 1% (Mpf)) 5 ml STK-MED ONCE .ROUTE 04/22/17 16:41 04/22/17 16:42 DC Procedures/MDM EKG, MONITORS, & DIAGNOSTIC IMAGING: EKG: I reviewed and interpreted a 12-lead EKG. Rhythm: Normal sinus rhythm Ectopy: None Intervals: No abnormalities ST segments: No elevations or depressions T waves: No contiguous inversions Chest x-ray: I reviewed and interpreted a 1 view of the chest Mediastinum: No enlargement Cardiac silhouette: No cardiomegaly Airspace: Moderate size right-sided pleural effusion Bones: No evidence of fracture US THORA IMPRESSION: 1. Satisfactory ultrasound-guided right thoracentesis. RPTAT: QQ LAB INTERPRETATION: Negative troponin, no leukocytosis MEDICAL DECISION MAKING: The patient presents the emergency room with chest pain. Her chest pain is likely secondary to malignant pleural effusion. The patient had a recent hospitalization. In the past with this pain she has had multiple workups including CTPA's to rule out pulmonary embolism. They have been negative. I do not believe her symptoms today are consistent with pulmonary embolism. No hypoxia no tachycardia. I do not believe CTPA is necessary. The patient may benefit from ultrasound-guided thoracentesis and if able to obtain here during business hours the patient may not warrant hospitalization. I do not believe her chest pain is consistent with acute coronary syndrome. ER COURSE: The patient had successful thoracentesis by interventional radiology. Her symptoms are improved. She is hemodynamically stable. No evidence of infection or infarction. The patient can be safely discharged home with outpatient follow-up with her primary care team. I kept the patient and/or family informed of laboratory and diagnostic imaging results throughout the emergency room course. DISPOSITION PLAN: We discussed follow up with the patient's primary care doctor within 24 to 48 hours as needed. We also discussed return to the emergency room for worsening symptoms or worsening condition. Outpatient referral: [None required] Departure Diagnosis: Primary Impression: Malignant pleural effusion Condition: Stable TUAN ALTAMIRANO MD Apr 22, 2017 14:03
[2017-04-22 14:22] LABS: ADD SCAN DIFF NO
[2017-04-22 14:24] LABS: HEMOGLOBIN 12.6 g/dl (12.0-16.0); MEAN CORPUSCULAR HEMOGLOBIN 27.8 pg (29.0-33.0); MEAN CORPUSCULAR HGB CONC 32.3 g/dl (32.0-37.0); MEAN CORPUSCULAR VOLUME 86.1 fl (82.0-101.0); MEAN PLATELET VOLUME 9.3 fl (7.4-10.4); PLATELET COUNT 312 10^3/UL (140-415); RED BLOOD COUNT 4.53 10^6/ul (4.20-5.40); RED CELL DISTRIBUTION WIDTH 13.5 % (11.5-14.5); WHITE BLOOD COUNT 5.2 10^3/ul (4.8-10.8)
[2017-04-22] MEDS ORDERED: PALB125C PO (14:33)
[2017-04-22] MEDS ORDERED: CAPE500T11 PO (14:33)
[2017-04-22] MEDS ORDERED: MIRT15TA5 PO (14:34)
[2017-04-22] MEDS ORDERED: ALBU18HF INHALATION (14:34)
[2017-04-22 14:40] LABS: INR 0.96; PARTIAL THROMBOPLASTIN TIME 25.5 Sec (25.0-35.0); PROTIME 12.8 Sec (12.2-14.2)
[2017-04-22 14:43] LABS: ANION GAP 18 (8-16); BLOOD UREA NITROGEN 16 mg/dl (7-20); CALCIUM 9.3 mg/dl (8.4-10.2); CARBON DIOXIDE 26 mmol/L (21-31); CHLORIDE 102 mmol/L (97-110); CREATININE 0.77 mg/dl (0.44-1.00); GLUCOSE 98 mg/dl (70-220); POTASSIUM 4.4 mmol/L (3.5-5.1); SODIUM 142 mmol/L (135-144)
[2017-04-22 14:56] LABS: TROPONIN-I < 0.012 ng/ml (0.00-0.12)
[2017-04-22 15:28] LABS: EOSINOPHILS # 0.3 10^3/ul (0.0-0.5); LYMPHOCYTES # 2.1 10^3/ul (0.8-2.9); MONOCYTE # 0.2 10^3/ul (0.3-0.9); NEUTROPHIL # 2.6 10^3/ul (1.6-7.5)
[2017-04-22] MEDS ORDERED: LIDOCAINE 1% (MPF) 5 ML VIAL ONE (16:41)
--- NOTE | 2017-04-22 16:53 | RADRPT ---
PROCEDURE: XR Chest 1 View. CLINICAL INDICATION: Status post thoracentesis. TECHNIQUE: AP view of the chest was obtained. COMPARISON: April 22, 2017 at 01:41 p.m. FINDINGS: Heart borders are obscured by the opacities. Right-sided chest port is stable. There has been inte rval decrease in right pleural effusion.. Moderate residual with associated right middle and lower lobe atelectasis/infiltrates remains. No pneumothorax as visualized. Left lower lobe infiltrates c ombined with moderate pleural effusion are stable. Surgical clips are seen in the left axilla. Osse ous structures are intact. IMPRESSION: Interval decrease in right pleural effusion. Moderate residual with associated right middle and low er lobe atelectasis/infiltrates continues to be seen. No visualized pneumothorax. Stable left lower lobe infiltrates and moderate left pleural effusion. RPTAT: AA .Manuel Tang MD, MD Date Time Electronically viewed and signed by .Manuel Tang MD, MD on 04/22/2017 16:53 .P/
--- NOTE | 2017-04-22 16:54 | RADRPT ---
PROCEDURE: US guided right thoracentesis. CLINICAL INDICATION: Shortness of breath. Right pleural effusion. TECHNIQUE: Prior to the procedure, informed consent was obtained. The risks, benefits, and alternatives were e xplained to the patient or the patient's family, including but not limited to bleeding, infection, p ain, visceral or vascular damage, shock, pneumothorax, chest tube placement, air embolism, and . The patient or the patient's family understood the risks and the alternatives and wished to proce ed with the study. Informed written consent was obtained. A procedural pause was performed. The patient's name, date of , and procedure to be performed were verified. Ultrasound of the right hemithorax was performed in the axial and sagittal planes. A right pleural e ffusion is noted. Utilizing ultrasound guidance, optimal location for entry to the pleural cavity wa s ascertained. The overlying skin was prepped and draped in the usual sterile fashion. Approximate ly 10 ml of 1% Xylocaine was injected locally for pain control. Using ultrasound guidance, a 5-Fren Yueh catheter was introduced into the right pleural space without difficulty. Fluid was aspirated . COMPARISON: Chest x-ray done earlier the same day. FINDINGS: Initial ultrasound demonstrates fluid in the right pleural space. Approximately 1.6 liters of serou s fluid was aspirated and discarded. IMPRESSION: 1. Satisfactory ultrasound-guided right thoracentesis. RPTAT: QQ .Lawrence Reynoso MD, Date Time Electronically viewed and signed by .Lawrence Reynoso MD, on 04/22/2017 16:54 .R/
[2017-04-22 17:32] VITALS: BP 122/90; PULSE 81; RESP 26; TEMP 98.2
== END 2017-04-22 17:34 | disposition home or self-care (01) ==
LOC: E/R 12:55
DX: R07.9 Chest pain, unspecified (principal); J91.0 Malignant pleural effusion; Z85.3 Personal history of malignant neoplasm of breast
CPT/HCPCS: 36415; 71010; 76942; 80048; 84484; 85025; 85610; 85730; 93005; Z7502; Z7610

== ENCOUNTER 2017-05-08 09:05 | Inpatient (IN) | payer OTHER ==
[~2017-05-08] VITALS: Ht 157.5 cm; Wt 53.0 kg
[~2017-05-08 09:05] MED LIST changes: +ALBU18HF INHALATION; +CAPE500T11 PO; +MIRT15TA5 PO; +PALB125C PO
[2017-05-08] MEDS ORDERED: KETOROLAC 15 MG INJ IV STA (09:57)
[2017-05-08] MEDS ORDERED: FUROSEMIDE 40 MG INJ IV ONE (10:00)
--- NOTE | 2017-05-08 10:03 | ERD ---
ER Documentation Chief Complaint Date/Time DATE: 05/08/17 TIME: 10:00 Chief Complaint chest pain x 3 days HPI 51-year-old woman with complaints of shortness of breath 3 days. She has had similar episodes in the past. Patient has a history of diffuse metastatic breast adenocarcinoma and bilateral pleural effusions. With her shortness of breath she has had nonexertional nonradiating substernal pressure-like chest pain. She denies fevers or chills, no calf or leg swelling, no vomiting or diarrhea. ROS All systems reviewed and are negative except as per history of present illness. Medications Home Meds Reported Medications Mirtazapine* (Mirtazapine*) 15 Mg Tablet, 15 MG PO HS, TAB 04/22/17 Albuterol Sulfate* (Ventolin HFA*) 18 Gm Hfa.aer.ad, 2 PUFF INHALATION Q6H, #1 INHALER 04/22/17 Capecitabine* (Xeloda*) 500 Mg Tablet, 500 MG PO BID, TAB 04/22/17 Palbociclib (Ibrance) 125 Mg Capsule, 125 MG PO DAILY, CAP 04/22/17 Oxycodone Hcl* (IR) (Roxicodone*) 5 Mg Tab, 5 MG PO Q4H Y for PAIN, TAB 04/03/17 Allergies Allergies: Coded Allergies: No Known Allergy (Verified , 05/08/17) PMhx/Soc Bilateral pleural effusions, hypertension, metastatic breast cancer, recent CT angiogram of the chest which was negative for pulmonary embolism. History of Surgery: Yes (LEFT MASTECTOMY) Anesthesia Reaction: No Hx Neurological Disorder: No Hx Respiratory Disorders: Yes (PLEURAL EFFUSION) Hx Cardiac Disorders: No Hx Psychiatric Problems: No Hx Miscellaneous Medical Probl: Yes (METASTATIC BREAST CA) Hx Alcohol Use: No Hx Substance Use: No Hx Tobacco Use: No FmHx Family History: No diabetes Physical Exam Vitals Vital Signs Date Time Temp Pulse Resp B/P Pulse Ox O2 Delivery O2 Flow Rate FiO2 05/08/17 09:10 98.8 82 18 113/73 95 Physical Exam GENERAL: Well-developed, well-nourished, well-hydrated, dyspneic, afebrile HEENT: Moist mucous membranes, pink conjunctiva, no cervical spine tenderness or step-off deformities, no goiter, no jaundice or icterus, extraocular movements intact without pain. No submandibular induration, and no pharyngeal erythema NEURO: Alert and oriented 3, cranial nerves II through XII intact bilaterally, pupils equal round reactive to light, no focal deficits or facial asymmetry, sensation intact distally Strength 5/5 in upper and lower extremities bilaterally CARDIAC: Regular rate and rhythm, no murmurs rubs or gallops LUNGS: Poor breath sounds bilaterally, no wheezing crackles or stridor. Tachypnea to 30 breaths per minute. ABDOMEN: Soft nontender, no guarding, no rigidity, no rebound, no psoas sign no obturator sign. Normoactive bowel sounds SKIN: Warm and dry to touch, no abrasions, contusions, or hematomas, no lacerations, no ecchymosis, no target lesions, and without ulcers EXTREMITIES: No clubbing cyanosis or edema, calves are bilaterally symmetrical, no Homans sign, no popliteal cord sign. Distal pulses equal and bilateral PSYCH: Normal affect without agitation or irritability Result Diagram: 05/08/17 1015 05/08/17 1015 Results 24 hrs Laboratory Tests Test 05/08/17 10:03 05/08/17 10:15 Blood Gas Specimen Source Blood arterial Arterial Blood Date Drawn 05/08/2017 10:19:27 AM Arterial Blood pH (Temp corrected) 7.448 Arterial Blood pCO2 (Temp correct) 34.2mmhg Arterial Blood pO2 (Temp corrected) 61.6mmHG Arterial Blood HCO3 23.1mmol/L Arterial Blood Base Excess -0.3mmol/L Arterial Blood Oxygen Saturation 91.4mmHG Odell Test N/A Arterial Blood Gas Puncture Site Right Brachial Arterial Blood Carboxyhemoglobin 0.3% Arterial Blood Methemoglobin 0.2% Blood Gas A-a O2 Differential 47.2mmHg Oxyhemoglobin Percent 90.9% Total Hemoglobin 13.0g/dl Blood Gas Temperature 37.0C Blood Gas Modality ROOM AIR FiO2 21.0% Blood Gas Notified Whom MDA Blood Gas Notified Time 05/08/2017 10:23:49 AM White Blood Count 1.810^3/ul Red Blood Count 4.6210^6/ul Hemoglobin 12.7g/dl Hematocrit 39.1% Mean Corpuscular Volume 84.6fl Mean Corpuscular Hemoglobin 27.5pg Mean Corpuscular Hemoglobin Concent 32.5g/dl Red Cell Distribution Width 14.4% Platelet Count 71325^3/UL Mean Platelet Volume 10.6fl Neutrophils % % Lymphocytes % % Monocytes % % Neutrophils # 10^3/ul Lymphocytes # 10^3/ul Monocytes # 10^3/ul Sodium Level 145mmol/L Potassium Level 4.4mmol/L Chloride Level 104mmol/L Carbon Dioxide Level 23mmol/L Anion Gap 22 Blood Urea Nitrogen 11mg/dl Creatinine 0.70mg/dl Glucose Level 100mg/dl Calcium Level 9.4mg/dl Total Bilirubin 0.3mg/dl Direct Bilirubin 0.00mg/dl Indirect Bilirubin 0.3mg/dl Aspartate Amino Transf (AST/SGOT) 38IU/L Alanine Aminotransferase (ALT/SGPT) 21IU/L Alkaline Phosphatase 65IU/L Troponin I < 0.012ng/ml B-Type Natriuretic Peptide 240PG/ML Total Protein 7.9g/dl Albumin 4.2g/dl Globulin 3.70g/dl Albumin/Globulin Ratio 1.13 Lipase 92U/L Current Medications Medications (Trade) Dose Ordered Sig/Katerin Route PRN Reason Start Time Stop Time Status Last Admin Dose Admin Ketorolac Tromethamine (Toradol) 15 mg ONCE STAT IV 05/08/17 09:57 05/08/17 10:02 DC 05/08/17 10:56 Furosemide (Lasix) 40 mg ONCE ONCE IV 05/08/17 10:00 05/08/17 10:02 DC 05/08/17 10:56 Procedures/MDM IV line was established patient was placed on 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 Patient was afebrile. Room air oxygen 90%, patient tachypnic to 30 breaths per minute. ABG performed, read by me revealed a pH of 7.45, PCO2 34, PO2 61 revealing respiratory alkalosis and hypoxia. EKG performed, read by me revealed a normal sinus rhythm 84 bpm, normal axis, narrow QRS complex, no concerning ST elevations or depressions noted. One view chest x-ray performed, read by me there is large bilateral pleural effusions, no acute infiltrates, no pneumothorax. Port-A-Cath in the right chest. CBC reveals leukopenia 1.8, electrolytes unremarkable, liver function tests normal, troponin negative. I administered Toradol 15 mg IV and furosemide 40 mg IV 1. Cardiac Critical Care: Time: 38 minutes, this was time separate from other billable procedures Treatments/Evaluations: Close monitoring for dangerous arrhythmia and cardiovascular collapse, while treating with advance cardiac medications and techniques. Patient remains symptomatic she will be admitted to telemetry setting. She may require thoracentesis. Departure Diagnosis: Primary Impression: Acute respiratory failure Respiratory failure complication: hypoxia Qualified Code: J96.01 - Acute respiratory failure with hypoxia Additional Impressions: Bilateral pleural effusion Metastatic breast cancer Leukopenia Leukopenia type: lymphocytopenia Qualified Code: D72.810 - Lymphocytopenia Chest pain Chest pain type: unspecified Qualified Code: R07.9 - Chest pain, unspecified type Condition: Serious AYSHA LLAMAS MD May 08, 2017 10:02
[2017-05-08 10:24] LABS: AADO2 Arterial 47.2 mmHg (7.0-24.0); Arterial Base Excess -0.3 mmol/L (-3.0-3); Arterial COHb 0.3 % (0.0-3.0); Arterial Fraction of Oxyhgb 90.9 % (93.0-99.0); Arterial HCO3 23.1 mmol/L (22.0-26.0); Arterial MetHb 0.2 % (0.0-1.5); MODE ROOM AIR
[2017-05-08 10:33] LABS: ADD SCAN DIFF NO
[2017-05-08 10:38] LABS: ABNORMAL IP MESSAGE 1; HEMATOCRIT 39.1 % (37.0-47.0); HEMOGLOBIN 12.7 g/dl (12.0-16.0); MEAN CORPUSCULAR HEMOGLOBIN 27.5 pg (29.0-33.0); MEAN CORPUSCULAR HGB CONC 32.5 g/dl (32.0-37.0); MEAN CORPUSCULAR VOLUME 84.6 fl (82.0-101.0); MEAN PLATELET VOLUME 10.6 fl (7.4-10.4); PLATELET COUNT 167 10^3/UL (140-415); RED BLOOD COUNT 4.62 10^6/ul (4.20-5.40); RED CELL DISTRIBUTION WIDTH 14.4 % (11.5-14.5)
--- NOTE | 2017-05-08 10:38 | RADRPT ---
PROCEDURE: Chest x-ray CLINICAL INDICATION: Abdominal pain TECHNIQUE: Chest single view COMPARISON: 04/22/2017 FINDINGS: There is right IJ Port-A-Cath. Heart is normal in size. Bony vessels are normal in caliber. There is persistent moderate to large bilateral pleural effusions which have increased from prior examina tion. There is no associated lower lobe compressive atelectasis and volume loss. IMPRESSION: 1. Moderate to large bilateral pleural effusions which have increased slightly from the prior exami nation. 2. Associated lower lobe compressive atelectasis and volume loss. 3. Port-A-Cath. 4. Surgical clips in the left axilla RPTAT: HH .Andry Rodrigues MD, MD Date Time Electronically viewed and signed by .Andry Rodrigues MD, on 05/08/2017 10:37 .W/
[2017-05-08 11:04] LABS: ALANINE AMINOTRANSFERASE 21 IU/L (13-69); ALBUMIN 4.2 g/dl (3.3-4.9); ALBUMIN/GLOBULIN RATIO 1.13; ALKALINE PHOSPHATASE 65 IU/L (42-121); ANION GAP 22 (8-16); ASPARTATE AMINO TRANSFERASE 38 IU/L (15-46); BILIRUBIN,INDIRECT 0.3 mg/dl (0-1.1); BILIRUBIN,TOTAL 0.3 mg/dl (0.2-1.3); BLOOD UREA NITROGEN 11 mg/dl (7-20); CALCIUM 9.4 mg/dl (8.4-10.2); CARBON DIOXIDE 23 mmol/L (21-31); CHLORIDE 104 mmol/L (97-110); GLUCOSE 100 mg/dl (70-220); POTASSIUM 4.4 mmol/L (3.5-5.1); SODIUM 145 mmol/L (135-144); TOTAL PROTEIN 7.9 g/dl (6.1-8.1)
[2017-05-08 11:16] LABS: B-TYPE NATRIURETIC PEPTIDE 240 PG/ML (0-125)
[2017-05-08 11:19] LABS: TROPONIN-I < 0.012 ng/ml (0.00-0.12)
[2017-05-08 12:13] VITALS: TEMP 98.5
[2017-05-08 12:40] LABS: LYMPHOCYTES # 0.9 10^3/ul (0.8-2.9); MONOCYTE # 0.1 10^3/ul (0.3-0.9); NEUTROPHIL # 0.8 10^3/ul (1.6-7.5)
[2017-05-08] MEDS ORDERED: ALBUTEROL/IPRATROPIUM (NEB) 3 ML AMP HHN PRN (14:30)
[2017-05-08] MEDS ORDERED: ALBUTEROL 18 GM INHALER INH PRN (14:30)
[2017-05-08] MEDS ORDERED: LORAZEPAM 2 MG INJ IV PRN (14:30)
[2017-05-08] MEDS ORDERED: morphine 2 MG INJ IV PRN (14:30)
[2017-05-08] MEDS ORDERED: hydrALAzine 20 MG INJ IV PRN (14:30)
[2017-05-08] MEDS ORDERED: NACL 0.9% 3 ML SYG IV SCH (14:30)
[2017-05-08] MEDS ORDERED: MAGNESIUM HYDROXIDE 30ML CUP PO PRN (14:30)
[2017-05-08] MEDS ORDERED: HYDROCODONE/APAP (5/325) TAB PO PRN (14:30)
[2017-05-08] MEDS ORDERED: NA PHOSPHATE/BIPHOS 133 ML ENEMA PR PRN (14:30)
[2017-05-08] MEDS ORDERED: DOCUSATE SODIUM 100 MG CAP PO PRN (14:30)
[2017-05-08] MEDS ORDERED: NITROGLYCERIN (SL) 0.4 MG TAB SL PRN (14:30)
[2017-05-08] MEDS ORDERED: ONDANSETRON 4 MG INJ IV PRN (14:30)
[2017-05-08] MEDS ORDERED: ACETAMINOPHEN 325 MG TAB PO PRN (14:30)
[2017-05-08 14:56] LABS: INR 0.97; PROTIME 12.9 Sec (12.2-14.2)
[2017-05-08 14:57] LABS: PARTIAL THROMBOPLASTIN TIME 25.8 Sec (25.0-35.0)
[2017-05-08] MEDS: [UNRECOGNIZED DRUG - MIXTURE] XX SCH ×2 (15:00→21:39)
--- NOTE | 2017-05-08 15:11 | HP ---
Date/Time of Note Date/Time of Note DATE: 05/08/17 TIME: 15:05 Assessment/Plan VTE Prophylaxis VTE Prophylaxis Intervention: heparin Assessment/Plan Chief Complaint/Hosp Course 51-year-old female with metastatic breast cancer and recurrent pleural effusions presents with shortness of breath, with signs of new bilateral pleural effusions. 1. Shortness of breath: Again likely secondary to patient's pleural effusions. Which is likely from her metastatic breast cancer. -We will admit patient, pain control medications, antiemetics, order for bilateral thoracentesis. - Get hematology oncology consult as well. 2. Metastatic breast cancer: Again see #1, obtain a hematology oncology consult , continue current p.o. chemotherapy medications 3. GI prophylaxis: PPI Problems: HPI/ROS Admit Date/Time Admit Date/Time Hx of Present Illness 51-year-old female past medical history of metastatic ER/VT positive and HER-2 negative breast cancer, currently involving her bones, pleura and lymph nodes, as well as recurrent pleural effusions, who presents with shortness of breath occurring for 3 days. Denies any fevers or chills, upper or lower GI bleeding, no nausea or vomiting. No diarrhea no constipation, no headaches or dizziness or loss of consciousness. When she came into the ER today she had chest x-ray performed that shows bilateral pleural effusions. Patient was last here at our hospital from April 03 - April 05, 2017 for similar presentation of pleural effusions and shortness of breath. PMH/Family/Social Past Surgical History Past Surgical Hx: other (Left breast mastectomy) Social History Alcohol Use: none Smoking Status: Never smoker Drug Use: none Exam/Review of Systems Vital Signs Vitals Vital Signs Date Time Temp Pulse Resp B/P Pulse Ox O2 Delivery O2 Flow Rate FiO2 05/08/17 13:56 88 18 110/83 99 Nasal Cannula 3.0 05/08/17 12:13 98.5 Exam Exam General: Pleasant female who is frail-appearing and in no acute distress HEENT: Atraumatic, normocephalic. The pupils are equal, round and reactive. Extraocular motor are intact Neck: Supple with full range of motion. No rigidity or meningismus Lungs: Some decreased breath sounds bilaterally at the lung bases, crackles at the lower lung shepherd bilaterally Heart: Normal S1-S2, Regular rhythm and rate. Abdomen: Soft , nontender, nondistended , bowel sounds are present. No guarding no rebound tenderness , No masses or organomegaly. Extremities: Normal to inspection, no edema no cyanosis Neurologic: Normal mental status, speech normal, cranial nerves II through XII are intact, motor and sensory are intact, no focal weakness Labs Result Diagram: 05/08/17 1015 05/08/17 1015 Medications Medications Current Medications Ondansetron HCl (Zofran Inj) 4 mg Q6H PRN IV NAUSEA AND/OR VOMITING; Start at 14:30 Acetaminophen (Tylenol Tab) 650 mg Q6H PRN PO PAIN LEVEL 1-3 OR FEVER; Start at 14:30 Acetaminophen/ Hydrocodone Bitart ([place] (5/325)) 1 tab Q6H PRN PO MODERATE PAIN LEVEL 4-6; Start 05/08/17 at 14:30 Morphine Sulfate (morphine) 2 mg Q4H PRN IV SEVERE PAIN LEVEL 7-10; Start 05/08 at 14:30 Docusate Sodium (Colace) 100 mg Q12H PRN PO CONSTIPATION; Start 05/08/17 at 14: 30 Magnesium Hydroxide (Milk Of Mag) 30 ml DAILY PRN PO CONSTIPATION; Start at 14:30 Sodium Biphosphate/ Sodium Phosphate (Fleet Enema) 133 ml DAILY PRN [place] CONSTIPATION; Start 05/08/17 at 14:30 Pantoprazole (Protonix Iv) 40 mg DAILY@06 IV ; Start 05/09/17 at 06:00 Heparin Sodium (Porcine) (Heparin (5000 Units/0.5 ml)) 5,000 unit Q12 SC ; Start 05/08/17 at 21:00 Lorazepam 0.5 mg 0.5 mg Q6H PRN IV ANXIETY; Start 05/08/17 at 14:30 Levofloxacin/ Dextrose (Levaquin 750 Mg/ D5W 150 ml (Pmx)) 150 ml @ 100 mls/hr Q24H IVPB ; Start 05/08/17 at 15:25 Hydralazine HCl (Apresoline) 10 mg Q6H PRN IV ELEVATED BLOOD PRESSURE; Start at 14:30 Nitroglycerin (Nitroglycerin (Sl Tab) 0.4 Mg) 1 tab Q5M PRN SL ANGINA; Start at 14:30 Capecitabine (Xeloda) 500 mg BID PO ; Start 05/08/17 at 21:00 Mirtazapine (Remeron) 15 mg HS PO ; Start 05/08/17 at 21:00 Oxycodone HCl (Roxicodone) 5 mg Q4H PRN PO PAIN; Start 05/08/17 at 14:30 Miscellaneous Information 125 mg DAILY PO ; Start 05/09/17 at 09:00; Status UNV Miscellaneous Information (*Order Clarification Bulletin) Palbociclib (Ibrance) 125 MG, PLEASE H... Q8H XX ; Start 05/08/17 at 15:00 EMMANUEL CHRISTIAN May 08, 2017 15:11
[2017-05-08] MEDS ORDERED: LEVOFLOXACIN 750MG/D5W (PMX) 150 ML IVPB SCH (15:25)
--- NOTE | 2017-05-08 16:13 | RADRPT ---
PROCEDURE: US guided left thoracentesis. CLINICAL INDICATION: Shortness of breath. Left pleural effusion. TECHNIQUE: Prior to the procedure, informed consent was obtained. The risks, benefits, and alternatives were e xplained to the patient or the patient's family, including but not limited to bleeding, infection, p ain, visceral or vascular damage, shock, pneumothorax, chest tube placement, air embolism, and . The patient or the patient's family understood the risks and the alternatives and wished to proce ed with the study. Informed written consent was obtained. A procedural pause was performed. The patient's name, date of , and procedure to be performed were verified. Ultrasound of the left hemithorax was performed in the axial and sagittal planes. A left pleural eff usion is noted. Utilizing ultrasound guidance, optimal location for entry to the pleural cavity was ascertained. The overlying skin was prepped and draped in the usual sterile fashion. Approximately 10 ml of 1% Xylocaine was injected locally for pain control. Using ultrasound guidance, a 5-Amharic Yueh catheter was introduced into the left pleural space without difficulty. Fluid was aspirated. COMPARISON: Chest x-ray done earlier the same day. FINDINGS: Initial ultrasound demonstrates fluid in the left pleural space. Approximately 1.4 liters of serous fluid was aspirated and sent to the laboratory. IMPRESSION: 1. Satisfactory ultrasound-guided left thoracentesis. RPTAT: QQ .Lawrence Reynoso MD, MD Date Time Electronically viewed and signed by .Lawrence Reynoso MD, on 05/08/2017 16:12 .R/
[2017-05-08] MEDS ORDERED: LIDOCAINE 1% (MPF) 5 ML VIAL ONE (16:21)
--- NOTE | 2017-05-08 16:29 | RADRPT ---
PROCEDURE: XR Chest. CLINICAL INDICATION: Shortness of breath. Post left thoracentesis. TECHNIQUE: Single frontal view. COMPARISON: 05/08/2017. 1023 hours. FINDINGS: There is a tunneled right internal jugular vein implanted port central venous catheter with the tip in the lower superior vena cava. Right pleural effusion and right basilar atelectasis are unchanged . There is a very small left pleural effusion following left thoracentesis. There is improved aera tion of the left lung. The heart size is normal. There is no pneumothorax. IMPRESSION: 1. No pneumothorax following left thoracentesis. RPTAT: QQ .Lawrence Reynoso MD, MD Date Time Electronically viewed and signed by .Lawrence Reynoso MD, MD on 05/08/2017 16:29 .R/
[2017-05-08 17:35] VITALS: BP 140/68; PULSE 88; RESP 18
[2017-05-08 18:00] VITALS: BMI 21.4
[2017-05-08 19:47] VITALS: BP 119/81; RESP 18
[2017-05-08 20:08] VITALS: Ht 157.5 cm; Wt 53.0 kg
[2017-05-08] MEDS: oxyCODONE 5 MG TAB PO PRN (20:48)
[2017-05-08] MEDS ORDERED: MIRTAZAPINE 15 MG TAB PO SCH (21:00)
[2017-05-08] MEDS: CAPECITABINE 500 MG TAB PO SCH (21:00)
[2017-05-08] MEDS: HEPARIN 5,000 UNIT/0.5 ML VIAL SC SCH (21:44)
[2017-05-09] MEDS: [UNRECOGNIZED DRUG - MIXTURE] XX SCH ×2 (04:16→12:55)
[2017-05-09] MEDS: PANTOPRAZOLE 40 MG INJ IV SCH ×2 (05:01→05:46)
[2017-05-09 05:25] LABS: ADD SCAN DIFF NO
[2017-05-09 05:28] LABS: ABNORMAL IP MESSAGE 1; BASOPHILS % 0.5 % (0.0-2.0); HEMATOCRIT 34.5 % (37.0-47.0); HEMOGLOBIN 11.7 g/dl (12.0-16.0); LYMPHOCYTES # 1.1 10^3/ul (0.8-2.9); MEAN CORPUSCULAR HEMOGLOBIN 28.3 pg (29.0-33.0); MEAN CORPUSCULAR HGB CONC 33.9 g/dl (32.0-37.0); MEAN CORPUSCULAR VOLUME 83.5 fl (82.0-101.0); MEAN PLATELET VOLUME 9.5 fl (7.4-10.4); MONOCYTE # 0.1 10^3/ul (0.3-0.9); MONOCYTES % 4.9 % (0.0-11.0); NEUTROPHIL # 0.6 10^3/ul (1.6-7.5); NEUTROPHILS % 32.3 % (39.0-77.0); PLATELET COUNT 159 10^3/UL (140-415); RED BLOOD COUNT 4.13 10^6/ul (4.20-5.40); RED CELL DISTRIBUTION WIDTH 13.7 % (11.5-14.5); WHITE BLOOD COUNT 1.8 10^3/ul (4.8-10.8)
[2017-05-09 05:50] LABS: LYMPHOCYTES % 62.3 % (15.0-51.0)
[2017-05-09 05:54] LABS: CALCIUM 9.2 mg/dl (8.4-10.2); CREATININE 0.77 mg/dl (0.44-1.00); MAGNESIUM 1.9 mg/dl (1.7-2.5); PHOSPHORUS 4.9 mg/dl (2.5-4.9); POTASSIUM 3.4 mmol/L (3.5-5.1)
[2017-05-09 06:05] LABS: CHOL/HDL RATIO 3.2 RATIO
[2017-05-09 06:23] LABS: THYROID STIMULATING HORMONE 0.875 MIU/L (0.465-4.680)
[2017-05-09 07:43] VITALS: BP 100/62; RESP 18
[2017-05-09] MEDS: CAPECITABINE 500 MG TAB PO SCH (09:00)
[2017-05-09] MEDS ORDERED: PALBOCICLIB 125 MG PO SCH (09:00)
[2017-05-09] MEDS: HEPARIN 5,000 UNIT/0.5 ML VIAL SC SCH (09:35)
[2017-05-09 10:46] LABS: WHITE BLOOD COUNT 1.8 10^3/ul (4.8-10.8)
--- NOTE | 2017-05-09 10:52 | PDOCDIS ---
Discharge Instructions CONDITION Patient Condition: Stable HOME CARE INSTRUCTIONS: Diet Instructions: Regular ACTIVITY: Activity Restrictions: Slowly Increase Activity FOLLOW UP/APPOINTMENTS Follow-up Plan Please follow up with your doctor in the clinic in 1 week. EMMANUEL CHRISTIAN May 09, 2017 10:52
[2017-05-09] MEDS ORDERED: POTASSIUM CHLORIDE (SR) 20 MEQ TAB PO STA (11:10)
[2017-05-09] MEDS: oxyCODONE 5 MG TAB PO PRN (11:40)
--- NOTE | 2017-05-09 14:29 | CONS ---
Date/Time of Note Date/Time of Note DATE: 05/09/17 TIME: 11:14 Assessment/Plan Assessment/Plan Chief Complaint/Hosp Course 51-year-old female with metastatic ER/CA positive, HER2 negative breast cancer involving her bones, sclera and lymph nodes, recently switched to ibrance/ faslodex per Dr. Hayes, with repeated admissions for malignant pleural effusions and shortness of breath. - s/p thoracentesis of the left pleura that removed 1.4 L with symptomatic relief - patient just started on new line of therapy, hopefully improved control with new line of treatment will help control malignant pleural effusions, but if keeps recurring may need PleurX catheter or pleurodesis - patient to be discharged home per primary team and should f/u with Dr. Hayes next week Problems: Consultation Date/Type/Reason Admit Date/Time Date of Consultation: May 09, 2017 Type of Consultation: Oncology Reason for Consultation Metastatic breast cancer Hx of Present Illness 51-year-old female with metastatic ER/CA positive, HER2 negative breast cancer involving her bones, sclera and lymph nodes, who progressed through taxotere, adriamycin, cytoxan, aromasin, afinitor, and gemzar and most recently on xeloda/ Ixempra, with recurrent admissions for malignant pleural effusions. Given that this was her fourth line of therapy, Dr. Hayes switched the patient to ibrance/ faslodex rather than letrozole, and the patient recently completed the first 21 days of ibrance and is currently on her off week. She is scheduled to receive the first dose of faslodex in the office next week. When she came into the ER yesterday she had chest x-ray performed that shows bilateral pleural effusions. Patient was last here at our hospital from April 03 - April 05, 2017 for similar presentation of pleural effusions and shortness of breath. She underwent a thoracentesis of the left pleura that removed 1.4 L and currently feels better. No fevers or chills. Past Medical History As above Past Surgical History Past Surgical Hx: other (Left breast mastectomy) Family History Significant Family History: no pertinent family hx Social History Alcohol Use: none Smoking Status: Never smoker Drug Use: none Exam/Review of Systems Vital Signs Vitals Vital Signs Date Time Temp Pulse Resp B/P Pulse Ox O2 Delivery O2 Flow Rate FiO2 05/09/17 07:43 98.4 83 18 100/62 98 05/08/17 17:35 Room Air 05/08/17 16:49 3.0 Intake and Output 05/08/17 05/08/17 05/09/17 15:00 23:00 07:00 Intake Total 150 ml 240 ml Balance 150 ml 240 ml Exam Constitutional: alert, oriented Head: normocephalic Neck: supple Respiratory: crackles/rales (right base) Cardiovascular: regular rate and rhythm Musculoskeletal: nl extremities to inspection Neurological: FREEZER UNLOADER II-XII intact Results Result Diagram: 05/09/17 0500 05/09/17 0500 Results 24 hrs Laboratory Tests Test 05/09/17 05:00 White Blood Count 1.8 L Red Blood Count 4.13 L Hemoglobin 11.7 L Hematocrit 34.5 L Mean Corpuscular Volume 83.5 Mean Corpuscular Hemoglobin 28.3 L Mean Corpuscular Hemoglobin Concent 33.9 Red Cell Distribution Width 13.7 Platelet Count 159 Mean Platelet Volume 9.5 Neutrophils % 32.3 L Lymphocytes % 62.3 H Monocytes % 4.9 Eosinophils % 0.0 Basophils % 0.5 Nucleated Red Blood Cells % 0.0 Neutrophils # 0.6 L Lymphocytes # 1.1 Monocytes # 0.1 L Eosinophils # 0.0 Basophils # 0.0 Nucleated Red Blood Cells # 0.0 Sodium Level 144 Potassium Level 3.4 L Chloride Level 102 Carbon Dioxide Level 26 Anion Gap 19 H Blood Urea Nitrogen 21 H Creatinine 0.77 Glucose Level 92 Hemoglobin A1c 6.2 H Calcium Level 9.2 Phosphorus Level 4.9 Magnesium Level 1.9 Triglycerides Level 71 Cholesterol Level 160 LDL Cholesterol, Calculated 97 HDL Cholesterol 49 Cholesterol/HDL Ratio 3.2 Thyroid Stimulating Hormone (TSH) 0.875 Medications Medications Current Medications Ondansetron HCl (Zofran Inj) 4 mg Q6H PRN IV NAUSEA AND/OR VOMITING; Start at 14:30 Acetaminophen (Tylenol Tab) 650 mg Q6H PRN PO PAIN LEVEL 1-3 OR FEVER; Start at 14:30 Acetaminophen/ Hydrocodone Bitart ([place] (5/325)) 1 tab Q6H PRN PO MODERATE PAIN LEVEL 4-6; Start 05/08/17 at 14:30 Morphine Sulfate (morphine) 2 mg Q4H PRN IV SEVERE PAIN LEVEL 7-10; Start 05/08 at 14:30 Docusate Sodium (Colace) 100 mg Q12H PRN PO CONSTIPATION; Start 05/08/17 at 14: 30 Magnesium Hydroxide (Milk Of Mag) 30 ml DAILY PRN PO CONSTIPATION; Start at 14:30 Sodium Biphosphate/ Sodium Phosphate (Fleet Enema) 133 ml DAILY PRN [place] CONSTIPATION; Start 05/08/17 at 14:30 Pantoprazole (Protonix Iv) 40 mg DAILY@06 IV Last administered on 05/09/17 05: 46; Admin Dose 40 MG; Start 05/09/17 at 06:00 Heparin Sodium (Porcine) (Heparin (5000 Units/0.5 ml)) 5,000 unit Q12 SC Last administered on 05/09/17 09:35; Admin Dose 5,000 UNIT; Start 05/08/17 at 21:00 Lorazepam 0.5 mg 0.5 mg Q6H PRN IV ANXIETY; Start 05/08/17 at 14:30 Levofloxacin/ Dextrose (Levaquin 750 Mg/ D5W 150 ml (Pmx)) 150 ml @ 100 mls/hr Q24H IVPB Last administered on 05/08/17 16:46; Admin Dose 100 MLS/HR; Start at 15:25 Hydralazine HCl (Apresoline) 10 mg Q6H PRN IV ELEVATED BLOOD PRESSURE; Start at 14:30 Nitroglycerin (Nitroglycerin (Sl Tab) 0.4 Mg) 1 tab Q5M PRN SL ANGINA; Start at 14:30 Capecitabine (Xeloda) 500 mg BID PO ; Start 05/08/17 at 21:00 Mirtazapine (Remeron) 15 mg HS PO Last administered on 05/08/17 21:39; Admin Dose 15 MG; Start 05/08/17 at 21:00 Oxycodone HCl (Roxicodone) 5 mg Q4H PRN PO PAIN Last administered on 05/08/17 20:48; Admin Dose 5 MG; Start 05/08/17 at 14:30 Miscellaneous Information 125 mg DAILY PO ; Start 05/09/17 at 09:00; Status UNV Miscellaneous Information (*Order Clarification Bulletin) Palbociclib (Ibrance) 125 MG, PLEASE H... Q8H XX ; Start 05/08/17 at 15:00 TOKACEY MD May 09, 2017 14:28
--- NOTE | 2017-05-09 19:10 | DS ---
DATE OF ADMISSION: 05/08/2017 DATE OF DISCHARGE: 05/09/2017 HOSPITAL COURSE: This is a 51-year-old female originally admitted on 05/08/2017, being discharged home on 05/09/2017. The patient came in with shortness of breath symptoms. She has a prior history of metastatic breast cancer with recurrent pleural effusions. She was admitted to med-surg floor. She underwent thoracentesis on the left side of her chest with 1.4 L removed. Over the course of the hospital stay, her breathing symptoms improved. She was able to ambulate and tolerate a p.o. diet. She was off of her chemotherapy medicine this week, as she does take oral chemotherapy medicines at home for her metastatic breast cancer, and she was evaluated by the hematology/oncology doctor while she was here in the hospital. Because her vital signs are stable and she has had no fevers and her labs are stable, she will be discharged home today in improved condition. DISCHARGE MEDICATIONS: 1. Ventolin HFA 2 puffs inhaled q.6 hours. 2. Xeloda 500 mg b.i.d. 3. Mirtazapine 50 mg nightly. 4. Oxycodone IR 5 mg q.4 p.r.n. 5. Ibrance 125 mg daily. FOLLOWUP: She will need to follow up with hematology/oncology doctor and primary care doctor in the clinic in the next 1 to 2 weeks. FINAL DIAGNOSES: 1. Shortness of breath secondary to pleural effusions. 2. Recurrent pleural effusions secondary to metastatic breast cancer. 3. Metastatic breast cancer involving her bones, pleura, and lymph nodes, now on ER/FL-positive HER2-negative. Time spent to discharge the patient, 40 minutes. Dictated By: Abdoulaye Topete MD /juan m/kimber /Document#: [id number]
== END 2017-05-09 15:00 | disposition home or self-care (01) | DRG 598 ==
LOC: E/R 09:05 → MS1 11:30
PROVIDERS: ADMIT Hospitalist; ATTEND Hospitalist
PROC: 0W9B3ZZ Drainage of Left Pleural Cavity, Percutaneous Approach (ICD-10-PCS; principal; 2017-05-08)
DX: C50.912 Malignant neoplasm of unspecified site of left female breast (principal); C77.9 Secondary and unspecified malignant neoplasm of lymph node, unspecified; J91.0 Malignant pleural effusion; C79.51 Secondary malignant neoplasm of bone; Z17.0 Estrogen receptor positive status [ER+]
CPT/HCPCS: 32555; 36415; 36600; 71010; 80048; 80053; 80061; 82803; 83036; 83690; 83735; 83880; 84100; 84439; 84443; 84484; 85025; 85610; 85730; 93005; 96365; 96375; 97162; C9113; J1644; J1885; J1940; J1956

== ENCOUNTER 2017-08-27 14:08 | Inpatient (IN) | payer OTHER ==
[~2017-08-27] VITALS: Ht 121.9 cm; Wt 55.8 kg
[2017-08-27 14:51] VITALS: Ht 121.9 cm; Wt 55.8 kg
[2017-08-27 18:06] LABS: HEMATOCRIT 33.5 % (37.0-47.0); HEMOGLOBIN 11.4 g/dl (12.0-16.0); MEAN CORPUSCULAR HEMOGLOBIN 32.9 pg (29.0-33.0); MEAN CORPUSCULAR VOLUME 96.5 fl (82.0-101.0); MEAN PLATELET VOLUME 9.5 fl (7.4-10.4); PLATELET COUNT 209 10^3/UL (140-415); RED BLOOD COUNT 3.47 10^6/ul (4.20-5.40); RED CELL DISTRIBUTION WIDTH 17.4 % (11.5-14.5)
[2017-08-27 18:15] LABS: POSITIVE DIFF @See below
[2017-08-27 18:18] LABS: INR 1.02; PROTIME 13.4 Sec (12.2-14.2)
[2017-08-27 18:19] LABS: PARTIAL THROMBOPLASTIN TIME 25.6 Sec (25.0-35.0)
[2017-08-27 18:22] LABS: ALANINE AMINOTRANSFERASE 20 IU/L (13-69); ALBUMIN 4.5 g/dl (3.3-4.9); ALBUMIN/GLOBULIN RATIO 1.18; ALKALINE PHOSPHATASE 69 IU/L (42-121); ANION GAP 17 (8-16); ASPARTATE AMINO TRANSFERASE 27 IU/L (15-46); BILIRUBIN,INDIRECT 0.5 mg/dl (0-1.1); BILIRUBIN,TOTAL 0.5 mg/dl (0.2-1.3); BLOOD UREA NITROGEN 17 mg/dl (7-20); CARBON DIOXIDE 26 mmol/L (21-31); CHLORIDE 106 mmol/L (97-110); GLUCOSE 96 mg/dl (70-220); POTASSIUM 3.9 mmol/L (3.5-5.1); SODIUM 145 mmol/L (135-144); TOTAL PROTEIN 8.3 g/dl (6.1-8.1)
--- NOTE | 2017-08-27 18:32 | RADRPT ---
PROCEDURE: XR Chest. CLINICAL INDICATION: Shortness of breath TECHNIQUE: Single frontal view of the chest was obtained COMPARISON: 03/13/2017 FINDINGS: The heart and mediastinum are within normal limits. There is no pneumothorax. There is a right chest wall port in place. There is a moderate to large left pleural effusion and small to moderate right pleural effusion. RPTAT: AA IMPRESSION: Moderate to lower left pleural effusion and small to moderate right pleural effusion. .Javier Real MD, MD Date Time Electronically viewed and signed by .Javier Real MD, MD on 08/27/2017 18:31 .S/
[2017-08-27 18:33] LABS: TROPONIN-I < 0.012 ng/ml (0.00-0.12)
[2017-08-27 18:52] LABS: ANISOCYTOSIS 3+ (0-0); EOSINOPHILS % (M) 2 % (0-7); GIANT THROMBO% (M) 1 % (0-0); MONOCYTES % (M) 7 % (0-11); PLATELET ESTIMATE NORMAL
--- NOTE | 2017-08-27 19:26 | ERD ---
ER Documentation Chief Complaint Chief Complaint pt sent from dr. walker for evaluation; sob x 1 week HPI This is a 51-year-old female with a history of breast cancer was sent by Dr. walker for bilateral pleural effusions. The patient states she is having a hard time breathing when she walks starting to progressively get worse over the past week where she gets some mild shortness of breath even at rest. She is not having any fever but she does have a nonproductive occasional cough no chest pain no abdominal pain vomiting diarrhea. ROS All systems reviewed and are negative except as per history of present illness. Medications Home Meds Reported Medications Mirtazapine* (Mirtazapine*) 15 Mg Tablet, 15 MG PO HS, TAB 04/22/17 Albuterol Sulfate* (Ventolin HFA*) 18 Gm Hfa.aer.ad, 2 PUFF INHALATION Q6H, #1 INHALER 04/22/17 Capecitabine* (Xeloda*) 500 Mg Tablet, 500 MG PO BID, TAB 04/22/17 Palbociclib (Ibrance) 125 Mg Capsule, 125 MG PO DAILY, CAP 04/22/17 Oxycodone Hcl* (IR) (Roxicodone*) 5 Mg Tab, 5 MG PO Q4H Y for PAIN, TAB 04/03/17 Allergies Allergies: Coded Allergies: No Known Allergy (Verified , 05/08/17) PMhx/Soc History of Surgery: Yes (thoracentesis; left mastectomy (2009)) Anesthesia Reaction: No Hx Neurological Disorder: No Hx Respiratory Disorders: Yes (SOB) Hx Cardiac Disorders: No Hx Psychiatric Problems: No Hx Miscellaneous Medical Probl: Yes (see PT note) Hx Alcohol Use: No Hx Substance Use: No Hx Tobacco Use: No Smoking Status: Never smoker FmHx Family History: No coronary disease Physical Exam Vitals Vital Signs Date Time Temp Pulse Resp B/P Pulse Ox O2 Delivery O2 Flow Rate FiO2 08/27/17 18:30 87 24 130/90 95 Room Air 08/27/17 14:51 99.3 105 16 117/78 96 Physical Exam Const: Well-developed, well-nourished Head: Atraumatic, normocephalic Eyes: Normal Conjunctiva, PERRLA, EOMI, normal sclera, no nystagmus ENT: Normal External Ears, Nose and Mouth, moist mucus membranes. Neck: Full range of motion. No meningismus, no lymphadenopathy. Resp: No increased work of breathing with bilateral decreased breath sounds at the bases left more than right Cardio: Regular rate and rhythm, no murmurs, S1 S2 present Abd: Soft, non tender x 4, non distended. Normal bowel sounds, no guarding or rebound, no pulsitile abdominal masses or bruits Skin: No petechiae or rashes, no ecchymosis , no maculopapular rash Back: No midline or flank tenderness Ext: No cyanosis, or edema, FROM x 4, normal inspection, neurovascularly intact x 4 Neur: Awake and alert, STR 5/5 x 4, sensation intact x 4, no focal findings, cerebellum intact Psych: Normal Mood and Affect Result Diagram: 08/27/17174908/27/171749 Results 24 hrs Laboratory Tests Test 08/27/17 17:50 White Blood Count 3.010^3/ul Red Blood Count 3.4710^6/ul Hemoglobin 11.4g/dl Hematocrit 33.5% Mean Corpuscular Volume 96.5fl Mean Corpuscular Hemoglobin 32.9pg Mean Corpuscular Hemoglobin Concent 34.0g/dl Red Cell Distribution Width 17.4% Platelet Count 15795^3/UL Mean Platelet Volume 9.5fl Neutrophils % % Segmented Neutrophils % (Manual) 61% Band Neutrophils % (Manual) 3% Lymphocytes % % Lymphocytes % (Manual) 27% Monocytes % % Monocytes % (Manual) 7% Eosinophils % % Eosinophils % (Manual) 2% Basophils % % Nucleated Red Blood Cells % 0.0/100WBC Neutrophils # 10^3/ul Neutrophils # (Manual) 1.810^3/ul Band Neutrophils # 0.010^3/ul Absolute Lymphocytes (Manual) 0.810^3/ul Lymphocytes # 10^3/ul Monocytes # 10^3/ul Absolute Monocytes (Manual) 0.210^3/ul Eosinophils # 10^3/ul Basophils # 10^3/ul Nucleated Red Blood Cells # 10^3/ul Platelet Estimate NORMAL Giant Platelets 1% Anisocytosis 3+ Prothrombin Time 13.4Sec Prothrombin Time Ratio 1.0 INR International Normalized Ratio 1.02 Activated Partial Thromboplast Time 25.6Sec Sodium Level 145mmol/L Potassium Level 3.9mmol/L Chloride Level 106mmol/L Carbon Dioxide Level 26mmol/L Anion Gap 17 Blood Urea Nitrogen 17mg/dl Creatinine 0.70mg/dl Glucose Level 96mg/dl Calcium Level 9.0mg/dl Total Bilirubin 0.5mg/dl Direct Bilirubin 0.00mg/dl Indirect Bilirubin 0.5mg/dl Aspartate Amino Transf (AST/SGOT) 27IU/L Alanine Aminotransferase (ALT/SGPT) 20IU/L Alkaline Phosphatase 69IU/L Troponin I < 0.012ng/ml B-Type Natriuretic Peptide 277PG/ML Total Protein 8.3g/dl Albumin 4.5g/dl Globulin 3.80g/dl Albumin/Globulin Ratio 1.18 Procedures/MDM PROCEDURE: XR Chest. CLINICAL INDICATION: Shortness of breath TECHNIQUE: Single frontal view of the chest was obtained COMPARISON: 03/13/2017 FINDINGS: The heart and mediastinum are within normal limits. There is no pneumothorax. There is a right chest wall port in place. There is a moderate to large left pleural effusion and small to moderate right pleural effusion. RPTAT: AA IMPRESSION: Moderate to lower left pleural effusion and small to moderate right pleural effusion. .Javier Real MD, MD Date Time Electronically viewed and signed by .Javier Real MD, MD on 08/27/2017 18: 31 .S/ CC: RANDY ANDRES DO Patient has bilateral pleural effusions moderate on the left smaller on the right. Patient is symptomatic. Will admit the patient's to the hospital for likely drainage of pleural fluid. BNP is 277, white count is 3.4. No signs of consolidation chest x-ray. Page Dr. dean for admission EKG: Rate/Rhythm: Normal Sinus Rhythm,NL intervals QRS, ST, QT: NORMAL WI, QRS, QT] Impression: NORMAL EKG Departure Diagnosis: Primary Impression: Bilateral pleural effusion Condition: Stable MIRNATRINIRANDY DO Aug 27, 2017 19:26
[2017-08-27] MEDS ORDERED: ACETAMINOPHEN 325 MG TAB PO PRN (19:30)
[2017-08-27] MEDS ORDERED: ONDANSETRON 4 MG INJ IV PRN ×2 (19:30→21:00)
[2017-08-27 20:38] VITALS: BP 137/90; RESP 18
[2017-08-27] MEDS ORDERED: morphine 2 MG INJ IV PRN (21:00)
[2017-08-27] MEDS ORDERED: ALBUTEROL 18 GM INHALER INH PRN (21:30)
[2017-08-27] MEDS ORDERED: ALBUTEROL HFA 8 GM INHALER INH PRN (22:00)
[2017-08-28 02:14] VITALS: BP 98/59; RESP 18
[2017-08-28 06:01] LABS: HEMATOCRIT 30.5 % (37.0-47.0); HEMOGLOBIN 10.3 g/dl (12.0-16.0); MEAN CORPUSCULAR HEMOGLOBIN 32.5 pg (29.0-33.0); MEAN CORPUSCULAR HGB CONC 33.8 g/dl (32.0-37.0); MEAN CORPUSCULAR VOLUME 96.2 fl (82.0-101.0); MEAN PLATELET VOLUME 9.9 fl (7.4-10.4); PLATELET COUNT 183 10^3/UL (140-415); RED BLOOD COUNT 3.17 10^6/ul (4.20-5.40); WHITE BLOOD COUNT 2.4 10^3/ul (4.8-10.8)
[2017-08-28 06:03] LABS: POSITIVE DIFF @See below
[2017-08-28 06:35] LABS: CALCIUM 8.5 mg/dl (8.4-10.2); CREATININE 0.67 mg/dl (0.44-1.00); POTASSIUM 3.5 mmol/L (3.5-5.1)
[2017-08-28] MEDS: oxyCODONE 5 MG TAB PO PRN ×2 (06:59→19:41)
[2017-08-28 07:30] VITALS: BP 115/69; RESP 18
[2017-08-28] MEDS ORDERED: PALBOCICLIB 125 MG PO SCH (09:00)
[2017-08-28 09:13] LABS: ANISOCYTOSIS 2+ (0-0); BASOPHILS % (M) 2 % (0-2); EOSINOPHILS % (M) 1 % (0-7); GIANT THROMBO% (M) 2 % (0-0); MONOCYTES % (M) 5 % (0-11); PLATELET ESTIMATE NORMAL
--- NOTE | 2017-08-28 12:19 | HP ---
DATE OF ADMISSION: 08/27/2017 CHIEF COMPLAINT: Shortness of breath for the last week and chest pain. Patient was sent from Dr. Hayes, hematology/oncology office, for evaluation to the Emergency Room. HISTORY OF PRESENT ILLNESS: The patient is a 51-year-old, unfortunate female with history of metastatic breast cancer with involvement of bones, pleural and lymph nodes. The patient follows by Dr. Hayes status post chemotherapy, last IV chemotherapy was 2 months ago. The patient is curre ntly on oral chemotherapy agents. The patient also has a history of bilateral pleural effusions, st atus post paracentesis, last one couple of months ago. The patient developed shortness of breath an d chest pain with no radiation. The patient described the chest pain as 8/10. The patient denies a ny fever, complaints of chills. The patient denies any nausea, vomiting, diarrhea. In evaluation i n the Emergency Room, the patient underwent a chest x-ray which revealed moderate to large left pleu ral effusion and small to moderate right pleural effusion. The patient's troponin was negative on a dmission and the patient was given breathing treatment, Zofran and Tylenol and patient is admitted f or further evaluation and management. PAST MEDICAL HISTORY: Per HPI. PAST SURGICAL HISTORY: Status post left mastectomy in 2009, status post right Perm-A-Cath placement and status post thoracentesis. FAMILY HISTORY: Negative for breast or ovarian cancer. SOCIAL HISTORY: Patient lives at home with her family. The patient denies any tobacco use, denies any alcohol use, denies any illicit drug use. ALLERGIES: NO KNOWN ALLERGIES. HOME MEDICATIONS: Include: 1. Mirtazapine. 2. Ventolin. 3. Xeloda. 4. Ibrance. 5. Roxicodone. REVIEW OF SYSTEMS: A 12-point review of systems is negative unless what mentioned in the HPI. PHYSICAL ASSESSMENT: GENERAL: Well-developed, well-nourished female in no acute distress. VITAL SIGNS: Temperature is 98.9, pulse is 88, blood pressure 115/69, respiratory rate 18, oxygen s aturation 93% on 2 liters nasal cannula. HEENT: Head is atraumatic, normocephalic. Pupils equal and reactive to light and accommodation. O ral mucosa is pink and moist. NECK: Supple, no cervical lymphadenopathy, no thyromegaly. LUNGS: Slightly diminished at the bases. Clear in the upper lobes. There is no rhonchi, wheezes n oted. CARDIOVASCULAR: Normal S1, S2. No murmurs, gallops, clicks, rubs noted. CHEST: There is a right chest Perm-A-Cath. GASTROINTESTINAL: Abdomen is round, soft, nondistended, nontender. There is no guarding, no reboun d tenderness. Bowel sounds present. EXTREMITIES: No edema, clubbing, cyanosis. SKIN: There is no rash, petechiae noted. NEUROLOGIC: Patient is awake, alert and oriented x4. No focal deficits noted. Motor strength 5/5 in all extremities. LABORATORY DATA: On admission, CBC: White blood cells 3.0, hemoglobin is 11.4, hematocrit 33.5, pl atelets 209. Chemistry: Sodium is 145, potassium 3.9, chloride 106, carbon dioxide 26, anion gap 1 7, BUN is 17, creatinine 0.7. AST is 27, ALT is 20, alkaline phosphatase 69. BNP is 277. Troponin less than 0.02. ASSESSMENT AND PLAN: 1. Bilateral pleural effusion, possibly a malignant pleural effusion. We will get an order for tho racentesis. Continue oxygen supplementation and bronchodilators. 2. Rule out acute coronary syndrome. We will obtain cardiac enzymes, also 2D echo evaluation of le ft ventricular function. 3. Metastatic breast cancer. Dr. Hayes will be following in hematology/oncology consultation. We will continue sequential compression device for deep venous thrombosis prophylaxis and Pepcid for pe ptic ulcer disease prophylaxis. Further recommendations based on clinical course. Plan of care dis cussed with Dr. Schultz. Dictated By: FANI MURRAY [employer] FOUNDER for CÉSAR SCHULTZ MD SR/NTS Conf#: [id number] DID#: [id number]
[2017-08-28 13:21] LABS: CREATINE KINASE 40 IU/L (23-200)
[2017-08-28 13:35] VITALS: BP 103/61; RESP 18
[2017-08-28 13:35] LABS: CK-MB < 0.22 ng/ml (0.0-2.4); TROPONIN-I < 0.012 ng/ml (0.00-0.12)
[2017-08-28] MEDS ORDERED: LIDOCAINE 1% (MPF) 5 ML VIAL ONE (14:33)
--- NOTE | 2017-08-28 15:08 | RADRPT ---
PROCEDURE: US guided left thoracentesis. CLINICAL INDICATION: Shortness of breath. Left pleural effusion. TECHNIQUE: Prior to the procedure, informed consent was obtained. The risks, benefits, and alternatives were e xplained to the patient or the patient's family, including but not limited to bleeding, infection, p ain, visceral or vascular damage, shock, pneumothorax, chest tube placement, air embolism, and . The patient or the patient's family understood the risks and the alternatives and wished to proce ed with the study. Informed written consent was obtained. A procedural pause was performed. The patient's name, date of , and procedure to be performed were verified. Ultrasound of the left hemithorax was performed in the axial and sagittal planes. A left pleural eff usion is noted. Utilizing ultrasound guidance, optimal location for entry to the pleural cavity was ascertained. The overlying skin was prepped and draped in the usual sterile fashion. Approximately 10 ml of 1% Xylocaine was injected locally for pain control. Using ultrasound guidance, a 5-Divehi Yueh catheter was introduced into the left pleural space without difficulty. Fluid was aspirated. COMPARISON: Chest x-ray dated 08/27/2017. FINDINGS: Initial ultrasound demonstrates fluid in the left pleural space. Approximately 1.5 liters of serous fluid was aspirated and discarded. IMPRESSION: 1. Satisfactory ultrasound-guided left thoracentesis. RPTAT: QQ .Lawrence Reynoso MD, Date Time Electronically viewed and signed by .Lawrence Reynoso MD, on 08/28/2017 15:07 .R/
--- NOTE | 2017-08-28 15:10 | RADRPT ---
PROCEDURE: XR Chest 1 View. CLINICAL INDICATION: Status post left thoracentesis. TECHNIQUE: AP view of the chest was obtained. COMPARISON: Yesterday FINDINGS: The cardiomediastinal silhouette is within normal limits. There has been interval decrease in left p leural fluid with associated improved aeration of the left lower lobe. Small left pleural effusion w ith scattered atelectasis in the left lower lobe remains. Moderate right pleural effusion with assoc iated lower lung atelectasis/consolidation is unchanged. Central pulmonary vascular congestion and i nterstitial prominence in both lungs. Right-sided chest port is stable. Surgical clips are seen in t he left axilla. The osseous structures are unchanged. IMPRESSION: Interval decrease in left pleural effusion. Mild residual with scattered atelectasis in the left low er lobe remains. No visualized pneumothorax. Stable moderate right pleural effusion with associated lower lung atelectasis/consolidation. Stable central pulmonary vascular congestion and mild interstitial prominence in both lungs. RPTAT: AA .Manuel Tang MD, MD Date Time Electronically viewed and signed by .Manuel Tang MD, on 08/28/2017 15:10 .P/
[2017-08-28 18:43] LABS: CREATINE KINASE 41 IU/L (23-200)
[2017-08-28 18:57] LABS: CK-MB 0.25 ng/ml (0.0-2.4)
[2017-08-28 19:00] LABS: TROPONIN-I < 0.012 ng/ml (0.00-0.12)
[2017-08-28 19:46] VITALS: BP 94/57; RESP 18
[2017-08-28] MEDS: MIRTAZAPINE 15 MG TAB PO SCH (20:53)
[2017-08-29 01:54] VITALS: BP 91/57; RESP 18
[2017-08-29 05:55] LABS: HEMATOCRIT 30.6 % (37.0-47.0); HEMOGLOBIN 10.3 g/dl (12.0-16.0); MEAN CORPUSCULAR HEMOGLOBIN 32.5 pg (29.0-33.0); MEAN CORPUSCULAR HGB CONC 33.7 g/dl (32.0-37.0); MEAN CORPUSCULAR VOLUME 96.5 fl (82.0-101.0); MEAN PLATELET VOLUME 9.7 fl (7.4-10.4); PLATELET COUNT 171 10^3/UL (140-415); RED BLOOD COUNT 3.17 10^6/ul (4.20-5.40); RED CELL DISTRIBUTION WIDTH 16.5 % (11.5-14.5); WHITE BLOOD COUNT 2.1 10^3/ul (4.8-10.8)
[2017-08-29 05:57] LABS: POSITIVE DIFF @See below
[2017-08-29 06:12] LABS: CALCIUM 8.8 mg/dl (8.4-10.2); CREATININE 0.7 mg/dl (0.44-1.00); POTASSIUM 3.6 mmol/L (3.5-5.1)
[2017-08-29 07:30] VITALS: BP 92/55; RESP 18
[2017-08-29 07:46] LABS: ANISOCYTOSIS 2+ (0-0); BASOPHILS % (M) 2 % (0-2); EOSINOPHILS % (M) 5 % (0-7); GIANT THROMBO% (M) 4 % (0-0); MONOCYTES % (M) 1 % (0-11); PLATELET ESTIMATE NORMAL; REACTIVE LYMPHOCYTES% (M) 3 % (0-0)
[2017-08-29] MEDS: FAMOTIDINE 20 MG TAB PO SCH (08:43)
[2017-08-29] MEDS: oxyCODONE 5 MG TAB PO PRN ×2 (08:56→22:08)
[2017-08-29] MEDS ORDERED: INFLUENZA VIRUS VACCINE 0.5 ML (DISPENSING) IM* ONE (09:00)
[2017-08-29 14:15] VITALS: BP 91/56; RESP 19
--- NOTE | 2017-08-29 19:19 | PN ---
Date/Time of Note Date/Time of Note DATE: 08/29/17 TIME: 19:05 Assessment/Plan Lines/Catheters IV Catheter Type (from [facility]): Saline Lock Assessment/Plan Assessment/Plan 1. Bilateral pleural effusion, possibly a malignant pleural effusion. - SP thoracentesis- 1. 5 L removed - Continue oxygen supplementation and bronchodilators. 2. Rule out acute coronary syndrome. We will obtain cardiac enzymes, also 2D echo evaluation of left ventricular function. 3. Metastatic breast cancer. Dr. Hayes will be following in hematology/ oncology consultation. We will continue sequential compression device for deep venous thrombosis prophylaxis Pepcid for peptic ulcer disease prophylaxis. Further recommendations based on clinical course. Plan of care discussed with Dr. Schultz. Exam/Review of Systems Vital Signs Vitals Vital Signs Date Time Temp Pulse Resp B/P Pulse Ox O2 Delivery O2 Flow Rate FiO2 08/29/17 14:15 98.0 84 19 91/56 95 08/28/17 17:50 2.0 08/28/17 16:09 Nasal Cannula Intake and Output 08/28/17 08/28/17 08/29/17 15:00 23:00 07:00 Intake Total 1080 ml 300 ml Output Total 1400 ml 1000 ml Balance -320 ml -700 ml Exam Constitutional: alert, well developed Respiratory: diminished breath sounds Cardiovascular: nl pulses, other (s1s2) Gastrointestinal: soft Musculoskeletal: nl extremities to inspection Results Result Diagram: 08/29/1752108/29/17521 Results 24 hrs Laboratory Tests Test 08/29/17 05:22 White Blood Count 2.1 L Red Blood Count 3.17 L Hemoglobin 10.3 L Hematocrit 30.6 L Mean Corpuscular Volume 96.5 Mean Corpuscular Hemoglobin 32.5 Mean Corpuscular Hemoglobin Concent 33.7 Red Cell Distribution Width 16.5 H Platelet Count 171 Mean Platelet Volume 9.7 Neutrophils % Segmented Neutrophils % (Manual) 55 Band Neutrophils % (Manual) 4 Lymphocytes % Lymphocytes % (Manual) 30 Reactive Lymphocytes % (Manual) 3 H Monocytes % Monocytes % (Manual) 1 Eosinophils % Eosinophils % (Manual) 5 Basophils % Basophils % (Manual) 2 Nucleated Red Blood Cells % 0.0 Neutrophils # Neutrophils # (Manual) 1.2 L Band Neutrophils # 0.0 Absolute Lymphocytes (Manual) 0.6 L Lymphocytes # Reactive Lymphocytes # 0.0 Monocytes # Absolute Monocytes (Manual) 0.0 L Eosinophils # Basophils # Basophils # (Manual) 0.0 Nucleated Red Blood Cells # Platelet Estimate NORMAL Giant Platelets 4 H Anisocytosis 2+ Macrocytosis 2+ Sodium Level 140 Potassium Level 3.6 Chloride Level 105 Carbon Dioxide Level 29 Anion Gap 10 # Blood Urea Nitrogen 14 Creatinine 0.70 Glucose Level 99 Calcium Level 8.8 Medications Medications Current Medications Morphine Sulfate (morphine) 2 mg Q4H PRN IV PAIN Last administered on 21:44; Admin Dose 2 MG; Start 08/27/17 at 21:00 Ondansetron HCl (Zofran Inj) 4 mg Q6H PRN IV NAUSEA AND/OR VOMITING; Start 08/27/17 at 21:00 Mirtazapine (Remeron) 15 mg HS PO Last administered on 08/28/17 20:53; Admin Dose 15 MG; Start 08/28/17 at 21:00 Oxycodone HCl (Roxicodone) 5 mg Q4H PRN PO PAIN Last administered on 08/29/17 08:56; Admin Dose 5 MG; Start 08/27/17 at 21:30 Miscellaneous Information 125 mg DAILY PO ; Start 08/28/17 at 09:00; Status UNV Famotidine (Pepcid) 20 mg DAILY PO Last administered on 08/29/17 08:43; Admin Dose 20 MG; Start 08/29/17 at 09:00 KERLINE BAEZ Aug 29, 2017 19:18
[2017-08-29 19:36] VITALS: BP 106/67; RESP 18
[2017-08-29] MEDS: MIRTAZAPINE 15 MG TAB PO SCH (20:35)
--- NOTE | 2017-08-29 22:12 | RADRPT ---
Echocardiogram Report Patient Name: TRINI CARRERA Gender: Female Date: 1965 Study Date: 29-Aug-2017 Civil Structural Engineer: [facility] Location: [id number] Ref. Physician: FANI MURRAY Quality: Adequate Procedures: Transthoracic echocardiogram with complete 2D, M-Mode, and doppler examination. Indications: Evaluate Left Ventricular function. 2D/M Mode Doppler Measurement Value Normal Ranges Measurement Value Normal Ranges LVIDd 2D 4.1 3.5 - 5.6 cm AV Peak Alejandro 1.4 m/sec LVIDs 2D 2.5 2.1 - 4.1 cm AV Peak PG 8.4 mmHg LVPWd 2D 0.8 0.6 - 1.1 cm LVOT Peak Alejandro 1.1 m/sec IVSd 2D 0.8 0.6 - 1.1 cm LVOT Peak PG 5.3 mmHg AoR Diam 2D 2.4 2.0 - 3.7 cm MV E Peak Alejandro 0.8 m/sec EDV 2D 73.8 cm3 MV A Peak Alejandro 0.6 m/sec ESV 2D 16.6 cm3 MV E/A 1.3 LA Dimen 2D 2.9 2.3 - 4.0 cm MV Decel Time 177 msec MV Decel [place] 5 MV E/A 1.3 TR Peak Alejandro 2.4 m/sec TR Peak PG 23.5 mmHg RVSP 27.0 mmHg Findings Left Ventricle: Lower limits of normal systolic function. Normal left ventricular cavity size. Normal left ventricular wall thickness. Ejection fraction is visually estimated at 50 %. Tissue Doppler/Mitral Doppler indices are within normal limits. Right Ventricle: Normal right ventricular size. Normal right ventricular systolic function. Left Atrium: The left atrium is normal in size. Right Atrium: The right atrium is normal in size. Mitral Valve: Normal appearance of the mitral valve. Mild mitral annular calcification. Trace mitral regurgitation. Aortic Valve: Normal appearance of the aortic valve. No significant aortic stenosis or insufficiency. Tricuspid Valve: Normal appearance of the tricuspid valve. Estimated peak PA systolic pressure 27 mmHg. There is trace tricuspid regurgitation. Pulmonic Valve: Normal pulmonic valve appearance. Pericardium: Normal pericardium with no significant pericardial effusion. Pleural effusion seen. Aorta: Normal aortic root. IVC: Normal size and normal respiratory collapse consistent with normal right atrial pressure. Conclusions 1.Lower limits of normal systolic function. Normal left ventricular cavity size. Normal left ventricular wall thickness. Ejection fraction is visually estimated at 50 %. Tissue Doppler/Mitral Doppler indices are within normal limits. 2.Normal appearance of the mitral valve. Mild mitral annular calcification. Trace mitral regurgitation. 3.Normal appearance of the tricuspid valve. Estimated peak PA systolic pressure 27 mmHg. There is trace tricuspid regurgitation. Electronically Signed By: Graeme Schwarz 29-Aug-2017 22:11:25 -0800 Patient Name: TRINI CARRERA Study Date: 29-Aug-2017 [id number]
[2017-08-30 02:21] VITALS: BP 82/52; RESP 18
[2017-08-30 03:30] VITALS: BP 91/58; PULSE 68
[2017-08-30 07:59] VITALS: BP 98/65; RESP 17
[2017-08-30] MEDS: FAMOTIDINE 20 MG TAB PO SCH (08:53)
[2017-08-30] MEDS: oxyCODONE 5 MG TAB PO PRN (12:27)
[2017-08-30 14:48] VITALS: BP 83/53; RESP 19
--- NOTE | 2017-09-01 20:43 | DS ---
Date/Time of Note Date/Time of Note DATE: 09/01/17 TIME: 20:40 Discharge Summary Admission/Discharge Info Admit Date/Time Aug 27, 2017 at 19:28 Discharge Date/Time Aug 30, 2017 at 18:15 Patient Condition: Stable Hospital Course - Bilateral pleural effusion L>R, possibly a malignant pleural effusion. S/p Left thoracentesis. - SOB 2 to #1, resolved. - Ruled out acute coronary syndrome. - Metastatic breast cancer. Dr. Hayes is following in hematology/oncology consultation. Home Meds Reported Medications Mirtazapine* (Mirtazapine*) 15 Mg Tablet, 15 MG PO HS, TAB 04/22/17 Albuterol Sulfate* (Ventolin HFA*) 18 Gm Hfa.aer.ad, 2 PUFF INHALATION Q6H, #1 INHALER 04/22/17 Palbociclib (Ibrance) 125 Mg Capsule, 125 MG PO DAILY, CAP 04/22/17 Oxycodone Hcl* (IR) (Roxicodone*) 5 Mg Tab, 5 MG PO Q4H Y for PAIN, TAB 04/03/17 Follow-up Plan f/up with Dr Hayes in 1-2 weeks. Primary Care Provider [facility] Time spent on discharge: > 30 minutes FANI MURRAY Sep 01, 2017 20:43
== END 2017-08-30 18:15 | disposition home or self-care (01) | DRG 598 ==
LOC: E/R 14:08 → MS2 19:28
PROVIDERS: ADMIT Internal Medicine; ATTEND Internal Medicine
PROC: 0W9B3ZZ Drainage of Left Pleural Cavity, Percutaneous Approach (ICD-10-PCS; principal; 2017-08-28)
DX: C50.919 Malignant neoplasm of unspecified site of unspecified female breast (principal); C79.51 Secondary malignant neoplasm of bone; J91.0 Malignant pleural effusion; C77.9 Secondary and unspecified malignant neoplasm of lymph node, unspecified; C78.2 Secondary malignant neoplasm of pleura
CPT/HCPCS: 36415; 71010; 76942; 80048; 80053; 82550; 82553; 83880; 84484; 85025; 85610; 85730; 90686; 93005; 93306; J2270

== ENCOUNTER 2017-09-14 13:44 | Emergency (ER) | payer OTHER ==
[~2017-09-14] VITALS: Ht 144.8 cm; Wt 53.7 kg
[~2017-09-14 13:44] MED LIST changes: -CAPE500T11 PO
[2017-09-14 13:51] VITALS: Ht 144.8 cm; Wt 53.7 kg
[2017-09-14 16:22] LABS: BASOPHIL # 0.1 10^3/ul (0.0-0.1); BASOPHILS % 1.3 % (0.0-2.0); EOSINOPHILS # 0.1 10^3/ul (0.0-0.5); HEMATOCRIT 35.9 % (37.0-47.0); HEMOGLOBIN 12.1 g/dl (12.0-16.0); LYMPHOCYTES # 1.5 10^3/ul (0.8-2.9); LYMPHOCYTES % 21.2 % (15.0-51.0); MEAN CORPUSCULAR HEMOGLOBIN 32.4 pg (29.0-33.0); MEAN CORPUSCULAR HGB CONC 33.7 g/dl (32.0-37.0); MEAN PLATELET VOLUME 9.2 fl (7.4-10.4); MONOCYTE # 0.5 10^3/ul (0.3-0.9); MONOCYTES % 6.5 % (0.0-11.0); NEUTROPHIL # 4.9 10^3/ul (1.6-7.5); NEUTROPHILS % 69.6 % (39.0-77.0); PLATELET COUNT 492 10^3/UL (140-415); RED BLOOD COUNT 3.74 10^6/ul (4.20-5.40); RED CELL DISTRIBUTION WIDTH 14.7 % (11.5-14.5)
--- NOTE | 2017-09-14 16:23 | RADRPT ---
PROCEDURE: XR Chest 1 View. CLINICAL INDICATION: Chest pain. TECHNIQUE: Single view of the chest was obtained. COMPARISON: DR STALEY 08/28/2017 FINDINGS: Heart borders are obscured by the opacities. Calcified atherosclerosis is noted in the aorta. Right -sided chest port is stable. Central pulmonary vascular congestion and interstitial prominence is se en in both lungs. Bilateral lower lung infiltrates, combined with moderate pleural effusions are freddie ntified. Surgical clips are identified in the left axilla. Osseous structures are intact. IMPRESSION: Calcified atherosclerosis in the aorta. Central pulmonary vascular congestion and interstitial prominence in both lungs. Bilateral lower lung infiltrates, combined with moderate pleural effusions. RPTAT: AA .Manuel Tang MD, MD Date Time Electronically viewed and signed by .Manuel Tang MD, on 09/14/2017 16:22 .P/
--- NOTE | 2017-09-14 16:24 | ERD ---
ER Documentation Chief Complaint Chief Complaint SOB with chest tightness x 4 days HPI Patient is an 51-year-old female who has a history of chronic pleural effusion is complaining of chest pain and shortness of breath that she has had for 4 days. She states it is constant and there are no alleviating or exacerbating factors. She states this feels the same as she usually feels. She denies any cardiac past medical history. She denies fever but states she has had a mild dry cough. Denies any nausea or vomiting. Denies any alcohol or drug use or smoking. No palpitations. ROS All systems reviewed and are negative except as per history of present illness. Medications Home Meds Reported Medications Mirtazapine* (Mirtazapine*) 15 Mg Tablet, 15 MG PO HS, TAB 04/22/17 Albuterol Sulfate* (Ventolin HFA*) 18 Gm Hfa.aer.ad, 2 PUFF INHALATION Q6H, #1 INHALER 04/22/17 Palbociclib (Ibrance) 125 Mg Capsule, 125 MG PO DAILY, CAP 04/22/17 Oxycodone Hcl* (IR) (Roxicodone*) 5 Mg Tab, 5 MG PO Q4H Y for PAIN, TAB 04/03/17 Allergies Allergies: Coded Allergies: No Known Allergy (Verified , 09/14/17) PMhx/Soc Medical and Surgical Hx: pt denies Medical Hx, pt denies Surgical Hx History of Surgery: Yes (LEFT MASTECTOMY,THORACENTESIS,MALIA CATH PLACEMENT.) Anesthesia Reaction: No Hx Neurological Disorder: No Hx Respiratory Disorders: Yes (BILATERAL PLEURAL EFFUSION, HX SOB) Hx Cardiac Disorders: No Hx Psychiatric Problems: No Hx Miscellaneous Medical Probl: No Hx Alcohol Use: No Hx Substance Use: No Hx Tobacco Use: No Smoking Status: Never smoker FmHx Family History: No diabetes Physical Exam Vitals Vital Signs Date Time Temp Pulse Resp B/P Pulse Ox O2 Delivery O2 Flow Rate FiO2 09/14/17 13:51 97.9 98 22 112/72 95 Physical Exam INITIAL VITAL SIGNS: Reviewed by me GENERAL: Awake, alert and oriented x 4, well appearing, nontoxic, speaking in full sentences. No acute distress HEAD: Atraumatic NECK: Supple. No masses. Full range of motion. No meningismus. No midline tenderness. RESPIRATORY: Clear to auscultation bilaterally. Symmetric chest wall rise. No wheezing or rales. No accessory muscle use. CV: Regular rate and rhythm. No murmurs, rubs, or gallops. ABDOMEN: Soft, non-distended. Nontender. Negative Bledsoe. Negative McBurneys point tenderness. No CVA tenderness bilaterally. No guarding. No rebound. EXTREMITIES: No clubbing or cyanosis. No edema. Moving all extremities normally. BACK: No midline tenderness to palpation. No step-offs. Result Diagram: 09/14/17 1613 09/14/17 1613 Results 24 hrs Laboratory Tests Test 09/14/17 16:13 White Blood Count 7.010^3/ul Red Blood Count 3.7410^6/ul Hemoglobin 12.1g/dl Hematocrit 35.9% Mean Corpuscular Volume 96.0fl Mean Corpuscular Hemoglobin 32.4pg Mean Corpuscular Hemoglobin Concent 33.7g/dl Red Cell Distribution Width 14.7% Platelet Count 94740^3/UL Mean Platelet Volume 9.2fl Neutrophils % 69.6% Lymphocytes % 21.2% Monocytes % 6.5% Eosinophils % 1.0% Basophils % 1.3% Nucleated Red Blood Cells % 0.0/100WBC Neutrophils # 4.910^3/ul Lymphocytes # 1.510^3/ul Monocytes # 0.510^3/ul Eosinophils # 0.110^3/ul Basophils # 0.110^3/ul Nucleated Red Blood Cells # 0.010^3/ul Sodium Level 141mmol/L Potassium Level 4.0mmol/L Chloride Level 103mmol/L Carbon Dioxide Level 25mmol/L Anion Gap 17 Blood Urea Nitrogen 15mg/dl Creatinine 0.62mg/dl Glucose Level 109mg/dl Calcium Level 9.2mg/dl Troponin I < 0.012ng/ml Procedures/MDM 51-year-old female is here complaining of shortness of breath and chest tightness for 4 days. Patients is alert, oriented, well appearing, and in no distress with normal vital signs. There is no fever, tachycardia, or tachypnea. The differential diagnosis includes but is not limited to acute coronary syndrome acute myocardial infarction, pericarditis, pulmonary embolism, aortic dissection, pneumonia, pleural effusion, pneumothorax, GERD, chest wall pain,, asthma, COPD, pneumonia, pulmonary embolus, pleural effusion, congestive heart failure, and others. Respiration rate is 22 otherwise vital signs are within normal limits. She is well-appearing in no distress. Her labs are all normal including troponin. Chest x-ray shows bilateral lower lung infiltrates combined with moderate pleural effusions. I reviewed these findings with Dr. Henderson and reviewed her previous medical records which show the same. These are all chronic problems. Both myself and Dr. Henderson evaluated the patient and we offered her admission but she stated she preferred to go home and she was advised to come back if she has any worsening of symptoms or any other concern. She was discharged with copies of all her labs and radiology reports that she can follow with primary care. Patient counseled regarding my diagnostic impression and care plan. Prior to discharge all questions answered. Pt agrees with treatment plan and understands strict return precautions. Pt is instructed to follow up with primary care provider within 24-48 hours. Precautionary instructions provided including instructions to return to the ER if not improving or for any worsening or changing symptoms or concerns. Departure Diagnosis: Primary Impression: Shortness of breath Additional Impression: Pleural effusion Condition: Stable STEVO MAXWELL PA-C Sep 14, 2017 16:24
[2017-09-14 16:40] LABS: ANION GAP 17 (8-16); BLOOD UREA NITROGEN 15 mg/dl (7-20); CALCIUM 9.2 mg/dl (8.4-10.2); CARBON DIOXIDE 25 mmol/L (21-31); CHLORIDE 103 mmol/L (97-110); CREATININE 0.62 mg/dl (0.44-1.00); GLUCOSE 109 mg/dl (70-220); SODIUM 141 mmol/L (135-144)
[2017-09-14 16:54] LABS: TROPONIN-I < 0.012 ng/ml (0.00-0.12)
== END 2017-09-14 17:45 | disposition home or self-care (01) ==
LOC: FTE 13:44
DX: J90 Pleural effusion, not elsewhere classified (principal)
CPT/HCPCS: 71010; 80048; 84484; 85025; 93005; Z7502

== ENCOUNTER 2017-09-21 03:22 | Inpatient (IN) | payer OTHER ==
[~2017-09-21] VITALS: Ht 160 cm; Wt 54.1 kg
[2017-09-21] VITALS (11 sets, daily range): BP systolic 115–147; BP diastolic 76–92; PULSE 87–107; RESP 16–21; Ht 160 cm; Wt 54.1 kg
[2017-09-21] MEDS ORDERED: morphine 2 MG INJ IV PRN (06:07)
[2017-09-21] MEDS ORDERED: NACL 0.9% 3 ML SYG IV SCH (07:00)
[2017-09-21] MEDS ORDERED: ONDANSETRON 4 MG INJ IV PRN (07:00)
[2017-09-21] MEDS: SOD CHLORIDE 0.9% 1,000 ML IV SCH (08:23)
--- NOTE | 2017-09-21 08:31 | RADRPT ---
PROCEDURE: XR Chest. CLINICAL INDICATION: Pleural effusion TECHNIQUE: Single frontal view of the chest was obtained COMPARISON: 09/14/2017 FINDINGS: There is hypoinflation of the lungs, bibasilar atelectasis and a moderately large left pleural effus ion and a moderate right pleural effusion. Surgical clips in left axillary region. Right Port-A-Cath tip near atriocaval junction. Evaluation of the size of the cardiac silhouette is limited due to lo ss of visualization of the left heart border. ECG leads are projected over the chest. Pulmonary vasc ular congestion is also apparent. IMPRESSION: There is hypoinflation of the lungs, bibasilar atelectasis and a moderately large left pleural effus ion and a moderate right pleural effusion. Pulmonary vascular congestion. The left pleural effusion appears larger than on the previous study. The pulmonary vascular congestion is increased compared t o previous study. RPTAT: HJES .Cal Montejo MD, MD Date Time Electronically viewed and signed by .Cal Montejo MD, on 09/21/2017 08:31 .S/
[2017-09-21] MEDS: ACETAMINOPHEN 325 MG TAB PO PRN (09:33)
[2017-09-21] MEDS ORDERED: VANCOMYCIN IV PER PHARMACY XX SCH (10:00)
[2017-09-21] MEDS ORDERED: ALBUTEROL/IPRATROPIUM (NEB) 3 ML AMP HHN PRN (10:00)
[2017-09-21] MEDS: morphine 2 MG INJ IV PRN ×3 (11:18→21:31)
--- NOTE | 2017-09-21 11:35 | HP ---
Date/Time of Note Date/Time of Note DATE: 09/21/17 TIME: 10:54 Assessment/Plan VTE Prophylaxis VTE Prophylaxis Intervention: SCD's Assessment/Plan Assessment/Plan - Shortness of breath: secondary to patient's pleural effusions d/t possibly from her metastatic breast cancer. - Recurrent bilateral pleural effusion-chest x-ray showed left pleural effusion more than right. -Admit to telemetry - pain control medications - antiemetics -We will get pulmonary consult, notified-discussed with Dr. Benton -Supplement oxygen as needed - Left Breast CA- - Get hematology oncology consult-Dr. Hayes notified -Left upper extremity edema-we will do a stat Doppler to rule out any DVT -Hx Pleural effusion -History of thoracentesis in the past -Status post left mastectomy - PPI for GI prophylaxis -SCDs for DVT prophylaxis Dw Dr Schultz/ Dr Benton/ Dr Braswell- Radiologist- regarding patient needs a pig tail placement or PleuraX placement. Per Dr Benton- left chest pig tail placement is ok- ronald Braswell, stated will do tomorrow; labs ordered ; patient will be NPO ; no blood thinners x 48 hrs. Further treatment recommendations based on patient's clinical course. Plan of care discussed with Dr. Schultz, staff HPI/ROS Admit Date/Time Admit Date/Time Sep 21, 2017 at 05:28 Hx of Present Illness 51-year-old female is admitted with shortness of breath due to recurrent bilateral pleural effusions. ER Chest x-ray showed left large pleural effusion as compared to right side. Pulmonary consult obtained. Patient has past medical history of metastatic ER/OH positive and HER-2 negative breast cancer, currently involving her bones, pleura and lymph nodes, as well as recurrent pleural effusions, who presents with shortness of breath occurring for 1 days. Denies any fevers or chills, upper or lower GI bleeding, no nausea or vomiting. No diarrhea no constipation, no headaches or dizziness or loss of consciousness. Patient has previous hospitalization with same diagnosis and has a history of thoracentesis as well. Plan of care discussed with staff. Patient denies any chest pain, headache, abdominal pain nausea vomiting. Ronald Schultz/ Dr Benton/ Dr Braswell- Radiologist- regarding patient needs a pig tail placement or PleuraX placement. Per Dr Benton- left chest pig tail placement is ok- dw dr Braswell, stated will do tomorrow; labs ordered ; patient will be NPO ; no blood thinners x 48 hrs. ROS Respiratory: shortness of breath Cardiovascular: no complaints Gastrointestinal: no complaints Genitourinary: no complaints Musculoskeletal: no complaints Skin: no complaints PMH/Family/Social Past Surgical History Left breast mastectomy Past Surgical Hx: other Family History Significant Family History: no pertinent family hx Social History Alcohol Use: none Smoking Status: Never smoker Drug Use: none Exam/Review of Systems Vital Signs Vitals Vital Signs Date Time Temp Pulse Resp B/P Pulse Ox O2 Delivery O2 Flow Rate FiO2 09/21/17 08:38 94 09/21/17 07:51 98.2 16 119/79 95 09/21/17 06:02 Nasal Cannula 2.0 Exam Constitutional: alert Respiratory: diminished breath sounds, other (Crackles bilateral lung bases) Cardiovascular: nl pulses Gastrointestinal: non-tender, soft Musculoskeletal: nl extremities to inspection Extremities: edema (Left upper extremity edema-we will do a stat Doppler to rule out any DVT) Neurological: other Medications Medications Current Medications Sodium Chloride (NS) 1,000 ml @ 30 mls/hr Q24H IV Last administered on 08:23; Admin Dose 30 MLS/HR; Start 09/21/17 at 06:41 Ondansetron HCl (Zofran Inj) 4 mg Q6H PRN IV NAUSEA AND/OR VOMITING; Start 09/21/17 at 07:00 Acetaminophen (Tylenol Tab) 650 mg Q6H PRN PO PAIN LEVEL 1-3 OR FEVER Last administered on 09/21/17 09:33; Admin Dose 650 MG; Start 09/21/17 at 07:00 Morphine Sulfate 2 mg 2 mg Q3H PRN IV pain; Start 09/21/17 at 10:00 Cefepime HCl 50 ml @ 100 mls/hr Q12 IVPB ; Start 09/21/17 at 21:00 Vancomycin HCl (Vancocin) 250 ml @ 125 mls/hr ONCE@12 IVPB ; Start 09/21/17 at 12:00; Stop 09/21/17 at 16:00 Procedures Procedures PROCEDURE: XR Chest. CLINICAL INDICATION: Pleural effusion TECHNIQUE: Single frontal view of the chest was obtained COMPARISON: 09/14/2017 FINDINGS: There is hypoinflation of the lungs, bibasilar atelectasis and a moderately large left pleural effusion and a moderate right pleural effusion. Surgical clips in left axillary region. Right Port-A-Cath tip near atriocaval junction. Evaluation of the size of the cardiac silhouette is limited due to loss of visualization of the left heart border. ECG leads are projected over the chest. Pulmonary vascular congestion is also apparent. IMPRESSION: There is hypoinflation of the lungs, bibasilar atelectasis and a moderately large left pleural effusion and a moderate right pleural effusion. Pulmonary vascular congestion. The left pleural effusion appears larger than on the previous study. The pulmonary vascular congestion is increased compared to previous study. KERLINE BAEZ Sep 21, 2017 11:05
[2017-09-21] MEDS ORDERED: VANCOMYCIN 1 GM in NS 250 ML IVPB SCH (12:00)
[2017-09-21] MEDS: FAMOTIDINE 20 MG INJ IV SCH ×2 (12:13→21:30)
[2017-09-21 12:16] LABS: CREATININE 0.53 mg/dl (0.44-1.00)
[2017-09-21] MEDS: ALBUTEROL/IPRATROPIUM (NEB) 3 ML AMP HHN SCH ×3 (14:00→19:34)
[2017-09-21 14:47] LABS: INR 1.02; PROTIME 13.5 Sec (11.9-14.9); PT RATIO 1.1
[2017-09-21 14:49] LABS: CALCIUM 8.7 mg/dl (8.4-10.2); CREATININE 0.53 mg/dl (0.44-1.00); POTASSIUM 4.3 mmol/L (3.5-5.1)
--- NOTE | 2017-09-21 16:13 | CONS ---
DATE OF ADMISSION: 09/21/2017 DATE OF CONSULTATION: 09/21/2017 PULMONARY CONSULTATION PRIMARY PHYSICIAN: Dr. Dickinson. REASON FOR CONSULTATION: Shortness of breath. HISTORY OF PRESENT ILLNESS: Briefly, this is a 51-year-old female with a known history of metastati c breast cancer, status post numerous prior thoracenteses for both left and right pleural effusion, most recently done approximately 3 weeks prior, who now returns to the hospital with increasing shor tness of breath, noted to have a left greater than right pleural effusion. Of note, she has metasta tic ER/MA positive and HER-2 negative breast cancer which involves her bones, her pleura and lymph n odes. PAST MEDICAL HISTORY: In addition to the metastatic breast cancer, is otherwise noncontributory. PAST SURGICAL HISTORY: Breast surgery in 2009. FAMILY HISTORY: Noncontributory. SOCIAL HISTORY: No tobacco, alcohol or illicit drug use. REVIEW OF SYSTEMS: As noted in the HPI. ALLERGIES: NONE. MEDICATIONS: Please see MAR. PHYSICAL EXAMINATION: VITAL SIGNS: Heart rate is 90, blood pressure is 124/76, oxygen saturation is 94% on 5 liters nasal cannula, afebrile. HEENT: Normocephalic, atraumatic. NECK: Supple. Shotty lymphadenopathy is noted in the cervical region. CHEST: There are decreased breath sounds at both bases, left greater than right. CARDIOVASCULAR: Regular rate and rhythm, S1 and S2. ABDOMEN: Soft, nontender, no hepatosplenomegaly. EXTREMITIES: Significant lymphedema involving the left upper extremity noted. LABORATORY DATA: Have been ordered and are pending. Chest x-ray shows a moderate-sized left greate r than right pleural effusion, as well as a Port-A-Cath in place in the right SVC. IMPRESSION: 1. Shortness of breath, likely due to widely metastatic breast cancer with bilateral pleural effusi ons, left greater than right. In view of patient's history of known malignant effusions and recurre nt thoracenteses on both and the left, it would be reasonable to pursue PleurX placement, at this po int to start off with the left side. RECOMMENDATIONS: 1. Would suggest placement of a PleurX catheter in the left pleural space. If we are unable to hav e a PleurX placement over the weekend, then I would suggest a therapeutic thoracentesis to alleviate her symptoms. Dictated By: FABIOLA JOHNSON MD NK/NTS Conf#: [id number] DID#: [id number] CC: OLIVIA SAUCEDO MD; CÉSAR DICKINSON MD; CEZAR GOLDMAN MD;*EndCC*
--- NOTE | 2017-09-21 16:48 | RADRPT ---
PROCEDURE: US upper extremity Venous. CLINICAL INDICATION: Left arm edema TECHNIQUE: Multiple sonographic images of the left upper extremity venous system was obtained util izing grayscale, color-flow, compressive sonography and doppler imaging with augmentation. The imag es were reviewed on a PACS workstation. COMPARISON: US EXTREMITY 08/23/2016 FINDINGS: There is normal compressibility and flow within the left internal jugular vein, subclavian vein, axi llary vein, brachial, basilic, cephalic, radial and ulnar veins. There is a 0.7 cm hypoechoic nodule in the soft tissues of the left supraclavicular region. There is increased vascularity within this nodule. RPTAT: AA IMPRESSION: No sonographic evidence for venous thrombosis. 0.7 cm soft tissue nodule in the left supraclavicular region. Given the history of breast neoplasm, further evaluation with CT with contrast is recommended. .Javier Real MD, MD Date Time Electronically viewed and signed by .Javier Real MD, on 09/21/2017 16:47 .S/
[2017-09-21 19:20] LABS: BASOPHIL # 0.1 10^3/ul (0.0-0.1); BASOPHILS % 0.5 % (0.0-2.0); EOSINOPHILS # 0.2 10^3/ul (0.0-0.5); EOSINOPHILS % 1.7 % (0.0-7.0); HEMOGLOBIN 11.7 g/dl (12.0-16.0); LYMPHOCYTES # 1.1 10^3/ul (0.8-2.9); LYMPHOCYTES % 11.6 % (15.0-51.0); MEAN CORPUSCULAR HEMOGLOBIN 31.5 pg (29.0-33.0); MEAN CORPUSCULAR HGB CONC 33.4 g/dl (32.0-37.0); MEAN CORPUSCULAR VOLUME 94.3 fl (82.0-101.0); MEAN PLATELET VOLUME 9.6 fl (7.4-10.4); MONOCYTE # 0.7 10^3/ul (0.3-0.9); MONOCYTES % 7.3 % (0.0-11.0); NEUTROPHIL # 7.4 10^3/ul (1.6-7.5); NEUTROPHILS % 78.4 % (39.0-77.0); PLATELET COUNT 460 10^3/UL (140-415); RED BLOOD COUNT 3.71 10^6/ul (4.20-5.40); RED CELL DISTRIBUTION WIDTH 14.4 % (11.5-14.5); WHITE BLOOD COUNT 9.5 10^3/ul (4.8-10.8)
[2017-09-21 20:05] LABS: INR 0.97
[2017-09-21 20:06] LABS: PARTIAL THROMBOPLASTIN TIME 27.8 Sec (25.0-35.0)
[2017-09-21 20:19] LABS: ALBUMIN 3.5 g/dl (3.3-4.9); ALBUMIN/GLOBULIN RATIO 0.94; BILIRUBIN,INDIRECT 0.3 mg/dl (0-1.1); BILIRUBIN,TOTAL 0.3 mg/dl (0.2-1.3); CALCIUM 8.7 mg/dl (8.4-10.2); CREATININE 0.55 mg/dl (0.44-1.00); POTASSIUM 4.1 mmol/L (3.5-5.1); TOTAL PROTEIN 7.2 g/dl (6.1-8.1)
[2017-09-21] MEDS ORDERED: CEFEPIME 1GM/50 ML (PMX) 50 ML IVPB SCH (21:00)
[2017-09-22] VITALS (12 sets, daily range): BP systolic 100–127; BP diastolic 68–89; PULSE 94–114; RESP 18–24
[2017-09-22] MEDS ORDERED: VANCOMYCIN 1 GM in NS 250 ML IVPB SCH
[2017-09-22] MEDS: morphine 2 MG INJ IV PRN ×5 (00:45→23:12)
[2017-09-22] MEDS: ALBUTEROL/IPRATROPIUM (NEB) 3 ML AMP HHN SCH ×4 (01:11→19:52)
[2017-09-22] MEDS ORDERED: PANTOPRAZOLE 40 MG INJ IV SCH (06:00)
[2017-09-22 06:01] LABS: BASOPHILS % 0.4 % (0.0-2.0); EOSINOPHILS # 0.2 10^3/ul (0.0-0.5); EOSINOPHILS % 1.4 % (0.0-7.0); HEMATOCRIT 35.1 % (37.0-47.0); HEMOGLOBIN 11.9 g/dl (12.0-16.0); MEAN CORPUSCULAR HEMOGLOBIN 31.6 pg (29.0-33.0); MEAN CORPUSCULAR HGB CONC 33.9 g/dl (32.0-37.0); MEAN CORPUSCULAR VOLUME 93.4 fl (82.0-101.0); MEAN PLATELET VOLUME 9.8 fl (7.4-10.4); MONOCYTE # 0.9 10^3/ul (0.3-0.9); NEUTROPHIL # 8.6 10^3/ul (1.6-7.5); NEUTROPHILS % 80.5 % (39.0-77.0); PLATELET COUNT 472 10^3/UL (140-415); RED BLOOD COUNT 3.76 10^6/ul (4.20-5.40); RED CELL DISTRIBUTION WIDTH 14.3 % (11.5-14.5); WHITE BLOOD COUNT 10.7 10^3/ul (4.8-10.8)
[2017-09-22 06:39] LABS: ALBUMIN 3.6 g/dl (3.3-4.9); ALBUMIN/GLOBULIN RATIO 0.87; BILIRUBIN,INDIRECT 0.5 mg/dl (0-1.1); BILIRUBIN,TOTAL 0.5 mg/dl (0.2-1.3); CALCIUM 9.2 mg/dl (8.4-10.2); CREATININE 0.57 mg/dl (0.44-1.00); MAGNESIUM 2.1 mg/dl (1.7-2.5); POTASSIUM 3.9 mmol/L (3.5-5.1); TOTAL PROTEIN 7.7 g/dl (6.1-8.1)
[2017-09-22] MEDS: SOD CHLORIDE 0.9% 1,000 ML IV SCH (06:41)
[2017-09-22] MEDS: FAMOTIDINE 20 MG INJ IV SCH (08:00)
[2017-09-22] MEDS ORDERED: ENOXAPARIN 40 MG/0.4 ML SYG SC SCH (09:00)
[2017-09-22] MEDS: ACETAMINOPHEN 325 MG TAB PO PRN (09:54)
--- NOTE | 2017-09-22 12:10 | PN ---
Date/Time of Note Date/Time of Note DATE: 09/22/17 TIME: 12:04 Assessment/Plan Lines/Catheters IV Catheter Type (from Nrsg): Saline Lock Assessment/Plan Assessment/Plan - Shortness of breath: secondary to patient's pleural effusions d/t possibly from her metastatic breast cancer. - Recurrent bilateral pleural effusion-chest x-ray showed left pleural effusion more than right - pain control medications - antiemetics -per pulmonary - notified -Supplement oxygen as needed - Left Breast CA- - per hematology oncology consult -Left upper extremity edema-we will do a stat Doppler to rule out any DVT - negative for DVT -Hx Pleural effusion -History of thoracentesis in the past -Status post left mastectomy - PPI for GI prophylaxis -SCDs for DVT prophylaxis Further treatment recommendations based on patient's clinical course. Plan of care discussed with Dr. Schultz, staff Subjective 24 Hr Interval Summary Free Text/Dictation - c/o shortness of breath, on 5 L o2 by NC ;Refusing to sign consent, - afebrile -Plan for possible thoracentesis today or PleuraX placement tomorrow. no acute issues reported overnight. dw staff Constitutional: requiring IVF, requiring O2 Respiratory: shortness of breath Cardiovascular: no complaints Gastrointestinal: no complaints Genitourinary: no complaints Musculoskeletal: no complaints Skin: no complaints Exam/Review of Systems Vital Signs Vitals Vital Signs Date Time Temp Pulse Resp B/P Pulse Ox O2 Delivery O2 Flow Rate FiO2 09/22/17 08:48 99 24 94 Nasal Cannula 5.0 09/22/17 08:00 98.1 127/89 Intake and Output 09/21/17 09/21/17 09/22/17 15:00 23:00 07:00 Intake Total 250 ml 360 ml Balance 250 ml 360 ml Exam Respiratory: diminished breath sounds Results Result Diagram: 09/22/17 0525 09/22/17 0525 Results 24 hrs Laboratory Tests Test 09/21/17 14:17 09/21/17 18:33 09/22/17 05:25 Prothrombin Time 13.5 13.0 Prothrombin Time Ratio 1.1 1.0 INR International Normalized Ratio 1.02 0.97 Sodium Level 141 139 137 Potassium Level 4.3 4.1 3.9 Chloride Level 104 102 98 Carbon Dioxide Level 30 29 30 Anion Gap 11 12 13 Blood Urea Nitrogen 13 11 10 Creatinine 0.53 0.55 0.57 Glucose Level 103 98 121 Calcium Level 8.7 8.7 9.2 White Blood Count 9.5 # 10.7 Red Blood Count 3.71 L 3.76 L Hemoglobin 11.7 L 11.9 L Hematocrit 35.0 L 35.1 L Mean Corpuscular Volume 94.3 93.4 Mean Corpuscular Hemoglobin 31.5 31.6 Mean Corpuscular Hemoglobin Concent 33.4 33.9 Red Cell Distribution Width 14.4 14.3 Platelet Count 460 H 472 H Mean Platelet Volume 9.6 9.8 Neutrophils % 78.4 H 80.5 H Lymphocytes % 11.6 L 9.0 L Monocytes % 7.3 8.0 Eosinophils % 1.7 1.4 Basophils % 0.5 0.4 Nucleated Red Blood Cells % 0.0 0.0 Neutrophils # 7.4 8.6 H Lymphocytes # 1.1 1.0 Monocytes # 0.7 0.9 Eosinophils # 0.2 0.2 Basophils # 0.1 0.0 Nucleated Red Blood Cells # 0.0 0.0 Activated Partial Thromboplast Time 27.8 Total Bilirubin 0.3 0.5 Direct Bilirubin 0.00 0.00 Indirect Bilirubin 0.3 0.5 Aspartate Amino Transf (AST/SGOT) 58 H 52 H Alanine Aminotransferase (ALT/SGPT) 28 31 Alkaline Phosphatase 78 77 Total Protein 7.2 7.7 Albumin 3.5 3.6 Globulin 3.70 H 4.10 H Albumin/Globulin Ratio 0.94 0.87 Hemoglobin A1c 5.5 Magnesium Level 2.1 Medications Medications Current Medications Sodium Chloride (NS) 1,000 ml @ 30 mls/hr Q24H IV Last administered on 08:23; Admin Dose 30 MLS/HR; Start 09/21/17 at 06:41 Ondansetron HCl (Zofran Inj) 4 mg Q6H PRN IV NAUSEA AND/OR VOMITING; Start 09/21/17 at 07:00 Acetaminophen (Tylenol Tab) 650 mg Q6H PRN PO PAIN LEVEL 1-3 OR FEVER Last administered on 09/22/17 09:54; Admin Dose 650 MG; Start 09/21/17 at 07:00 Morphine Sulfate (morphine) 2 mg Q3H PRN IV pain Last administered on 08:00; Admin Dose 2 MG; Start 09/21/17 at 10:00 Famotidine (Pepcid Iv) 20 mg BID IV Last administered on 09/22/17 08:00; Admin Dose 20 MG; Start 09/21/17 at 12:00 KERLINE BAEZ Sep 22, 2017 12:10
--- NOTE | 2017-09-22 13:38 | CONS ---
Date/Time of Note Date/Time of Note DATE: 09/22/17 TIME: 13:33 Consult Date/Type/Reason Admit Date/Time Sep 21, 2017 at 05:28 Initial Consult Date Type of Consultation: Pulm Subjective Feels less SOB. Objective Vital Signs Date Time Temp Pulse Resp B/P Pulse Ox O2 Delivery O2 Flow Rate FiO2 09/22/17 12:35 102 09/22/17 12:04 97.6 24 120/79 96 09/22/17 08:48 Nasal Cannula 5.0 Intake and Output 09/21/17 09/21/17 09/22/17 15:00 23:00 07:00 Intake Total 250 ml 360 ml Balance 250 ml 360 ml Exam NECK: Supple. Shotty lymphadenopathy is noted in the cervical region. CHEST: There are decreased breath sounds at both bases, left greater than right. CARDIOVASCULAR: Regular rate and rhythm, S1 and S2. ABDOMEN: Soft, nontender, no hepatosplenomegaly. EXTREMITIES: Significant lymphedema involving the left upper extremity noted. Results/Medications Result Diagram: 09/22/17 0525 09/22/17 0525 Results 24 hrs Laboratory Tests Test 09/21/17 14:17 09/21/17 18:33 09/22/17 05:25 Prothrombin Time 13.5 13.0 Prothrombin Time Ratio 1.1 1.0 INR International Normalized Ratio 1.02 0.97 Sodium Level 141 139 137 Potassium Level 4.3 4.1 3.9 Chloride Level 104 102 98 Carbon Dioxide Level 30 29 30 Anion Gap 11 12 13 Blood Urea Nitrogen 13 11 10 Creatinine 0.53 0.55 0.57 Glucose Level 103 98 121 Calcium Level 8.7 8.7 9.2 White Blood Count 9.5 # 10.7 Red Blood Count 3.71 L 3.76 L Hemoglobin 11.7 L 11.9 L Hematocrit 35.0 L 35.1 L Mean Corpuscular Volume 94.3 93.4 Mean Corpuscular Hemoglobin 31.5 31.6 Mean Corpuscular Hemoglobin Concent 33.4 33.9 Red Cell Distribution Width 14.4 14.3 Platelet Count 460 H 472 H Mean Platelet Volume 9.6 9.8 Neutrophils % 78.4 H 80.5 H Lymphocytes % 11.6 L 9.0 L Monocytes % 7.3 8.0 Eosinophils % 1.7 1.4 Basophils % 0.5 0.4 Nucleated Red Blood Cells % 0.0 0.0 Neutrophils # 7.4 8.6 H Lymphocytes # 1.1 1.0 Monocytes # 0.7 0.9 Eosinophils # 0.2 0.2 Basophils # 0.1 0.0 Nucleated Red Blood Cells # 0.0 0.0 Activated Partial Thromboplast Time 27.8 Total Bilirubin 0.3 0.5 Direct Bilirubin 0.00 0.00 Indirect Bilirubin 0.3 0.5 Aspartate Amino Transf (AST/SGOT) 58 H 52 H Alanine Aminotransferase (ALT/SGPT) 28 31 Alkaline Phosphatase 78 77 Total Protein 7.2 7.7 Albumin 3.5 3.6 Globulin 3.70 H 4.10 H Albumin/Globulin Ratio 0.94 0.87 Hemoglobin A1c 5.5 Magnesium Level 2.1 Medications Current Medications Sodium Chloride (NS) 1,000 ml @ 30 mls/hr Q24H IV Last administered on 08:23; Admin Dose 30 MLS/HR; Start 09/21/17 at 06:41 Ondansetron HCl (Zofran Inj) 4 mg Q6H PRN IV NAUSEA AND/OR VOMITING; Start 09/21/17 at 07:00 Acetaminophen (Tylenol Tab) 650 mg Q6H PRN PO PAIN LEVEL 1-3 OR FEVER Last administered on 09/22/17 09:54; Admin Dose 650 MG; Start 09/21/17 at 07:00 Morphine Sulfate (morphine) 2 mg Q3H PRN IV pain Last administered on 08:00; Admin Dose 2 MG; Start 09/21/17 at 10:00 Famotidine (Pepcid Iv) 20 mg BID IV Last administered on 09/22/17 08:00; Admin Dose 20 MG; Start 09/21/17 at 12:00 Acetaminophen/ Hydrocodone Bitart (Severy (5/325)) 1 tab Q6H PRN PO PAIN LEVEL 6 -10; Start 09/22/17 at 12:30 Assessment/Plan Additional Assessment/Plan IMP: 1. Bilateral Malignant Effusions 2. Metastatic Breast Cancer RECS: 1. Okay to proceed with left thoracentesis 2. Thereafter can discuss possible pleurX with CTS and Oncology. FABIOLA JOHNSON MD Sep 22, 2017 13:38
[2017-09-22] MEDS ORDERED: LIDOCAINE 1% (MPF) 5 ML VIAL ONE (15:16)
--- NOTE | 2017-09-22 15:16 | RADRPT ---
PROCEDURE: XR Chest. CLINICAL INDICATION: Pleural effusion status post thoracentesis. TECHNIQUE: Chest x-ray, single view. COMPARISON: 09/21/2017. FINDINGS: The cardiomediastinal silhouette is normal. A right-sided port is in place. A moderate right pleura l effusion is present and appear slightly increased. The left pleural effusion has resolved status p ost thoracentesis. A trace pneumothorax is identified. Surgical clips are seen within the left axil la. IMPRESSION: Resolution of left pneumothorax status post pleural effusion. A trace pneumothorax is present. A fol lowup x-ray will be obtained in 2 hours. Moderate right pleural effusion, slightly increased. Call report: Imaging findings discussed with the patient's nurse, Monisha, at 1516 hours. RPTAT: QQ .Misti Person MD, Date Time Electronically viewed and signed by .Misti Person MD, MD on 09/22/2017 15:16 .T/
--- NOTE | 2017-09-22 15:47 | RADRPT ---
PROCEDURE: Ultrasound-guided thoracentesis. CLINICAL INDICATION: Pleural effusion. TECHNIQUE: As below. COMPARISON: 08/28/2017. FINDINGS: Prior to the commencement procedure, informed consent was obtained. The posterior left lower derrick man ior chest was prepped and draped in sterile fashion with 1% lidocaine used for local anesthesia. A 5-Turkish catheter was placed into the pleural space under ultrasound guidance. Approximately 1.85 l iters of serosanguineous pleural fluid was aspirated. IMPRESSION: Uncomplicated ultrasound-guided thoracentesis of the left side of the chest. RPTAT: QQ .Misti Person MD, Date Time Electronically viewed and signed by .Misti Person MD, on 09/22/2017 15:47 .T/
--- NOTE | 2017-09-22 22:18 | RADRPT ---
PROCEDURE: XR Chest. CLINICAL INDICATION: Follow-up pneumothorax status post thoracentesis. TECHNIQUE: Single frontal view of the chest was obtained. COMPARISON: 09/22/2017. FINDINGS: Right sided Port-A-Cath stable in position. The cardiomediastinal silhouette is normal in size. There is pulmonary vascular congestion. No significant change in a small apical left pneumothorax. There is a small left pleural effusion. There is a moderate right pleural effusion. Surgical clips in the left axillary region. IMPRESSION: 1. No significant change in a small apical left pneumothorax. Small left pleural effusion. Recommend continued follow-up. 2. No significant change in pulmonary vascular congestion with a moderate right pleural effusion. RPTAT: [facility] Kandy Evangelista Physician Date Time Electronically viewed and signed by Kandy Evangelista Physician on 09/22/2017 22:18 PH/
[2017-09-23] VITALS (11 sets, daily range): BP systolic 75–97; BP diastolic 52–58; PULSE 91–115; RESP 18–19
[2017-09-23] MEDS: ALBUTEROL/IPRATROPIUM (NEB) 3 ML AMP HHN SCH ×4 (01:37→19:47)
[2017-09-23] MEDS: PANTOPRAZOLE (EC) 40 MG TAB PO SCH (06:00)
[2017-09-23] MEDS: morphine 2 MG INJ IV PRN ×3 (06:16→22:29)
[2017-09-23 06:40] LABS: BASOPHILS % 0.2 % (0.0-2.0); EOSINOPHILS # 0.2 10^3/ul (0.0-0.5); EOSINOPHILS % 2.1 % (0.0-7.0); HEMATOCRIT 34.5 % (37.0-47.0); HEMOGLOBIN 12.1 g/dl (12.0-16.0); LYMPHOCYTES # 0.9 10^3/ul (0.8-2.9); LYMPHOCYTES % 8.9 % (15.0-51.0); MEAN CORPUSCULAR HGB CONC 35.1 g/dl (32.0-37.0); MEAN CORPUSCULAR VOLUME 91.3 fl (82.0-101.0); MONOCYTE # 0.5 10^3/ul (0.3-0.9); MONOCYTES % 4.5 % (0.0-11.0); NEUTROPHIL # 8.4 10^3/ul (1.6-7.5); NEUTROPHILS % 83.6 % (39.0-77.0); PLATELET COUNT 430 10^3/UL (140-415); RED BLOOD COUNT 3.78 10^6/ul (4.20-5.40); RED CELL DISTRIBUTION WIDTH 14.2 % (11.5-14.5)
[2017-09-23] MEDS: SOD CHLORIDE 0.9% 1,000 ML IV SCH (06:41)
[2017-09-23 07:11] LABS: CALCIUM 8.6 mg/dl (8.4-10.2); CREATININE 0.56 mg/dl (0.44-1.00); POTASSIUM 3.7 mmol/L (3.5-5.1)
--- NOTE | 2017-09-23 10:37 | CONS ---
Date/Time of Note Date/Time of Note DATE: 09/23/17 TIME: 10:35 Assessment/Plan Assessment/Plan Additional Assessment/Plan Assessment and recommendations; 1. Patient admitted with shortness of breath due to bilateral pleural effusions from metastatic breast cancer. Status post left thoracentesis yesterday. Continue current treatment. Patient possibly may require Pleurx catheter placement. Will obtain follow-up chest x-ray in 24 hours. Consultation Date/Type/Reason Admit Date/Time Sep 21, 2017 at 05:28 Initial Consult Date Type of Consultation: Pulm 24 HR Interval Summary Free Text/Dictation Patient's condition is stable. Reports decreased shortness of breath after undergoing left thoracentesis yesterday. General exam; middle-aged woman, awake and alert. Appears quite emaciated. Currently in no distress. Exam/Review of Systems Vital Signs Vitals Vital Signs Date Time Temp Pulse Resp B/P Pulse Ox O2 Delivery O2 Flow Rate FiO2 09/23/17 08:12 97.9 89 18 78/52 97 09/23/17 01:37 Nasal Cannula 5.0 Intake and Output 09/22/17 09/22/17 09/23/17 15:00 23:00 07:00 Intake Total 450 ml 400 ml Balance 450 ml 400 ml Exam HEENT exam; supple neck, no JVD. No lymphadenopathy. Midline trachea. No thyromegaly. Chest exam; diminished breath sound lung bases bilaterally. Upper lobes are clear to auscultation. S1-S2 audible, no murmurs. Regular rhythm. Abdomen exam; soft, nontender. No organomegaly. Bowel sounds audible. Extremity exam; no edema. [employer]ET[employer] exam; no deficit. Results Result Diagram: 09/23/17 0544 09/23/17 0544 Results 24 hrs Laboratory Tests Test 09/23/17 05:44 White Blood Count 10.0 Red Blood Count 3.78 L Hemoglobin 12.1 Hematocrit 34.5 L Mean Corpuscular Volume 91.3 Mean Corpuscular Hemoglobin 32.0 Mean Corpuscular Hemoglobin Concent 35.1 Red Cell Distribution Width 14.2 Platelet Count 430 H Mean Platelet Volume 10.0 Neutrophils % 83.6 H Lymphocytes % 8.9 L Monocytes % 4.5 Eosinophils % 2.1 Basophils % 0.2 Nucleated Red Blood Cells % 0.0 Neutrophils # 8.4 H Lymphocytes # 0.9 Monocytes # 0.5 Eosinophils # 0.2 Basophils # 0.0 Nucleated Red Blood Cells # 0.0 Sodium Level 136 Potassium Level 3.7 Chloride Level 98 Carbon Dioxide Level 29 Anion Gap 13 Blood Urea Nitrogen 13 Creatinine 0.56 Glucose Level 116 Calcium Level 8.6 Medications Medications Current Medications Sodium Chloride (NS) 1,000 ml @ 30 mls/hr Q24H IV Last administered on 08:23; Admin Dose 30 MLS/HR; Start 09/21/17 at 06:41 Ondansetron HCl (Zofran Inj) 4 mg Q6H PRN IV NAUSEA AND/OR VOMITING; Start 09/21/17 at 07:00 Acetaminophen (Tylenol Tab) 650 mg Q6H PRN PO PAIN LEVEL 1-3 OR FEVER Last administered on 09/22/17 09:54; Admin Dose 650 MG; Start 09/21/17 at 07:00 Morphine Sulfate (morphine) 2 mg Q3H PRN IV pain Last administered on 06:16; Admin Dose 2 MG; Start 09/21/17 at 10:00 Acetaminophen/ Hydrocodone Bitart ([place] (5/325)) 1 tab Q6H PRN PO PAIN LEVEL 6 -10; Start 09/22/17 at 12:30 Pantoprazole (Protonix Tab) 40 mg DAILY@06 PO ; Start 09/23/17 at 06:00 IRMA MOON Sep 23, 2017 10:37
--- NOTE | 2017-09-23 10:57 | PN ---
Date/Time of Note Date/Time of Note DATE: 09/23/17 TIME: 10:55 Assessment/Plan VTE Prophylaxis VTE Prophylaxis Intervention: SCD's Lines/Catheters IV [facility] [place] Assessment/Plan Chief Complaint/Hosp Course Patient denies any shortness of breath, portable and supplemental oxygen. Per radiology no plans for Port-A-Cath placement today (effusion is very small), will restart patient on a regular diet Problems: Assessment/Plan - Bilateral Malignant Effusions, status post left-sided thoracentesis with removal of 1.85 L of serosanguineous fluid on 09/22. Dr Barragan is following in pulmonology consultation. Possible Pleurx catheter insertion by radiology. - Metastatic Breast Cancer involvement of pleura and bones. Dr. Hayes is following in hematology consultation - Status post left mastectomy - Depression, continue Remeron. Further recommendations based on clinical course. Plan of care discussed with Dr. Schultz. Exam/Review of Systems Vital Signs Vitals Vital Signs Date Time Temp Pulse Resp B/P Pulse Ox O2 Delivery O2 Flow Rate FiO2 09/23/17 08:12 97.9 89 18 78/52 97 09/23/17 01:37 Nasal Cannula 5.0 Intake and Output 09/22/17 09/22/17 09/23/17 14:59 22:59 06:59 Intake Total 450 ml 400 ml Balance 450 ml 400 ml Exam Constitutional: alert, oriented Head: normocephalic Neck: supple Respiratory: normal air movement Cardiovascular: nl pulses, regular rate and rhythm Gastrointestinal: non-tender, soft Extremities: normal pulses Skin: other (Status post left mastectomy) Additional Comments Right chest Port-A-Cath Results Result Diagram: 09/23/17 0544 09/23/17 0544 Results 24 hrs Laboratory Tests Test 09/23/17 05:44 White Blood Count 10.0 Red Blood Count 3.78 L Hemoglobin 12.1 Hematocrit 34.5 L Mean Corpuscular Volume 91.3 Mean Corpuscular Hemoglobin 32.0 Mean Corpuscular Hemoglobin Concent 35.1 Red Cell Distribution Width 14.2 Platelet Count 430 H Mean Platelet Volume 10.0 Neutrophils % 83.6 H Lymphocytes % 8.9 L Monocytes % 4.5 Eosinophils % 2.1 Basophils % 0.2 Nucleated Red Blood Cells % 0.0 Neutrophils # 8.4 H Lymphocytes # 0.9 Monocytes # 0.5 Eosinophils # 0.2 Basophils # 0.0 Nucleated Red Blood Cells # 0.0 Sodium Level 136 Potassium Level 3.7 Chloride Level 98 Carbon Dioxide Level 29 Anion Gap 13 Blood Urea Nitrogen 13 Creatinine 0.56 Glucose Level 116 Calcium Level 8.6 Medications Medications Current Medications Sodium Chloride (NS) 1,000 ml @ 30 mls/hr Q24H IV Last administered on 08:23; Admin Dose 30 MLS/HR; Start 09/21/17 at 06:41 Ondansetron HCl (Zofran Inj) 4 mg Q6H PRN IV NAUSEA AND/OR VOMITING; Start 09/21/17 at 07:00 Acetaminophen (Tylenol Tab) 650 mg Q6H PRN PO PAIN LEVEL 1-3 OR FEVER Last administered on 09/22/17 09:54; Admin Dose 650 MG; Start 09/21/17 at 07:00 Morphine Sulfate (morphine) 2 mg Q3H PRN IV pain Last administered on 06:16; Admin Dose 2 MG; Start 09/21/17 at 10:00 Acetaminophen/ Hydrocodone Bitart ([place] (5/325)) 1 tab Q6H PRN PO PAIN LEVEL 6 -10; Start 09/22/17 at 12:30 Pantoprazole (Protonix Tab) 40 mg DAILY@06 PO ; Start 09/23/17 at 06:00 FANI MURRAY Sep 23, 2017 10:57
--- NOTE | 2017-09-23 15:24 | CONS ---
Date/Time of Note Date/Time of Note DATE: 09/23/17 TIME: 15:11 Assessment/Plan Assessment/Plan Chief Complaint/Hosp Course #ER+/AL+/Her 2 negative Metastatic breast ca, involving her pleura, bones . Pt has already progressed through Aromasin/ Afinitor, Taxotere, Cytoxan and Gemzar , Ixempra and Xeloda -given CA 15-3 has significantly increased will start Doxil 50mg/m2 q 4 weeks -pt appears to have progressive disease given her recurring pleural effusions -MUGA ordered prior to chemotherapy #Shortness of breath -2/2 to recurrent malignant pleural effusion -pt again is s/p thoracentesis -f/u pulmonary recs to see if pleurex catheter is needed #bone Metastasis -cont Zometa q 3 months #Conjunctivitis, appears viral -this has since resolved #BLE leg pain -continue [place] 5/325 q 6 hours prn leg pain -pt does not want gabapentin at this time Problems: Consultation Date/Type/Reason Admit Date/Time Sep 21, 2017 at 05:28 Date of Consultation: Sep 23, 2017 Type of Consultation: oncology Reason for Consultation recurrent malignant pleural effusion Referring Provider: CÉSAR DICKINSON MD Hx of Present Illness Ms. Mitzi Tan careT2, N2 stage IIIA left-sided breast cancer that is ER/AL positive and HER-2 negative. The patient went on to receive surgery followed by chemotherapy with Taxotere, Adriamycin, and Cytoxan followed by radiotherapy. The patient was then on tamoxifen, but after one year, she states she was switched to an aromatase inhibitor given that she was told the Tamoxifen was not working. In 2013, she recurred with metastatic disease to her chest, her lungs, and her bones. At that time, she was started on chemotherapy. Per Dr. Valles records, the patient has since progressed through Aromasin, Afinitor, Taxotere, Cytoxan, Gemzar, Xeloda/ Ixempra. Pt was most recently on Ibrance/ Faslodex. Given her multiple admissions for recurrent malignant pleural effusion pt was recently switched back to chemotherapy. She recieved cycle 1 of Doxil chemotherapy on 09/18/17. She now again presents with recurrent malignant pleural effusion. Pt underwent left-sided thoracentesis with removal of 1.85 L of serosanguineous fluid on . Pt is currently being followed by pulmonary and is being considered for pleurex catheter placement. Constitutional: other (shortness of breath), requiring O2 Eyes: no complaints ENT: no complaints Respiratory: cough, shortness of breath Cardiovascular: chest pain Gastrointestinal: no complaints Genitourinary: no complaints Musculoskeletal: back pain, bone/joint pain Skin: no complaints Past Medical History none Past Surgical History 2010 L sided mastectomy Past Surgical Hx: other Family History Significant Family History: no pertinent family hx Social History Alcohol Use: none Smoking Status: Never smoker Drug Use: none Exam/Review of Systems Vital Signs Vitals Vital Signs Date Time Temp Pulse Resp B/P Pulse Ox O2 Delivery O2 Flow Rate FiO2 09/23/17 12:01 97.3 95 18 75/55 97 09/23/17 08:56 Nasal Cannula 5.0 Intake and Output 09/22/17 09/22/17 09/23/17 15:00 23:00 07:00 Intake Total 450 ml 400 ml Balance 450 ml 400 ml Exam Constitutional: alert, oriented Psych: no complaints Head: normocephalic Eyes: nl conjunctiva ENMT: nl external ears & nose Neck: supple Respiratory: congested cough, crackles/rales, diminished breath sounds Cardiovascular: regular rate and rhythm Gastrointestinal: soft Musculoskeletal: nl extremities to inspection Extremities: normal pulses Results Result Diagram: 09/23/17 0544 09/23/17 0544 Results 24 hrs Laboratory Tests Test 09/23/17 05:44 White Blood Count 10.0 Red Blood Count 3.78 L Hemoglobin 12.1 Hematocrit 34.5 L Mean Corpuscular Volume 91.3 Mean Corpuscular Hemoglobin 32.0 Mean Corpuscular Hemoglobin Concent 35.1 Red Cell Distribution Width 14.2 Platelet Count 430 H Mean Platelet Volume 10.0 Neutrophils % 83.6 H Lymphocytes % 8.9 L Monocytes % 4.5 Eosinophils % 2.1 Basophils % 0.2 Nucleated Red Blood Cells % 0.0 Neutrophils # 8.4 H Lymphocytes # 0.9 Monocytes # 0.5 Eosinophils # 0.2 Basophils # 0.0 Nucleated Red Blood Cells # 0.0 Sodium Level 136 Potassium Level 3.7 Chloride Level 98 Carbon Dioxide Level 29 Anion Gap 13 Blood Urea Nitrogen 13 Creatinine 0.56 Glucose Level 116 Calcium Level 8.6 Medications Medications Current Medications Sodium Chloride (NS) 1,000 ml @ 30 mls/hr Q24H IV Last administered on 08:23; Admin Dose 30 MLS/HR; Start 09/21/17 at 06:41 Ondansetron HCl (Zofran Inj) 4 mg Q6H PRN IV NAUSEA AND/OR VOMITING; Start 09/21/17 at 07:00 Acetaminophen (Tylenol Tab) 650 mg Q6H PRN PO PAIN LEVEL 1-3 OR FEVER Last administered on 09/22/17 09:54; Admin Dose 650 MG; Start 09/21/17 at 07:00 Morphine Sulfate (morphine) 2 mg Q3H PRN IV pain Last administered on 14:58; Admin Dose 2 MG; Start 09/21/17 at 10:00 Acetaminophen/ Hydrocodone Bitart ([place] (5/325)) 1 tab Q6H PRN PO PAIN LEVEL 6 -10; Start 09/22/17 at 12:30 Pantoprazole (Protonix Tab) 40 mg DAILY@06 PO ; Start 09/23/17 at 06:00 ELIN GARCIA M.D. Sep 23, 2017 15:21
[2017-09-23] MEDS ORDERED: LEVALBUTEROL (NEB) 0.63 MG/3 ML AMP HHN PRN (17:00)
[2017-09-23] MEDS: MIRTAZAPINE 15 MG TAB PO SCH (21:18)
[2017-09-24] VITALS (14 sets, daily range): BP systolic 75–100; BP diastolic 50–64; PULSE 100–116; RESP 16–18
[2017-09-24] MEDS: ALBUTEROL/IPRATROPIUM (NEB) 3 ML AMP HHN SCH ×4 (01:53→20:11)
[2017-09-24] MEDS: SOD CHLORIDE 0.9% 1,000 ML IV SCH (05:39)
[2017-09-24] MEDS: PANTOPRAZOLE (EC) 40 MG TAB PO SCH (05:39)
[2017-09-24] MEDS: morphine 2 MG INJ IV PRN ×2 (08:07→13:42)
[2017-09-24 08:32] LABS: BASOPHILS % 0.4 % (0.0-2.0); EOSINOPHILS # 0.4 10^3/ul (0.0-0.5); EOSINOPHILS % 4.6 % (0.0-7.0); HEMOGLOBIN 11.5 g/dl (12.0-16.0); LYMPHOCYTES # 0.9 10^3/ul (0.8-2.9); LYMPHOCYTES % 10.9 % (15.0-51.0); MEAN CORPUSCULAR HEMOGLOBIN 31.7 pg (29.0-33.0); MEAN CORPUSCULAR HGB CONC 34.8 g/dl (32.0-37.0); MEAN CORPUSCULAR VOLUME 90.9 fl (82.0-101.0); MEAN PLATELET VOLUME 9.8 fl (7.4-10.4); MONOCYTE # 0.4 10^3/ul (0.3-0.9); MONOCYTES % 4.5 % (0.0-11.0); NEUTROPHIL # 6.1 10^3/ul (1.6-7.5); PLATELET COUNT 397 10^3/UL (140-415); RED BLOOD COUNT 3.63 10^6/ul (4.20-5.40); RED CELL DISTRIBUTION WIDTH 13.6 % (11.5-14.5); WHITE BLOOD COUNT 7.8 10^3/ul (4.8-10.8)
[2017-09-24 08:47] LABS: CALCIUM 8.8 mg/dl (8.4-10.2); CREATININE 0.51 mg/dl (0.44-1.00)
--- NOTE | 2017-09-24 09:09 | CONS ---
Date/Time of Note Date/Time of Note DATE: 09/24/17 TIME: 09:06 Assessment/Plan Assessment/Plan Chief Complaint/Hosp Course #ER+/[place]+/Her 2 negative Metastatic breast ca, involving her pleura, bones . Pt has already progressed through Aromasin/ Afinitor, Taxotere, Cytoxan and Gemzar , Ixempra and Xeloda -pt appears to have progressive disease given her recurring pleural effusions -also given CA 15-3 has significantly increased, started Doxil 50mg/m2 q 4 weeks was started on 09/20 -need at least 2 -3 cycles to see if patient is responsive to this chemo. #Shortness of breath -2/2 to recurrent malignant pleural effusion -pt again is s/p thoracentesis -f/u pulmonary recs to see if pleurex catheter is needed. currently there is minimal fluid on CXR #bone Metastasis -cont Zometa q 3 months Problems: Consultation Date/Type/Reason Admit Date/Time Sep 21, 2017 at 05:28 Initial Consult Date 09/23/17 Type of Consultation: oncology Reason for Consultation malignant pleural effusion Referring Provider: CÉSAR DICKINSON MD 24 HR Interval Summary Free Text/Dictation pt's SOB as improved since thoracentesis. CXR done this AM does not show enough fluid to place pleurex catheter Exam/Review of Systems Vital Signs Vitals Vital Signs Date Time Temp Pulse Resp B/P Pulse Ox O2 Delivery O2 Flow Rate FiO2 09/24/17 08:59 3.0 09/24/17 08:40 89 17 97 Nasal Cannula 09/24/17 07:50 98.0 100/64 Intake and Output 09/23/17 09/23/17 09/24/17 15:00 23:00 07:00 Intake Total 360 ml 230 ml Balance 360 ml 230 ml Exam Constitutional: alert, frail, oriented Psych: no complaints Head: normocephalic Eyes: nl conjunctiva ENMT: nl external ears & nose Neck: non-tender, supple Respiratory: diminished breath sounds Cardiovascular: regular rate and rhythm Gastrointestinal: soft Musculoskeletal: nl extremities to inspection, nl gait and stance Results Result Diagram: 09/24/17 0811 09/24/17 0811 Results 24 hrs Laboratory Tests Test 09/24/17 08:11 White Blood Count 7.8 # Red Blood Count 3.63 L Hemoglobin 11.5 L Hematocrit 33.0 L Mean Corpuscular Volume 90.9 Mean Corpuscular Hemoglobin 31.7 Mean Corpuscular Hemoglobin Concent 34.8 Red Cell Distribution Width 13.6 Platelet Count 397 Mean Platelet Volume 9.8 Neutrophils % 79.0 H Lymphocytes % 10.9 L Monocytes % 4.5 Eosinophils % 4.6 Basophils % 0.4 Nucleated Red Blood Cells % 0.0 Neutrophils # 6.1 Lymphocytes # 0.9 Monocytes # 0.4 Eosinophils # 0.4 Basophils # 0.0 Nucleated Red Blood Cells # 0.0 Sodium Level 137 Potassium Level 4.0 Chloride Level 100 Carbon Dioxide Level 28 Anion Gap 13 Blood Urea Nitrogen 16 Creatinine 0.51 Glucose Level 120 Calcium Level 8.8 Medications Medications Current Medications Sodium Chloride (NS) 1,000 ml @ 30 mls/hr Q24H IV Last administered on 05:39; Admin Dose 30 MLS/HR; Start 09/21/17 at 06:41 Ondansetron HCl (Zofran Inj) 4 mg Q6H PRN IV NAUSEA AND/OR VOMITING; Start 09/21/17 at 07:00 Acetaminophen (Tylenol Tab) 650 mg Q6H PRN PO PAIN LEVEL 1-3 OR FEVER Last administered on 09/22/17 09:54; Admin Dose 650 MG; Start 09/21/17 at 07:00 Morphine Sulfate (morphine) 2 mg Q3H PRN IV pain Last administered on 08:07; Admin Dose 2 MG; Start 09/21/17 at 10:00 Acetaminophen/ Hydrocodone Bitart ([place] (5/325)) 1 tab Q6H PRN PO PAIN LEVEL 6 -10; Start 09/22/17 at 12:30 Pantoprazole (Protonix Tab) 40 mg DAILY@06 PO Last administered on 09/24/17 05 :39; Admin Dose 40 MG; Start 09/23/17 at 06:00 Mirtazapine (Remeron) 15 mg HS PO Last administered on 09/23/17 21:18; Admin Dose 15 MG; Start 09/23/17 at 21:00 ELIN GARCIA M.D. Sep 24, 2017 09:09
--- NOTE | 2017-09-24 09:38 | RADRPT ---
PROCEDURE: XR Chest. CLINICAL INDICATION: Shortness of breath. TECHNIQUE: Single frontal view. COMPARISON: 09/22/2017. FINDINGS: The right-sided Port-A-Cath remains in satisfactory position with the tip in the lower superior vena cava. Surgical clips are present in the left axilla. There is atelectasis throughout the right lung base and there is a moderate right pleural effusion. There is a small left pleural effusion and mil d left basilar atelectasis. The heart size is normal. There is no pneumothorax. IMPRESSION: 1. Right Port-A-Cath. 2. Prior left axillary surgery. 3. Moderate right pleural effusion and right basilar atelectasis. 4. Small left pleural effusion and left basilar atelectasis. 5. No pneumothorax. 6. No significant change from the 09/22/2017 chest radiograph. RPTAT: QQ .Lawrence Reynoso MD, MD Date Time Electronically viewed and signed by .Lawrence Reynoso MD, on 09/24/2017 09:38 .R/
--- NOTE | 2017-09-24 10:44 | CONS ---
Date/Time of Note Date/Time of Note DATE: 09/24/17 TIME: 10:42 Assessment/Plan Assessment/Plan Additional Assessment/Plan Chest x-ray was reviewed from today which is showing stable findings compared to x-ray done 1 second of this month. There is small left pleural effusion with a moderate right pleural effusion without any interval worsening. Assessment and recommendations; 1. Patient admitted with shortness of breath due to bilateral pleural effusions from metastatic breast cancer. Status post left thoracentesis with stable chest x-ray findings 3 days post procedure. Consider discharge. Will obtain follow-up chest x-ray in 1 week on an outpatient basis. If the patient has recurrent effusions or any interval worsening then she will need to have a Pleurx catheter placed on either side. Possibly bilaterally. Consultation Date/Type/Reason Admit Date/Time Sep 21, 2017 at 05:28 Type of Consultation: Pulmonary Referring Provider: CÉSAR DICKINSON MD 24 HR Interval Summary Free Text/Dictation Patient's condition is stable. Denies any shortness of breath. Any chest pain. General exam; middle-aged female, appears quite emaciated. Currently in no distress. Exam/Review of Systems Vital Signs Vitals Vital Signs Date Time Temp Pulse Resp B/P Pulse Ox O2 Delivery O2 Flow Rate FiO2 09/24/17 08:59 3.0 09/24/17 08:40 89 17 97 Nasal Cannula 09/24/17 07:50 98.0 100/64 Intake and Output 09/23/17 09/23/17 09/24/17 15:00 23:00 07:00 Intake Total 360 ml 230 ml Balance 360 ml 230 ml Exam HEENT exam; supple neck, no JVD. No lymphadenopathy. Midline trachea. No thyromegaly. No neck masses. Chest exam; diminished breath sounds on bases bilaterally. Upper lobes are fairly clear. S1-S2 audible, no murmurs. Regular rhythm. Abdomen exam; soft, nondistended. Nontender. No organomegaly. Bowel sounds audible. Extremity exam; no edema. BELLMAKER exam; no focal deficit. Results Result Diagram: 09/24/17 0811 09/24/17 0811 Results 24 hrs Laboratory Tests Test 09/24/17 08:11 White Blood Count 7.8 # Red Blood Count 3.63 L Hemoglobin 11.5 L Hematocrit 33.0 L Mean Corpuscular Volume 90.9 Mean Corpuscular Hemoglobin 31.7 Mean Corpuscular Hemoglobin Concent 34.8 Red Cell Distribution Width 13.6 Platelet Count 397 Mean Platelet Volume 9.8 Neutrophils % 79.0 H Lymphocytes % 10.9 L Monocytes % 4.5 Eosinophils % 4.6 Basophils % 0.4 Nucleated Red Blood Cells % 0.0 Neutrophils # 6.1 Lymphocytes # 0.9 Monocytes # 0.4 Eosinophils # 0.4 Basophils # 0.0 Nucleated Red Blood Cells # 0.0 Sodium Level 137 Potassium Level 4.0 Chloride Level 100 Carbon Dioxide Level 28 Anion Gap 13 Blood Urea Nitrogen 16 Creatinine 0.51 Glucose Level 120 Calcium Level 8.8 Medications Medications Current Medications Sodium Chloride (NS) 1,000 ml @ 30 mls/hr Q24H IV Last administered on 05:39; Admin Dose 30 MLS/HR; Start 09/21/17 at 06:41 Ondansetron HCl (Zofran Inj) 4 mg Q6H PRN IV NAUSEA AND/OR VOMITING; Start 09/21/17 at 07:00 Acetaminophen (Tylenol Tab) 650 mg Q6H PRN PO PAIN LEVEL 1-3 OR FEVER Last administered on 09/22/17 09:54; Admin Dose 650 MG; Start 09/21/17 at 07:00 Morphine Sulfate (morphine) 2 mg Q3H PRN IV pain Last administered on 08:07; Admin Dose 2 MG; Start 09/21/17 at 10:00 Acetaminophen/ Hydrocodone Bitart ([place] (5/325)) 1 tab Q6H PRN PO PAIN LEVEL 6 -10; Start 09/22/17 at 12:30 Pantoprazole (Protonix Tab) 40 mg DAILY@06 PO Last administered on 09/24/17 05 :39; Admin Dose 40 MG; Start 09/23/17 at 06:00 Mirtazapine (Remeron) 15 mg HS PO Last administered on 09/23/17 21:18; Admin Dose 15 MG; Start 09/23/17 at 21:00 IRMA MOON Sep 24, 2017 10:44
--- NOTE | 2017-09-24 15:05 | PN ---
Date/Time of Note Date/Time of Note DATE: 09/24/17 TIME: 15:03 Assessment/Plan VTE Prophylaxis VTE Prophylaxis Intervention: SCD's Lines/Catheters IV [facility]): Peripheral IV Assessment/Plan Chief Complaint/Hosp Course Patient is tachycardic at times, looks comfortable on room air, continue to monitor. Assessment/Plan - Bilateral Malignant Effusions, status post left-sided thoracentesis with removal of 1.85 L of serosanguineous fluid on 09/22. Dr Barragan is following in pulmonology consultation. Minimal pleural effusion per recent chest x-ray. - Metastatic Breast Cancer involvement of pleura and bones. Dr. Hayes is following in hematology consultation - Status post left mastectomy - Depression, continue Remeron. Further recommendations based on clinical course. Plan of care discussed with Dr. Schultz. Problems: Exam/Review of Systems Vital Signs Vitals Vital Signs Date Time Temp Pulse Resp B/P Pulse Ox O2 Delivery O2 Flow Rate FiO2 09/24/17 14:05 85 18 96 21 09/24/17 12:40 98.9 90/58 09/24/17 08:59 3.0 09/24/17 08:40 Nasal Cannula Intake and Output 09/23/17 09/23/17 09/24/17 14:59 22:59 06:59 Intake Total 360 ml 230 ml Balance 360 ml 230 ml Exam Constitutional: alert, oriented Respiratory: normal air movement Cardiovascular: nl pulses, regular rate and rhythm Gastrointestinal: non-tender, soft Extremities: normal pulses Skin: other (Status post left mastectomy) Additional Comments Right chest Port-A-Cath Results Result Diagram: 09/24/17 0811 09/24/17 0811 Results 24 hrs Laboratory Tests Test 09/24/17 08:11 White Blood Count 7.8 # Red Blood Count 3.63 L Hemoglobin 11.5 L Hematocrit 33.0 L Mean Corpuscular Volume 90.9 Mean Corpuscular Hemoglobin 31.7 Mean Corpuscular Hemoglobin Concent 34.8 Red Cell Distribution Width 13.6 Platelet Count 397 Mean Platelet Volume 9.8 Neutrophils % 79.0 H Lymphocytes % 10.9 L Monocytes % 4.5 Eosinophils % 4.6 Basophils % 0.4 Nucleated Red Blood Cells % 0.0 Neutrophils # 6.1 Lymphocytes # 0.9 Monocytes # 0.4 Eosinophils # 0.4 Basophils # 0.0 Nucleated Red Blood Cells # 0.0 Sodium Level 137 Potassium Level 4.0 Chloride Level 100 Carbon Dioxide Level 28 Anion Gap 13 Blood Urea Nitrogen 16 Creatinine 0.51 Glucose Level 120 Calcium Level 8.8 Medications Medications Current Medications Sodium Chloride (NS) 1,000 ml @ 30 mls/hr Q24H IV Last administered on 05:39; Admin Dose 30 MLS/HR; Start 09/21/17 at 06:41 Ondansetron HCl (Zofran Inj) 4 mg Q6H PRN IV NAUSEA AND/OR VOMITING; Start 09/21/17 at 07:00 Acetaminophen (Tylenol Tab) 650 mg Q6H PRN PO PAIN LEVEL 1-3 OR FEVER Last administered on 09/22/17 09:54; Admin Dose 650 MG; Start 09/21/17 at 07:00 Morphine Sulfate (morphine) 2 mg Q3H PRN IV pain Last administered on 13:42; Admin Dose 2 MG; Start 09/21/17 at 10:00 Acetaminophen/ Hydrocodone Bitart ([place] (5/325)) 1 tab Q6H PRN PO PAIN LEVEL 6 -10; Start 09/22/17 at 12:30 Pantoprazole (Protonix Tab) 40 mg DAILY@06 PO Last administered on 09/24/17 05 :39; Admin Dose 40 MG; Start 09/23/17 at 06:00 Mirtazapine (Remeron) 15 mg HS PO Last administered on 09/23/17 21:18; Admin Dose 15 MG; Start 09/23/17 at 21:00 FANI MURRAY Sep 24, 2017 15:05
[2017-09-24] MEDS: MIRTAZAPINE 15 MG TAB PO SCH (20:57)
[2017-09-24] MEDS: HYDROCODONE/APAP (5/325) TAB PO PRN (20:57)
[2017-09-25] VITALS (12 sets, daily range): BP systolic 82–100; BP diastolic 50–67; PULSE 90–106; RESP 18–20
[2017-09-25] MEDS: ALBUTEROL/IPRATROPIUM (NEB) 3 ML AMP HHN SCH ×4 (01:01→20:47)
[2017-09-25] MEDS: PANTOPRAZOLE (EC) 40 MG TAB PO SCH (05:52)
[2017-09-25] MEDS: SOD CHLORIDE 0.9% 1,000 ML IV SCH (06:46)
[2017-09-25 07:20] LABS: BASOPHILS % 0.6 % (0.0-2.0); EOSINOPHILS # 0.4 10^3/ul (0.0-0.5); EOSINOPHILS % 5.4 % (0.0-7.0); HEMATOCRIT 32.3 % (37.0-47.0); HEMOGLOBIN 11.1 g/dl (12.0-16.0); LYMPHOCYTES % 13.9 % (15.0-51.0); MEAN CORPUSCULAR HEMOGLOBIN 31.4 pg (29.0-33.0); MEAN CORPUSCULAR HGB CONC 34.4 g/dl (32.0-37.0); MEAN CORPUSCULAR VOLUME 91.5 fl (82.0-101.0); MEAN PLATELET VOLUME 9.7 fl (7.4-10.4); MONOCYTE # 0.3 10^3/ul (0.3-0.9); MONOCYTES % 3.9 % (0.0-11.0); NEUTROPHIL # 5.2 10^3/ul (1.6-7.5); NEUTROPHILS % 75.6 % (39.0-77.0); PLATELET COUNT 396 10^3/UL (140-415); RED BLOOD COUNT 3.53 10^6/ul (4.20-5.40); WHITE BLOOD COUNT 6.9 10^3/ul (4.8-10.8)
[2017-09-25 07:50] LABS: CALCIUM 8.9 mg/dl (8.4-10.2); CREATININE 0.58 mg/dl (0.44-1.00)
[2017-09-25] MEDS: HYDROCODONE/APAP (5/325) TAB PO PRN ×4 (08:12→23:16)
--- NOTE | 2017-09-25 17:52 | PN ---
Date/Time of Note Date/Time of Note DATE: 09/25/17 TIME: 17:51 Assessment/Plan VTE Prophylaxis VTE Prophylaxis Intervention: SCD's Lines/Catheters IV [facility]ter [facility] (from [facility]): Saline Lock Assessment/Plan Chief Complaint/Hosp Course Patient is tachycardic at times, looks comfortable on on supplemental oxygen. Start PT. Assessment/Plan - Bilateral Malignant Effusions, status post left-sided thoracentesis with removal of 1.85 L of serosanguineous fluid on 09/22. Dr Barragan is following in pulmonology consultation. Minimal pleural effusion per recent chest x-ray. - Metastatic Breast Cancer involvement of pleura and bones. Dr. Hayes is following in hematology consultation - Status post left mastectomy - Depression, continue Remeron. Further recommendations based on clinical course. Plan of care discussed with Dr. Schultz. Problems: Exam/Review of Systems Vital Signs Vitals Vital Signs Date Time Temp Pulse Resp B/P Pulse Ox O2 Delivery O2 Flow Rate FiO2 09/25/17 16:15 106 09/25/17 16:00 98.3 18 89/50 94 09/25/17 14:51 Nasal Cannula 2.0 28 Intake and Output 09/24/17 09/24/17 09/25/17 15:00 23:00 07:00 Intake Total 500 ml Balance 500 ml Exam Constitutional: alert, oriented Respiratory: normal air movement Cardiovascular: nl pulses, regular rate and rhythm Gastrointestinal: non-tender, soft Extremities: normal pulses Skin: other (Status post left mastectomy) Additional Comments Right chest Port-A-Cath Results Result Diagram: 09/25/17 0701 09/25/17 0701 Results 24 hrs Laboratory Tests Test 09/25/17 07:01 White Blood Count 6.9 Red Blood Count 3.53 L Hemoglobin 11.1 L Hematocrit 32.3 L Mean Corpuscular Volume 91.5 Mean Corpuscular Hemoglobin 31.4 Mean Corpuscular Hemoglobin Concent 34.4 Red Cell Distribution Width 14.0 Platelet Count 396 Mean Platelet Volume 9.7 Neutrophils % 75.6 Lymphocytes % 13.9 L Monocytes % 3.9 Eosinophils % 5.4 Basophils % 0.6 Nucleated Red Blood Cells % 0.0 Neutrophils # 5.2 Lymphocytes # 1.0 Monocytes # 0.3 Eosinophils # 0.4 Basophils # 0.0 Nucleated Red Blood Cells # 0.0 Sodium Level 139 Potassium Level 4.0 Chloride Level 101 Carbon Dioxide Level 31 Anion Gap 11 Blood Urea Nitrogen 13 Creatinine 0.58 Glucose Level 116 Calcium Level 8.9 Medications Medications Current Medications Ondansetron HCl (Zofran Inj) 4 mg Q6H PRN IV NAUSEA AND/OR VOMITING; Start 09/21/17 at 07:00 Acetaminophen (Tylenol Tab) 650 mg Q6H PRN PO PAIN LEVEL 1-3 OR FEVER Last administered on 09/22/17 09:54; Admin Dose 650 MG; Start 09/21/17 at 07:00 Morphine Sulfate (morphine) 2 mg Q3H PRN IV pain Last administered on 13:42; Admin Dose 2 MG; Start 09/21/17 at 10:00 Acetaminophen/ Hydrocodone Bitart ([place] (5/325)) 1 tab Q6H PRN PO PAIN LEVEL 6 -10 Last administered on 09/25/17 16:20; Admin Dose 1 TAB; Start 09/22/17 at 12 :30 Pantoprazole (Protonix Tab) 40 mg DAILY@06 PO Last administered on 09/25/17 05 :52; Admin Dose 40 MG; Start 09/23/17 at 06:00 Mirtazapine (Remeron) 15 mg HS PO Last administered on 09/24/17 20:57; Admin Dose 15 MG; Start 09/23/17 at 21:00 FANI MURRAY Sep 25, 2017 17:52
[2017-09-25] MEDS: MIRTAZAPINE 15 MG TAB PO SCH (20:58)
[2017-09-26] VITALS (13 sets, daily range): BP systolic 84–114; BP diastolic 53–70; PULSE 103–122; RESP 18–19
[2017-09-26] MEDS: ALBUTEROL/IPRATROPIUM (NEB) 3 ML AMP HHN SCH ×4 (02:19→21:17)
[2017-09-26] MEDS: PANTOPRAZOLE (EC) 40 MG TAB PO SCH (05:43)
[2017-09-26 07:34] LABS: BASOPHIL # 0.1 10^3/ul (0.0-0.1); BASOPHILS % 0.9 % (0.0-2.0); EOSINOPHILS # 0.3 10^3/ul (0.0-0.5); EOSINOPHILS % 5.3 % (0.0-7.0); HEMATOCRIT 31.9 % (37.0-47.0); HEMOGLOBIN 10.8 g/dl (12.0-16.0); LYMPHOCYTES # 0.9 10^3/ul (0.8-2.9); LYMPHOCYTES % 13.4 % (15.0-51.0); MEAN CORPUSCULAR HEMOGLOBIN 31.5 pg (29.0-33.0); MEAN CORPUSCULAR HGB CONC 33.9 g/dl (32.0-37.0); MEAN PLATELET VOLUME 10.1 fl (7.4-10.4); MONOCYTE # 0.2 10^3/ul (0.3-0.9); MONOCYTES % 2.7 % (0.0-11.0); NEUTROPHIL # 4.9 10^3/ul (1.6-7.5); NEUTROPHILS % 76.9 % (39.0-77.0); PLATELET COUNT 409 10^3/UL (140-415); RED BLOOD COUNT 3.43 10^6/ul (4.20-5.40); RED CELL DISTRIBUTION WIDTH 14.2 % (11.5-14.5); WHITE BLOOD COUNT 6.4 10^3/ul (4.8-10.8)
[2017-09-26 07:49] LABS: CALCIUM 8.7 mg/dl (8.4-10.2); CREATININE 0.64 mg/dl (0.44-1.00); POTASSIUM 4.4 mmol/L (3.5-5.1)
[2017-09-26] MEDS: HYDROCODONE/APAP (5/325) TAB PO PRN (08:04)
--- NOTE | 2017-09-26 12:16 | CONS ---
Date/Time of Note Date/Time of Note DATE: 09/26/17 TIME: 12:13 Assessment/Plan Assessment/Plan Additional Assessment/Plan Assessment and recommendations; 1. Patient with history of widely metastatic breast cancer admitted for shortness of breath due to bilateral pleural effusions, status post left thoracentesis. 2. Mild anemia. 3. Patient currently on chemotherapy. Continue current treatment. Will obtain follow-up chest x-ray in 24 hours. If there is recurrent significant pleural effusion patient will need to have a Pleurx catheter placed either right or left. Consultation Date/Type/Reason Admit Date/Time Sep 21, 2017 at 05:28 Type of Consultation: Pulmonary Referring Provider: CÉSAR DICKINSON MD 24 HR Interval Summary Free Text/Dictation Patient's condition is stable. Denies any shortness of breath. Any chest pain. General exam; middle-aged woman, appears quite emaciated, currently in no distress. Awake and alert. Exam/Review of Systems Vital Signs Vitals Vital Signs Date Time Temp Pulse Resp B/P Pulse Ox O2 Delivery O2 Flow Rate FiO2 09/26/17 11:31 98.1 104 19 87/53 98 09/26/17 08:33 Nasal Cannula 3.0 09/25/17 14:51 28 Intake and Output 09/25/17 09/25/17 09/26/17 15:00 23:00 07:00 Intake Total 600 ml 500 ml Balance 600 ml 500 ml Exam HEENT exam; supple neck, no JVD. No lymphadenopathy. Midline trachea. No thyromegaly. Patient has a multiple carious teeth. Chest exam; diminished breath on lung bases bilaterally. Upper lobes are clear to auscultation. S1-S2 audible, no murmurs. Regular rhythm. Abdomen exam; soft, nontender. No organomegaly. Bowel sounds audible. Extremity exam; no edema. 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 Results Result Diagram: 09/26/17 0619 09/26/17 0619 Results 24 hrs Laboratory Tests Test 09/26/17 06:19 White Blood Count 6.4 Red Blood Count 3.43 L Hemoglobin 10.8 L Hematocrit 31.9 L Mean Corpuscular Volume 93.0 Mean Corpuscular Hemoglobin 31.5 Mean Corpuscular Hemoglobin Concent 33.9 Red Cell Distribution Width 14.2 Platelet Count 409 Mean Platelet Volume 10.1 Neutrophils % 76.9 Lymphocytes % 13.4 L Monocytes % 2.7 Eosinophils % 5.3 Basophils % 0.9 Nucleated Red Blood Cells % 0.0 Neutrophils # 4.9 Lymphocytes # 0.9 Monocytes # 0.2 L Eosinophils # 0.3 Basophils # 0.1 Nucleated Red Blood Cells # 0.0 Sodium Level 140 Potassium Level 4.4 Chloride Level 101 Carbon Dioxide Level 31 Anion Gap 12 Blood Urea Nitrogen 13 Creatinine 0.64 Glucose Level 106 Calcium Level 8.7 Medications Medications Current Medications Ondansetron HCl (Zofran Inj) 4 mg Q6H PRN IV NAUSEA AND/OR VOMITING; Start 09/21/17 at 07:00 Acetaminophen (Tylenol Tab) 650 mg Q6H PRN PO PAIN LEVEL 1-3 OR FEVER Last administered on 09/22/17 09:54; Admin Dose 650 MG; Start 09/21/17 at 07:00 Morphine Sulfate (morphine) 2 mg Q3H PRN IV pain Last administered on 13:42; Admin Dose 2 MG; Start 09/21/17 at 10:00 Acetaminophen/ Hydrocodone Bitart ([place] (5/325)) 1 tab Q6H PRN PO PAIN LEVEL 6 -10 Last administered on 09/26/17 08:04; Admin Dose 1 TAB; Start 09/22/17 at 12 :30 Pantoprazole (Protonix Tab) 40 mg DAILY@06 PO Last administered on 09/26/17 05 :43; Admin Dose 40 MG; Start 09/23/17 at 06:00 Mirtazapine (Remeron) 15 mg HS PO Last administered on 09/25/17 20:58; Admin Dose 15 MG; Start 09/23/17 at 21:00 IRMA MOON Sep 26, 2017 12:15
--- NOTE | 2017-09-26 14:23 | PN ---
Date/Time of Note Date/Time of Note DATE: 09/26/17 TIME: 14:21 Assessment/Plan VTE Prophylaxis VTE Prophylaxis Intervention: SCD's Lines/Catheters [facility] Saline Lock Assessment/Plan Assessment/Plan - Bilateral Malignant Effusions, status post left-sided thoracentesis with removal of 1.85 L of serosanguineous fluid on 09/22. Dr Barragan is following in pulmonology consultation. Minimal pleural effusion per recent chest x-ray. -Per pulmonary -No shortness of breath at present - Metastatic Breast Cancer involvement of pleura and bones. Dr. Hayes is following in hematology consultation - Status post left mastectomy - Depression, continue Remeron. Further recommendations based on clinical course. Plan of care discussed with Dr. Schultz. Subjective 24 Hr Interval Summary Free Text/Dictation No acute distress.No acute issues reported per staff overnight Denies any shortness of breath. Sitting up in the chair Status post left thoracentesis-acute issues Family at the bedside all questions answered Constitutional: improved Respiratory: no complaints Cardiovascular: no complaints Gastrointestinal: no complaints Genitourinary: no complaints Exam/Review of Systems Vital Signs Vitals Vital Signs Date Time Temp Pulse Resp B/P Pulse Ox O2 Delivery O2 Flow Rate FiO2 09/26/17 13:32 101 20 Nasal Cannula 3.0 09/26/17 11:31 98.1 87/53 98 09/25/17 14:51 28 Intake and Output 09/25/17 09/25/17 09/26/17 15:00 23:00 07:00 Intake Total 600 ml 500 ml Balance 600 ml 500 ml Exam Constitutional: alert, oriented, well developed Respiratory: diminished breath sounds (Status post left thoracentesis) Cardiovascular: nl pulses Results Result Diagram: 09/26/1761809/26/17618 Results 24 hrs Laboratory Tests Test 09/26/17 06:19 White Blood Count 6.4 Red Blood Count 3.43 L Hemoglobin 10.8 L Hematocrit 31.9 L Mean Corpuscular Volume 93.0 Mean Corpuscular Hemoglobin 31.5 Mean Corpuscular Hemoglobin Concent 33.9 Red Cell Distribution Width 14.2 Platelet Count 409 Mean Platelet Volume 10.1 Neutrophils % 76.9 Lymphocytes % 13.4 L Monocytes % 2.7 Eosinophils % 5.3 Basophils % 0.9 Nucleated Red Blood Cells % 0.0 Neutrophils # 4.9 Lymphocytes # 0.9 Monocytes # 0.2 L Eosinophils # 0.3 Basophils # 0.1 Nucleated Red Blood Cells # 0.0 Sodium Level 140 Potassium Level 4.4 Chloride Level 101 Carbon Dioxide Level 31 Anion Gap 12 Blood Urea Nitrogen 13 Creatinine 0.64 Glucose Level 106 Calcium Level 8.7 Medications Medications Current Medications Ondansetron HCl (Zofran Inj) 4 mg Q6H PRN IV NAUSEA AND/OR VOMITING; Start 09/21/17 at 07:00 Acetaminophen (Tylenol Tab) 650 mg Q6H PRN PO PAIN LEVEL 1-3 OR FEVER Last administered on 09/22/17 09:54; Admin Dose 650 MG; Start 09/21/17 at 07:00 Morphine Sulfate (morphine) 2 mg Q3H PRN IV pain Last administered on 13:42; Admin Dose 2 MG; Start 09/21/17 at 10:00 Acetaminophen/ Hydrocodone Bitart ([place] (5/325)) 1 tab Q6H PRN PO PAIN LEVEL 6 -10 Last administered on 09/26/17 08:04; Admin Dose 1 TAB; Start 09/22/17 at 12 :30 Pantoprazole (Protonix Tab) 40 mg DAILY@06 PO Last administered on 09/26/17 05 :43; Admin Dose 40 MG; Start 09/23/17 at 06:00 Mirtazapine (Remeron) 15 mg HS PO Last administered on 09/25/17 20:58; Admin Dose 15 MG; Start 09/23/17 at 21:00 KERLINE BAEZ Sep 26, 2017 14:23
[2017-09-26] MEDS: morphine 2 MG INJ IV PRN ×2 (14:44→20:31)
--- NOTE | 2017-09-26 14:52 | CONS ---
Date/Time of Note Date/Time of Note DATE: 09/26/17 TIME: 14:50 Assessment/Plan Assessment/Plan Chief Complaint/Hosp Course #ER+/CA+/Her 2 negative Metastatic breast ca, involving her pleura, bones . Pt has already progressed through Aromasin/ Afinitor, Taxotere, Cytoxan and Gemzar , Ixempra and Xeloda -pt appears to have progressive disease given her recurring pleural effusions -also given CA 15-3 has significantly increased, started Doxil 50mg/m2 q 4 weeks was started on 09/20 -need at least 2 -3 cycles to see if patient is responsive to this chemo. #Shortness of breath -2/2 to recurrent malignant pleural effusion -pt again is s/p thoracentesis -f/u pulmonary recs to see if pleurex catheter is needed. currently there is minimal fluid on CXR #bone Metastasis -cont Zometa q 3 months Problems: Consultation Date/Type/Reason Admit Date/Time Sep 21, 2017 at 05:28 Initial Consult Date 09/23/17 Type of Consultation: oncology Reason for Consultation metastatic breast cancer Referring Provider: CÉSAR DICKINSON MD 24 HR Interval Summary Free Text/Dictation breathing better Exam/Review of Systems Vital Signs Vitals Vital Signs Date Time Temp Pulse Resp B/P Pulse Ox O2 Delivery O2 Flow Rate FiO2 09/26/17 13:32 101 20 Nasal Cannula 3.0 09/26/17 11:31 98.1 87/53 98 09/25/17 14:51 28 Intake and Output 09/25/17 09/25/17 09/26/17 15:00 23:00 07:00 Intake Total 600 ml 500 ml Balance 600 ml 500 ml Exam Constitutional: alert, oriented Psych: no complaints Head: normocephalic Eyes: nl conjunctiva ENMT: nl external ears & nose Neck: non-tender, supple Respiratory: clear to auscultation Cardiovascular: regular rate and rhythm Gastrointestinal: soft Musculoskeletal: nl extremities to inspection, nl gait and stance Results Result Diagram: 09/26/1719 09/26/1719 Results 24 hrs Laboratory Tests Test 09/26/17 06:19 White Blood Count 6.4 Red Blood Count 3.43 L Hemoglobin 10.8 L Hematocrit 31.9 L Mean Corpuscular Volume 93.0 Mean Corpuscular Hemoglobin 31.5 Mean Corpuscular Hemoglobin Concent 33.9 Red Cell Distribution Width 14.2 Platelet Count 409 Mean Platelet Volume 10.1 Neutrophils % 76.9 Lymphocytes % 13.4 L Monocytes % 2.7 Eosinophils % 5.3 Basophils % 0.9 Nucleated Red Blood Cells % 0.0 Neutrophils # 4.9 Lymphocytes # 0.9 Monocytes # 0.2 L Eosinophils # 0.3 Basophils # 0.1 Nucleated Red Blood Cells # 0.0 Sodium Level 140 Potassium Level 4.4 Chloride Level 101 Carbon Dioxide Level 31 Anion Gap 12 Blood Urea Nitrogen 13 Creatinine 0.64 Glucose Level 106 Calcium Level 8.7 Medications Medications Current Medications Ondansetron HCl (Zofran Inj) 4 mg Q6H PRN IV NAUSEA AND/OR VOMITING; Start 09/21/17 at 07:00 Acetaminophen (Tylenol Tab) 650 mg Q6H PRN PO PAIN LEVEL 1-3 OR FEVER Last administered on 09/22/17 09:54; Admin Dose 650 MG; Start 09/21/17 at 07:00 Morphine Sulfate (morphine) 2 mg Q3H PRN IV pain Last administered on 14:44; Admin Dose 2 MG; Start 09/21/17 at 10:00 Acetaminophen/ Hydrocodone Bitart ([place] (5/325)) 1 tab Q6H PRN PO PAIN LEVEL 6 -10 Last administered on 09/26/17 08:04; Admin Dose 1 TAB; Start 09/22/17 at 12 :30 Pantoprazole (Protonix Tab) 40 mg DAILY@06 PO Last administered on 09/26/17 05 :43; Admin Dose 40 MG; Start 09/23/17 at 06:00 Mirtazapine (Remeron) 15 mg HS PO Last administered on 09/25/17 20:58; Admin Dose 15 MG; Start 09/23/17 at 21:00 ELIN GARCIA M.D. Sep 26, 2017 14:52
[2017-09-26] MEDS: MIRTAZAPINE 15 MG TAB PO SCH (20:31)
[2017-09-27] VITALS (11 sets, daily range): BP systolic 84–122; BP diastolic 52–65; PULSE 100–124; RESP 18–20
[2017-09-27] MEDS: morphine 2 MG INJ IV PRN (01:57)
[2017-09-27] MEDS: ALBUTEROL/IPRATROPIUM (NEB) 3 ML AMP HHN SCH ×4 (02:03→19:24)
[2017-09-27] MEDS: PANTOPRAZOLE (EC) 40 MG TAB PO SCH (05:33)
--- NOTE | 2017-09-27 06:56 | RADRPT ---
PROCEDURE: XR Chest. CLINICAL INDICATION: Follow-up pleural effusion TECHNIQUE: AP Portable chest. COMPARISON: 09/24/2017, 09/22/2017, 09/21/2017 and 09/14/2017 FINDINGS: The soft tissues and osseous structures demonstrate status post left axillary surgical changes. A ri ght dong catheter is again noted tip in the superior vena cava. No pneumothorax is present. No sign ificant interval change is present in the moderate right and small left pleural effusion. Bibasilar discoid atelectasis is present. The heart size and mediastinum appear normal. IMPRESSION: 1. No significant interval change when compared with 09/24/2017. 2. Right dong catheter tip in superior vena cava without pneumothorax 3. Moderate right and small left pleural effusions 4. Bibasilar atelectasis 5. Left axillary surgical changes RPTAT: HDC .Liberty Horne MD, MD Date Time Electronically viewed and signed by .Liberty Horne MD, on 09/27/2017 06:55 .C/
[2017-09-27 07:16] LABS: BASOPHIL # 0.1 10^3/ul (0.0-0.1); BASOPHILS % 0.8 % (0.0-2.0); EOSINOPHILS # 0.3 10^3/ul (0.0-0.5); EOSINOPHILS % 4.1 % (0.0-7.0); HEMATOCRIT 31.8 % (37.0-47.0); HEMOGLOBIN 10.7 g/dl (12.0-16.0); LYMPHOCYTES # 0.9 10^3/ul (0.8-2.9); LYMPHOCYTES % 14.4 % (15.0-51.0); MEAN CORPUSCULAR HEMOGLOBIN 31.4 pg (29.0-33.0); MEAN CORPUSCULAR HGB CONC 33.6 g/dl (32.0-37.0); MEAN CORPUSCULAR VOLUME 93.3 fl (82.0-101.0); MEAN PLATELET VOLUME 9.7 fl (7.4-10.4); MONOCYTE # 0.2 10^3/ul (0.3-0.9); MONOCYTES % 3.1 % (0.0-11.0); NEUTROPHIL # 4.7 10^3/ul (1.6-7.5); NEUTROPHILS % 76.9 % (39.0-77.0); PLATELET COUNT 407 10^3/UL (140-415); RED BLOOD COUNT 3.41 10^6/ul (4.20-5.40); RED CELL DISTRIBUTION WIDTH 14.1 % (11.5-14.5); WHITE BLOOD COUNT 6.1 10^3/ul (4.8-10.8)
[2017-09-27 07:39] LABS: CALCIUM 8.9 mg/dl (8.4-10.2); CREATININE 0.56 mg/dl (0.44-1.00); POTASSIUM 4.4 mmol/L (3.5-5.1)
--- NOTE | 2017-09-27 09:27 | CONS ---
Date/Time of Note Date/Time of Note DATE: 09/27/17 TIME: 09:25 Assessment/Plan Assessment/Plan Additional Assessment/Plan Chest x-ray was reviewed from today which is showing mild bilateral pleural effusions unchanged from study from the fifth of this month. Assessment and recommendations; 1. Patient with history of metastatic breast cancer admitted with shortness of breath due to bilateral pleural effusions status post thoracentesis without any significant reaccumulation. 2. Patient on chemotherapy. 3. Mild anemia. Continue current supportive care. Obtain follow-up chest x-ray in 1 week's time. Please reconsult us if there is significant recommendation of pleural effusion at that point. Consultation Date/Type/Reason Admit Date/Time Sep 21, 2017 at 05:28 Type of Consultation: Pulmonary Referring Provider: CÉSAR DICKINSON MD 24 HR Interval Summary Free Text/Dictation Patient's condition is stable. Denies any shortness of breath, chest pain. General exam; middle-aged woman, awake, currently in no distress. Exam/Review of Systems Vital Signs Vitals Vital Signs Date Time Temp Pulse Resp B/P Pulse Ox O2 Delivery O2 Flow Rate FiO2 09/27/17 08:54 Nasal Cannula 3.0 09/27/17 08:39 105 20 95 09/27/17 07:47 98.0 84/52 09/25/17 14:51 28 Intake and Output 09/26/17 09/26/17 09/27/17 15:00 23:00 07:00 Intake Total 700 ml Balance 700 ml Exam HEENT exam; supple neck, no JVD. No lymphadenopathy. Midline trachea. No thyromegaly. Patient has fair dentition. Chest exam; minimally decreased breath sounds in lower lobes. Upper lobes are clear to auscultation. S1-S2 audible, no murmurs. Regular rhythm. Abdomen exam; soft, nontender. No organomegaly. Bowel sounds audible. Extremity exam; no edema. No clubbing. PRODUCT ADVISOR exam; no focal deficit. Results Result Diagram: 09/27/17 0646 09/27/17 0646 Results 24 hrs Laboratory Tests Test 09/27/17 06:46 White Blood Count 6.1 Red Blood Count 3.41 L Hemoglobin 10.7 L Hematocrit 31.8 L Mean Corpuscular Volume 93.3 Mean Corpuscular Hemoglobin 31.4 Mean Corpuscular Hemoglobin Concent 33.6 Red Cell Distribution Width 14.1 Platelet Count 407 Mean Platelet Volume 9.7 Neutrophils % 76.9 Lymphocytes % 14.4 L Monocytes % 3.1 Eosinophils % 4.1 Basophils % 0.8 Nucleated Red Blood Cells % 0.0 Neutrophils # 4.7 Lymphocytes # 0.9 Monocytes # 0.2 L Eosinophils # 0.3 Basophils # 0.1 Nucleated Red Blood Cells # 0.0 Sodium Level 138 Potassium Level 4.4 Chloride Level 103 Carbon Dioxide Level 27 Anion Gap 12 Blood Urea Nitrogen 12 Creatinine 0.56 Glucose Level 108 Calcium Level 8.9 Medications Medications Current Medications Ondansetron HCl (Zofran Inj) 4 mg Q6H PRN IV NAUSEA AND/OR VOMITING; Start 09/21/17 at 07:00 Acetaminophen (Tylenol Tab) 650 mg Q6H PRN PO PAIN LEVEL 1-3 OR FEVER Last administered on 09/22/17 09:54; Admin Dose 650 MG; Start 09/21/17 at 07:00 Morphine Sulfate (morphine) 2 mg Q3H PRN IV pain Last administered on 01:57; Admin Dose 2 MG; Start 09/21/17 at 10:00 Acetaminophen/ Hydrocodone Bitart ([place] (5/325)) 1 tab Q6H PRN PO PAIN LEVEL 6 -10 Last administered on 09/26/17 08:04; Admin Dose 1 TAB; Start 09/22/17 at 12 :30 Pantoprazole (Protonix Tab) 40 mg DAILY@06 PO Last administered on 09/27/17 05 :33; Admin Dose 40 MG; Start 09/23/17 at 06:00 Mirtazapine (Remeron) 15 mg HS PO Last administered on 09/26/17 20:31; Admin Dose 15 MG; Start 09/23/17 at 21:00 IRMA MOON Sep 27, 2017 09:27
[2017-09-27] MEDS: HYDROCODONE/APAP (5/325) TAB PO PRN ×2 (09:56→18:32)
[2017-09-27] MEDS ORDERED: HYDR-3498 PO (19:20)
--- NOTE | 2017-09-27 20:35 | DS ---
Date/Time of Note Date/Time of Note DATE: 09/27/17 TIME: 20:32 Discharge Summary Admission/Discharge Info Admit Date/Time Sep 21, 2017 at 05:28 Discharge Date/Time Sep 27, 2017 at 20:27 Patient Condition: Stable Hx of Present Illness The pt is a 51-year-old female is admitted with shortness of breath due to recurrent bilateral pleural effusions. ER Chest x-ray showed left large pleural effusion as compared to right side. Pulmonary consult obtained. Patient has past medical history of metastatic ER/FL positive and HER-2 negative breast cancer, currently involving her bones, pleura and lymph nodes, as well as recurrent pleural effusions, who presents with shortness of breath occurring for 1 days. Denies any fevers or chills, upper or lower GI bleeding, no nausea or vomiting. No diarrhea no constipation, no headaches or dizziness or loss of consciousness. Patient has previous hospitalization with same diagnosis and has a history of thoracentesis as well. Hospital Course - Bilateral Malignant Effusions, status post left-sided thoracentesis with removal of 1.85 L of serosanguineous fluid on 09/22. Dr Barragan is following in pulmonology consultation. Minimal pleural effusion per recent chest x-ray. Radiology is unable to place Pleur-evac every 2 minimal pleural effusion. Chest x-ray in 1 week as an outpatient at pulmonology or PCP office. - Metastatic Breast Cancer involvement of pleura and bones. Dr. Hayes is following in hematology consultation - Status post left mastectomy - Depression, continue Remeron. Plan of care discussed with Dr. Schultz. Home Meds Active Scripts Hydrocodone Bit-Acetaminophen (Hydrocodone Bit-APAP) 5-325MG Tablet, 1 TAB PO Q6H Y for PAIN LEVEL 6-10 for 30 Days, TAB Prov:FANI MURRAY 09/27/17 Reported Medications Mirtazapine* (Mirtazapine*) 15 Mg Tablet, 15 MG PO HS, TAB 04/22/17 Albuterol Sulfate* (Ventolin HFA*) 18 Gm Hfa.aer.ad, 2 PUFF INHALATION Q6H, #1 INHALER 04/22/17 Discontinued Reported Medications Palbociclib (Ibrance) 125 Mg Capsule, 125 MG PO DAILY, CAP 04/22/17 Oxycodone Hcl* (IR) (Roxicodone*) 5 Mg Tab, 5 MG PO Q4H Y for PAIN, TAB 04/03/17 Follow-up Plan Follow-up with Dr. Hayes on Saturday, follow-up with Dr. Escamilla pulmonology in 1 week, chest x-ray in 1 week at pulmonology, if unable to obtain appointment obtain chest x-ray at a primary PCP office. Primary Care Provider [facility] Time spent on discharge: > 30 minutes Pending Labs Laboratory Tests Test 09/27/17 06:46 White Blood Count 6.110^3/ul (4.8-10.8) Red Blood Count 3.4110^6/ul (4.20-5.40) Hemoglobin 10.7g/dl (12.0-16.0) Hematocrit 31.8% (37.0-47.0) Mean Corpuscular Volume 93.3fl (82.0-101.0) Mean Corpuscular Hemoglobin 31.4pg (29.0-33.0) Mean Corpuscular Hemoglobin Concent 33.6g/dl (32.0-37.0) Red Cell Distribution Width 14.1% (11.5-14.5) Platelet Count 53536^3/UL (140-415) Mean Platelet Volume 9.7fl (7.4-10.4) Neutrophils % 76.9% (39.0-77.0) Lymphocytes % 14.4% (15.0-51.0) Monocytes % 3.1% (0.0-11.0) Eosinophils % 4.1% (0.0-7.0) Basophils % 0.8% (0.0-2.0) Nucleated Red Blood Cells % 0.0/100WBC (0.0-0.0) Neutrophils # 4.710^3/ul (1.6-7.5) Lymphocytes # 0.910^3/ul (0.8-2.9) Monocytes # 0.210^3/ul (0.3-0.9) Eosinophils # 0.310^3/ul (0.0-0.5) Basophils # 0.110^3/ul (0.0-0.1) Nucleated Red Blood Cells # 0.010^3/ul (0.0-0.0) Sodium Level 138mmol/L (135-144) Potassium Level 4.4mmol/L (3.5-5.1) Chloride Level 103mmol/L (97-110) Carbon Dioxide Level 27mmol/L (21-31) Anion Gap 12 (8-16) Blood Urea Nitrogen 12mg/dl (7-20) Creatinine 0.56mg/dl (0.44-1.00) Glucose Level 108mg/dl (70-220) Calcium Level 8.9mg/dl (8.4-10.2) FANI MURRAY Sep 27, 2017 20:35
== END 2017-09-27 20:27 | disposition home or self-care (01) | DRG 597 ==
LOC: MS4 05:28
PROVIDERS: ADMIT Family Medicine; ATTEND Internal Medicine
PROC: 0W9B3ZZ Drainage of Left Pleural Cavity, Percutaneous Approach (ICD-10-PCS; principal; 2017-09-22)
DX: C50.912 Malignant neoplasm of unspecified site of left female breast (principal); J96.21 Acute and chronic respiratory failure with hypoxia; J91.0 Malignant pleural effusion; C77.9 Secondary and unspecified malignant neoplasm of lymph node, unspecified; C78.2 Secondary malignant neoplasm of pleura; C79.51 Secondary malignant neoplasm of bone; Z17.0 Estrogen receptor positive status [ER+]; H10.9 Unspecified conjunctivitis; Z90.12 Acquired absence of left breast and nipple; F32.9 Major depressive disorder, single episode, unspecified; D64.9 Anemia, unspecified
CPT/HCPCS: 32555; 71010; 80048; 80053; 82565; 83036; 83735; 84520; 85025; 85610; 85730; 87081; 93971; 94640; 94664; 97162; J0692; J2270; J3370; J7030

== ENCOUNTER 2017-10-03 17:55 | Inpatient (IN) | END 2017-10-24 17:28 | disposition home or self-care (01) | DRG 598 ==

== ENCOUNTER 2017-10-28 18:22 | Inpatient (IN) | END 2017-11-01 23:55 | disposition home health service (06) | DRG 181 ==

== ENCOUNTER 2017-11-15 14:14 | Inpatient (IN) | END 2017-11-20 18:55 | disposition home health service (06) | DRG 919 ==

== ENCOUNTER 2017-12-09 20:52 | Inpatient (IN) | END 2017-12-17 07:30 | disposition EXP | DRG 207 ==